=== PATIENT | female | born 1970 | race Caucasian/White ===

== ENCOUNTER 2020-06-08 19:47 | Emergency (ER) | payer OTHER, SELFPAY ==
[2020-06-08 19:49] VITALS: BP 168/94; PULSE 72; RESP 18; TEMP 36.6; O2SAT 99
--- NOTE | 2020-06-08 20:12 | ED.FEMALEGU ---
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 Patient states that she is on menopause and has not bled in 2 years. Patient denies any chest pain, shortness of breath, abdominal pain, rectal bleeding, nausea, vomiting, fever or chills. Patient states that she has an appointment w for an ultrasound ordered by her PCP. Related Data Home Medications Medication Instructions Recorded Confirmed carvedilol 06/08/20 esomeprazole magnesium mg 06/08/20 hydrochlorothiazide 06/08/20 hydrocodone-acetaminophen 06/08/20 lorazepam 06/08/20 magnesium oxide mg 06/08/20 Allergies Allergy/AdvReac Type Severity Reaction Status Date / Time amoxicillin [From Amoxil] Allergy Rash Verified 06/08/20 19:54 Penicillins Allergy Rash Verified 06/08/20 19:54 Review of Systems Review of Systems: All systems reviewed & are unremarkable except as noted in HPI and below Constitutional: Constitutional: Denies body ache(s), Denies chills, Denies excessive sweating, Denies fatigue, Denies fever(s), Denies headache(s), Denies lethargy, Denies malaise, Denies weakness and Denies weight loss Eyes: Eyes: Denies blurry vision, Denies change in vision and Denies loss of vision ENT: Denies dizziness, Denies ear discharge, Denies headache(s), Denies lip swelling, Denies epistaxis, Denies nasal congestion, Denies neck pain, Denies throat swelling and Denies tongue swelling Cardiovascular: Cardiovascular: Denies chest pain, Denies chest pain at rest, Denies chest pain with activity, Denies diaphoresis, Denies rapid heart rate, Denies edema, Denies irregular heart rhythm, Denies lightheadedness, Denies palpitations, Denies dyspnea and Denies dyspnea on exertion Respiratory: Respiratory: Denies chest congestion, Denies cough, Denies hemoptysis, Denies dyspnea and Denies dyspnea on exertion Gastrointestinal: Gastrointestinal: Denies abdominal pain, Denies melena, Denies hematochezia, Denies diarrhea, Denies nausea, Denies vomiting and Denies hematemesis Musculoskeletal: Musculoskeletal: Denies abnormal gait, Denies deformity, Denies joint swelling, Denies limited range of motion, Denies neck pain and Denies numbness Neurologic: Denies Abnormal speech present, Denies abnormal gait, Denies confusion, Denies dizziness, Denies headache(s), Denies focal weakness, Denies loss of vision, Denies numbness, Denies Other visual disturbances, Denies Sensory deficit (Neuro) and Denies weakness Psychiatric: Psychiatric: Denies confusion, Denies depression, Denies auditory hallucinations, Denies homicidal ideation and Denies suicidal ideation Endocrine: Endocrine: Denies cold intolerance, Denies excessive sweating, Denies fatigue, Denies heat intolerance and Denies palpitations Hematologic/Lymphatic: Hematologic/Lymphatic: Denies easy bruising Allergic/Immunologic: Allergic/Immunologic: Denies lip swelling, Denies throat swelling and Denies tongue swelling PMF Social History Social History Gender identity (if verbalized by the patient): Female Sexual Orientation (if Verbalized by the Patient): Straight or Heterosexual Comments Past medical history: Exam Const: General: cooperative, healthy appearing, comfortable, no acute distress, well developed, alert and awake; No confusion Orientation/consciousness: oriented to person, oriented to place, oriented to time, patient oriented x3 and No confusion Limitations: no limitations HENMT: Head: normal to inspection, normocephalic and atraumatic Ears: he
[2020-06-08 20:58] LABS: Basophils Percent Auto 0.4 % (0.2-1.2); Eosinophils Absolute Auto 0.2 K/mm3 (0-0.3); Eosinophils Percent Auto 2.4 % (0-4.4); Hematocrit 39.1 % (37.0-47.0); Hemoglobin 12.4 g/dL (12.0-15.0); Immature Granulocyte Absolute 0.02 K/mm3 (0.00-0.031); Immature Granulocyte Percent A 0.2 % (0-0.5); Lymphocytes Absolute Auto 1.62 K/mm3 (0.9-3.2); Lymphocytes Percent Auto 19.2 % (18.3-44.2); Mean Corpuscular HGB Conc 31.7 g/dl (32-36); Mean Corpuscular Hemoglobin 25.5 pg (26-34); Mean Corpuscular Volume 80.5 fl (80-100); Mean Platelet Volume 10.8 fl (7.4-10.4); Monocytes Absolute Auto 0.8 K/mm3 (0.1-0.6); Monocytes Percent Auto 9.4 % (2.6-8.5); Neutrophils Absolute Auto 5.8 K/mm3 (1.3-6.7); Neutrophils Percent Auto 68.4 % (45.5-73.1); Platelet Count Result 208 k/mm3 (150-375); Red Blood Count 4.86 M/mm3 (4.2-5.4); Red Cell Distribution Width 16.7 % (11.5-14.5); White Blood Count 8.4 K/mm3 (4.5-10.0)
[2020-06-08] MEDS: SODIUM CHLORIDE 0.9% IV 1,000 ML 999 ML IV CONT (20:59)
[2020-06-08 21:08] LABS: INR 0.9; Prothrombin Time 12.7 Seconds (11.1-14.7)
[2020-06-08 21:09] LABS: Partial Thromboplastin Time 41.6 SECONDS (22.3-36.8)
[2020-06-08 21:19] LABS: Alanine Aminotransferase 20 U/L (4-35); Albumin Level 4.1 g/dL (3.5-5.1); Alkaline Phosphatase 76 U/L (38-126); Anion Gap 5 mmol/L (8-16); Aspartate Amino Transferase 20 U/L (14-36); Bilirubin,Total 0.1 mg/dL (0.2-1.3); Blood Urea Nitrogen 22 mg/dL (7-17); Calcium 8.9 mg/dL (8.4-10.2); Carbon Dioxide 30 mmol/L (22-30); Chloride 106 mmol/L (98-107); Estimated CRCL calculation 140 ml/min; Estimated Glomerular Filt Rate > 60; Glucose 133 mg/dL (65-105); Potassium 3.6 mmol/L (3.4-5.0); Sodium 141 mmol/L (137-145)
[2020-06-08 23:10] VITALS: BP 146/109; PULSE 60; RESP 14; TEMP 36.6; O2SAT 100
== END 2020-06-08 23:11 | disposition home or self-care (01) ==
PROVIDERS: Emergency Provider Emergency Medicine; PCP Family Medicine
DX: N93.8 Other specified abnormal uterine and vaginal bleeding (principal)
CPT/HCPCS: 36415; 80053; 85025; 85610; 85730; 96360; 99283; J7030

== ENCOUNTER → 2020-12-19 13:37 | Outpatient (CLI) | payer OTHER, SELFPAY ==
--- NOTE | ~2020-12-19 | XR_ITS ---
EXAMINATION: XR knee RT 3V DATE: 12/19/2020 14:40 INDICATION: Right knee pain. TECHNIQUE: 3 views of right knee including standing views were obtained. COMPARISON: Right knee radiographs 12/01/2019 FINDINGS: There is varus angulation at the knee. No fracture. There is moderate osteoarthritis of med ial and patellofemoral compartments and mild osteoarthritis of lateral compartment. No knee joint eff usion. IMPRESSION: 1. Moderate right knee osteoarthritis. Reviewed, dictated and finalized at location A.
--- NOTE | ~2020-12-19 | XR_ITS ---
EXAMINATION: XR knee LT 3V DATE: 12/19/2020 14:40 INDICATION: Left knee pain. TECHNIQUE: 3 views of left knee including standing views were obtained. COMPARISON: Left knee radiographs 12/01/2019 FINDINGS: There is varus angulation at the knee. No fracture. There is moderate osteoarthritis of med ial and patellofemoral compartments and mild osteoarthritis of lateral compartment. IMPRESSION: 1. Moderate left knee osteoarthritis. Reviewed, dictated and finalized at location A.
== END ==
PROVIDERS: Visit Provider Orthopaedic Surgery
DX: M17.0 Bilateral primary osteoarthritis of knee (principal)
CPT/HCPCS: 73562

== ENCOUNTER → 2022-05-31 10:14 | Outpatient (CLI) | payer OTHER, SELFPAY ==
--- NOTE | ~2022-05-31 | CT_ITS ---
EXAMINATION: CT abdomen pelvis w con DATE: 05/31/2022 10:44 INDICATION: Abdominal pain. History of bariatric surgery in January 2022 TECHNIQUE: Computed tomography (CT) of the abdomen and pelvis was performed with 100 CC Omnipaque 350 intravenous contrast. Automated exposure control and iterative reconstruction technique were employe d. Exam dose: 1018.63 mGy-cm total exam DLP. COMPARISON: None. FINDINGS: Right foramen of Bochdalek fat-containing hernia. Lung bases are clear of infiltrate or con solidation. Normal heart size. No pericardial or pleural effusion. Small sliding hiatal hernia. Status post gastric bypass surgery. Up to approximately 6 cm wide 5.7 cm vertical dimension supraumbilical ventral abdominal wall defect with fat herniation. The liver, gallbladder, bile ducts, pancreas, pancreatic duct and spleen are unremarkable. Normal morphology of the adrenal glands. No renal mass lesion or urinary tract calculus or hydroureteronephrosis. The urinary bladder and uter us are unremarkable. Status post bilateral tubal ligation. Diverticulosis of left and right colon, most numerous in the sigmoid and descending colon areas. No C T evidence of diverticulitis. No bowel obstruction or intraperitoneal free air is detected. The appen sommer is not definitively identified but no inflammatory changes noted in the right lower quadrant. Degenerative spurring of the lower thoracic spine. Grade 1 anterolisthesis at L4-5 and L5-S1 due to degenerative change at the apophyseal joints. Moderately severe degenerative disc disease at L5-S1. IMPRESSION: Prominent upper ventral wall defect with fat herniation Status post gastric bypass surgery Small sliding hiatal hernia Diverticulosis of the colon; no evidence of diverticulitis Reviewed, dictated and finalized at Location A. Reviewed, dictated and finalized at location B.
[2022-05-31 10:35] LABS: Estimated Glomerular Filt Rate > 60
== END ==
PROVIDERS: PCP Family Medicine
DX: R10.9 Unspecified abdominal pain (principal); R19.00 Intra-abdominal and pelvic swelling, mass and lump, unspecified site; K44.9 Diaphragmatic hernia without obstruction or gangrene; K57.30 Diverticulosis of large intestine without perforation or abscess without bleeding; Z98.84 Bariatric surgery status
CPT/HCPCS: 74177; Q9967

== ENCOUNTER 2024-08-05 23:14 | Emergency (ER) | payer OTHER, SELFPAY ==
--- OUTSIDE RECORDS SUMMARY | 2024-08-05 23:17 | XMS_ITS | Continuity of Care Document ---
Author Organization [facility] Address [address] [place] [address] Phone Care Team Providers Care Manager Architecture Name Role Phone Deacon Contreras Unavailable Unavailable [...] Diagnoses Date Provider Providers Copied on Encounter [facility] [address], [id number], tel:[phone] [place] No Information Jan-0 6- 4 Mudouglasl Deacon. [address] [facility], [address], [facility], [place]. tel: [phone] [place] [address] [facility] [address], [place], [place], [id number], tel:[phone] [place] No Information Nov-0 5-202 4 Muehl Deacon. [address] [facility], [facility] [address], [place], [facility], [place]. tel: [phone] Referring Provider: Connor Stevens, [address], [place], [address]. tel:[phone], [id number], tel:[phone] [place] No Information 0 4 Muehl Deacon. [address] [facility], [facility] [address] tel:[phone] Referring Provider: Connor Stevens [address] [address]. tel:[phone], [id number], tel:[phone] [place] No Information 4 Jan Worthy. [address] [facility], [address] tel: [phone] Referring Provider: Connor Stevens, [address] [address]. tel:[phone] Family History Family Member Type Diagnosis Age At Onset No Information Payers Payer name Insurance type Covered republican ID Raphaelstarr trejo(s) Jg [id number] Social History Type Description Quantity Date Captured [...]
--- OUTSIDE RECORDS SUMMARY | 2024-08-05 23:17 | XMS_ITS | Clinical Summary ---
Author Organization [facility] Address [address] [place] [address] Care Team Providers Care Door Clamper Name Role Phone Laura Baugh MD Primary Care Provider [phone] Source Comments [facility],non-owned Affiliates and Associated Physician Practices is amultiple site organization consisting of ambulatory clinics and hospital sitesin [place], [place], [place] and [place]. This disclosure is being madepursuant to the Care Everywhere program and may not contain all information available regarding this patient. Last updated [facility] Allergies Active Allergy Reactions Criticality Noted Date Comments Amoxicillin Urticaria Medium 07/10/2018 Erythromycin Rash Medium 07/10/2018 Penicillins Rash Medium 07/10/2018 Medications * Be aware that medications may not be up to date on this document. Alwaysverify current medications with the patient. Esomeprazole Magnesium (NEXIUM PO) Active HYDROCODONE BITARTRATE PO Active LORAZEPAM PO Active carvedilol (COREG) 6.25 MG tablet Take 6.25 mg by mouth 2 times daily with morning and evening meal Active benzonatate (TESSALON) 200 MG capsuleIndicatio ns:Upper respiratory tract infection, unspecified type Take 1 capsule by mouth 3 times daily as needed for Cough 30 capsule 0 Active albuterol HFA (PROVENTIL;MY EDENILSON;PROAIR) 108 (90 Base) MCG/ACT inhalerIndicatio ns:History of wheezing Inhale 2 puffs by mouth every 4 hours as needed for Wheezing 1 Inhaler 0 Active Social History Tobacco Use Types Packs/Day Years Used Date Smoking Tobacco: Former Cigarettes Q uit: 2017 Smokeless Tobacco: Never Tobacco Cessation:Counseling Given: Yes Comments No Sex and Gender Information Value Date Recorded Sex Assigned at Not on file Legal Sex Female 8:24 AM CDT Gender Identity Not on file Sexual Orientation Not on file Last Filed Vital Signs Vital Sign Reading Time Taken Comments Blood Pressure 126/80 05/13/2019 3:42 PM CDT Pulse 68 05/13/2019 3:42 PM CDT Temperature 36.7 C (98.1 F) 05/13/2019 3:42 PM CDT Respiratory Rate 18 05/13/2019 3:42 PM CDT Oxygen Saturation 98% 05/13/2019 3:42 PM CDT Inhaled Oxygen Concentration - - Weight 163.3 kg (360 lb) 05/13/2019 3:42 PM CDT Height 165.1 cm (5' 5) 05/13/2019 3:42 PM CDT Body Mass Index 59.91 05/13/2019 3:42 PM CDT Plan of Treatment Health Maintenance Due Date Last Done Comments COLOGUARD (AGES 45-75) - COLON CA SCREENING 1972 COLON MONITORING 1972 COLONOSCOPY - COLON CA SCREENING 1972 CT COLONOGRAPHY - COLON CA SCREENING 1972 Colorectal Cancer Screening 1972 FIT - COLON CA SCREENING 1972 FLEX SIG - COLON CA SCREENING 1972 LIPID TESTING 1972 MAMMOGRAM 1972 PAP SMEAR 1972 HIV SCREENING 10/30/1987 HEPATITIS C SCREENING 10/25/1990 DTAP/TDAP/TD VACCINES (1 - Tdap) 10/30/1991 HEPATITIS B VACCINE (1 of 3 - 19+ 3-dose series) 10/30/1991 SCREENING FOR DIABETES 07/10/2018 PNEUMOCOCCAL VACCINE 50+ (1 of 1 - PCV) 2022 ZOSTER VACCINE (1 of 2) 2022 COVID-19 VACCINE (1 - 2023- season) 2023 DEPRESSION SCREENING 03/03/2024 INFLUENZA VACCINE (Season Ended) 2024 12/28/2018, 12/12/2016, 01/15/2016, Additional history exists HIB VACCINE Aged Out No longer eligi ble based on patient's age to complete this topic HPV VACCINE Aged Out No longer eligi ble based on patient's age to complete this topic MENINGOCOCCAL (Group B) VACCINE SHARED DECISION-MAKING Aged Out No longer eligible based on patient's age to complete this topic MENINGOCOCCAL GROUPS A/C/Y/W VACCINE Aged Out No longer eligible based on patient's age to complete this topic Insurance AETNA Care Teams Door Clamper Relationship Specialty Start Date End Date Laura Baugh MD [address] [place] [id number] PCP - General Family Medicine 11/15/16
--- OUTSIDE RECORDS SUMMARY | 2024-08-05 23:17 | XMS_ITS | Encounter Summary ---
Author Organization [facility] Address [address] [place] [address] Care Team Providers Care Email Campaign Manager Name Role Phone Laura Baugh MD Primary Care Provider + Reason for Visit * Reason Onset Date Comments Medical management 02/05/2022 Gave message to INGA Shields/Chayito finley Encounter Details Date Type Department Care Team (Late st Contact Info) Description 02/05/2022 Telephone [facility] Admitting [address] [place] [address] [place] [address] [address] [facility] [place] [address] Medical management (Gave message to INGA Shields/Chayito finley) Social History Tobacco Use Types Packs/Day Years Used Date Smoking Tobacco: Former Cigarettes Q uit: 03/14/2014 Alcohol Use Standard Drinks/Week Comments Not Currently 0 (1 standard drink = 0.6 oz pur e alcohol) Comments No Sex and Gender Information Value Date Recorded Sex Assigned at Not on file Legal Sex Female 1:25 PM CDT Gender Identity Not on file Sexual Orientation Not on file COVID-19 Exposure Response Date Recorded In the last 10 days, have yo u been in contact with someone who was confirmed or suspected to have Coronavirus/COVID-19? 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
--- OUTSIDE RECORDS SUMMARY | 2024-08-05 23:17 | XMS_ITS | Clinical Summary ---
Author Organization [facility] Address [address] [place] [address] Phone Care Team Providers Care Director Of Securities And Real Estate Name Role Phone aLura Baugh MD Primary Care Provider + Allergies Active Allergy Reactions Criticality Noted Date Comments Amoxicillin Hives High 01/25/2022 Chest and throat hives Erythromycin Other (See Comments) Medium 07/10/2018 Cramps vomiting diarrhea Penicillins Hives,Rash High 01/30/2017 As a child Medications LORazepam (ATIVAN) 2 mg tablet Take 2 mg by mouth every 6 hours as needed for Anxiety. Active carvediloL (COREG) 6.25 mg tablet Take 6.25 mg by mouth 2 times daily with meals. Active hydroCHLOROthiaz trevor 25 mg tablet Take 25 mg by mouth daily. Active esomeprazole (NexIUM) 20 mg Capsule, Delayed Release(E.C.) Take 20 mg by mouth daily at bedtime. Active famotidine (PEPCID) 20 mg tablet Take 1 Tablet (20 mg) by mouth 2 times daily. 60 Tablet 2 02/06/2022 7:54 AM FIBERGLASS TUBE MOLDER 02/04/2022 Active ondansetron (Zofran) 4 mg Tablet Take 1 Tablet (4 mg) by mouth every 8 hours as needed for Nausea/Vomi ting. 50 Tablet 02/06/2022 7:54 AM FIBERGLASS TUBE MOLDER 02/04/2022 Active HYDROcodone-acet aminophen (HYCET) 7.5-325 mg/15 mL SolutionIndicati ons:Abdominal wall abscess at site of surgical wound Take 15 mL by mouth every 6 hours as needed for Pain. Max Daily Amount: 60 mL 150 mL 02/18/2022 Active Active Problems Problem Noted Date Diagnosed Date HTN (hypertension), benign 02/05/2022 Social History Tobacco Use Types Packs/Day Years Used Date Smoking Tobacco: Former Cigarettes Q uit: 03/14/2014 Tobacco Cessation:Counseling Given: Not Answered Alcohol Use Standard Drinks/Week Comments Not Currently 0 (1 standard drink = 0.6 oz pur e alcohol) Comments No Sex and Gender Information Value Date Recorded Sex Assigned at Not on file Legal Sex Female 1:25 PM CDT Gender Identity Not on file Sexual Orientation Not on file Last Filed Vital Signs Vital Sign Reading Time Taken Comments Blood Pressure 119/88 02/18/2022 12:51 PM FIBERGLASS TUBE MOLDER Pulse 76 02/18/2022 12:51 PM FIBERGLASS TUBE MOLDER Temperature 36.8 C (98.2 F) 02/18/2022 7:55 AM FIBERGLASS TUBE MOLDER Respiratory Rate 25 02/18/2022 12:51 PM FIBERGLASS TUBE MOLDER Oxygen Saturation 98% 02/18/2022 12:51 PM FIBERGLASS TUBE MOLDER Inhaled Oxygen Concentration - - Weight 123.4 kg (272 lb) 02/18/2022 7:55 AM FIBERGLASS TUBE MOLDER Height 162.6 cm (5' 4) 02/18/2022 7:55 AM FIBERGLASS TUBE MOLDER Body Mass Index 46.69 02/18/2022 7:55 AM FIBERGLASS TUBE MOLDER Plan of Treatment Health Maintenance Due Date Last Done Comments DTAP/TDAP/TD VACCINES (1 - Tdap) 10/30/1991 HEPATITIS B VACCINES (1 of 3 - 19+ 3-dose series) 10/30/1991 HPV/Cotest (21-29) 1993 CERVICAL CANCER SCREENING 2002 HPV/Cotest (30-65) 2002 PAP SMEAR 2002 BREAST CANCER SCREENING 2012 COLORECTAL SCREENING 2017 Colorectal Cancer Screening 2017 FIT-DNA Q 3 years 2017 FIT/FOBT Q 1 year 2017 Flex Sig/CT Colonography Q 5 years 2017 ZOSTER VACCINE (1 of 2) 2022 INFLUENZA VACCINE (#1) 2023 9, 12/12/2016, 01/15/2016, Additional history exists Medical Devices Implanted Type Area Luster Repairer Device Identifier Shelf Expiration Date Model / Serial / Lot Seamguard Endogia 60 [id number] - [id number] Implanted:Qty : 2 on 02/04/2022 by Lashell Huang MD at [facility] N/A: Abdomen [employer] [id number] / / Seamguard Endogia 60 [id number] - [id number] Implanted:Qty : 3 on 02/04/2022 by Lashell Huang MD at [facility] N/A: Abdomen [employer] [id number] / / Insurance AETNA CHOICE POS II RX [facility] [employer] Advance Directives For more information, please contact: [phone] * Full Code (Latest Code Status on File) Date Activated Date Inactivated Comments 02/04/2022 8:26 PM 02/06/2022 12:34 AM * Full Code Date Activated Date Inactivated Comments 02/04/2022 8:14 AM 02/04/2022 8:25 PM Care Teams Director Of Securities And Real Estate Relationship Specialty Start Date End Date Laura Baugh MD [address] [place] [id number] PCP - General Family Practice 02/05/22
--- OUTSIDE RECORDS SUMMARY | 2024-08-05 23:17 | XMS_ITS | Clinical Summary ---
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 0 Active LORazepam (ATIVAN) 2 MG Tablet TAKE 1 TABLET BY MOUTH THREE TIMES A DAY NEEDED 0 Active HYDROcodone-jered taminophen (NORCO) 7.5-325 MG Tablet Take by mouth. 7 Active magnesium oxide (MAG-OX) 400 MG Tablet TAKE 1 TABLET BY MOUTH TWICE A DAY 0 Active Active Problems Problem Noted Date Diagnosed Date Hypertension 01/30/2017 Obesity 01/30/2017 Obstructive sleep apnea (adult) (pediatric) 01/03 Anxiety disorder 01/30/2017 Social History Tobacco Use Types Packs/Day Years Used Date Smoking Tobacco: Former Smokeless Tobacco: Current Comments Unknown Sex and Gender Information Value Date Recorded Sex Assigned at Not on file Legal Sex Female 7:32 AM [employer] Gender Identity Not on file Sexual Orientation Not on file Last Filed Vital Signs Vital Sign Reading Time Taken Comments Blood Pressure 136/82 02/11/2020 8:09 AM [employer] Pulse 61 02/11/2020 8:09 AM [employer] Temperature 36.8 C (98.3 F) 02/11/2020 8:09 AM [employer] Respiratory Rate 18 02/11/2020 8:09 AM [employer] Oxygen Saturation 98% 02/11/2020 8:09 AM [employer] Inhaled Oxygen Concentration - - Weight 145.2 kg (320 lb) 02/11/2020 8:09 AM [employer] Height - - Body Mass Index - - Plan of Treatment Health Maintenance Due Date Last Done Comments Hepatitis C Virus (HCV) Screening 1972 TdaP Immunization 1972 Hepatitis B Immunization (1 of 3 - 19+ 3-dose series) 10/30/1991 Colonoscopy 2017 Colorectal Cancer Screening 2017 Cologuard 2022 Immunochemical Fecal Occult Blood 2022 Pneumococcal Immunization (50+ years) (1 of 1 - PCV) 2022 Zoster Immunization (1 of 2) 2022 SARS-COV-2 Immunization (1 - season) 2023 Influenza Immunization (Season Ended) 2024 12/28/2018, 12/19/2017, 12/12/2016, Additional history exists Respiratory Syncytial Virus (RSV) Immunization (Adult) (1 - 1-dose 75+ series) 10/30/2047 Human Papillomavirus (HPV) Immunization Aged Out No longer eligible based on patient's age to complete this topic Meningococcal Immunization (ACWY) Aged Out No longer eligible based on patient's age to complete this topic Rotavirus Immunization Aged Out No lo nger eligible based on patient's age to complete this topic Insurance [employer] Care Teams Racing Car Driver Relationship Specialty Start Date End Date Laura Solitario MD [address] [place] [address] PCP - General Family Medicine 02/11/20
--- OUTSIDE RECORDS SUMMARY | 2024-08-05 23:17 | XMS_ITS | Data Portability ---
Author Organization [facility], Main Office Address [address] [place] [address] Care Team Providers Care Vessel Captain Name Role Phone STUART BAUGH Primary Care Provider STUART BAUGH Referring Provider Assessment Encounter Date Assessment Date Assessment LastModified by Organization Details LastModified Time 07/20/2024 07/20/2024 04/29/2024: Free testosterone 0.29 BUN 22 H/H 11.0/34.7 [email or web address] Not available 07/20/2024 09:17:58 Plan of Treatment Reminders Order Date Submit Date Provider Last Modified By Organization Details Last Modified Time Details Appointments Any 15 2024 01:00P M Tru hammer MD Not available Not available Not available Lab vitamin D, 25-hydrox y, total, serum [email or web address], [address] [place], [address], 07/28/2024 15:08:01 CMP, serum or plasma 2024 025 [email or web address] [facility], [address] [place], [address], 07/28/2024 15:00:59 CBC w/ auto diff [email or web address], [address] [place], [address], 07/28/2024 15:01:09 lipid panel, serum [address], [address] [place], [address], 07/28/2024 15:01:19 TSH, serum or plasma [address], [address] [place], [address], 07/28/2024 15:08:21 vitamin B12 + folate, serum or blood [address], [address] [place], [address], 07/28/2024 15:08:12 estrogen, total, serum 2024 025 [facility], [address] [place], [address], 05/04/2024 00:07:48 progester one, serum 2024 025 [facility], [address] [place], [address], 04/30/2024 12:10:48 testoster one, free + total, serum 2024 025 [facility], [address] [place], [address], 05/04/2024 15:10:09 TSH, serum or plasma 2024 025 [facility], [address] [place], [address], 04/29/2024 10:31:15 FSH (follicle -stimulat ing hormone), serum [address], [address] [place], [address], 05/19/2024 15:13:02 lh (luteiniz ing hormone), serum [address] [place] [address], [address] [place], [address], 05/19/2024 15:13:02 vitamin D, 25-hydrox y, total, serum [address], [address] [place], [address], 05/19/2024 15:13:02 CMP, serum or plasma 2024 025 [facility], [address] [place], [address], 04/29/2024 09:54:43 CBC w/ auto diff 2024 025 [facility], [address] [place], [address], 04/29/2024 09:17:36 lipid panel, serum 2024 025 [facility], [address] [place], [address], 04/29/2024 09:54:38 noninvasi ve colorecta l cancer DNA + occult blood screening , QL, stool 2024 025 ABERDE[facility] (Cologuard Orders Only), [address], [address], [place], [address], 05/04/2024 18:10:11 vitamin B12 + folate, serum or blood [address], [address] [place], [address], 05/19/2024 15:13:03 drug screen, urine 2023 024 [email or web address] [facility], [address] [facility], [place], [address], 11/19/2023 08:03:46 drug of abuse panel, urine [address], [address] [place], [address], 09/24/2023 09:41:48 vitamin B12, serum [address], [address] [place], [address], 09/24/2023 09:41:48 CBC [address], [address] [place], [address], 09/24/2023 09:41:49 Referral gynecolog ist referral - Please call patient to schedule an appointme nt. Thank you. 2024 025 Vilma Lowe MD, [address], [address], [place], [address], 06/01/2024 08:48:34 gynecolog ist referral - Please call patient to schedule an appointme nt. Thank you. 2023 024 [email or web address] Daylin Kennedy MD, [address] [facility], [address], [place], [address], 10/15/2023 09:55:37 orthopedi c surgeon referral - Please call patient to schedule an appointme nt. Thank you. 2023 024 [email or web address] [facility], [address], [place], [address], 10/16/2023 08:35:53 Procedures None recorded. Surgeries None recorded. Imaging MAMMO, screening , digital, bilateral - Please call patient to schedule. [facility] [address] [place], [address], 04/29/2024 11:15:34 bone density - Please call patient to schedule. [address] ([facility]), [address] [place], [address], 07/29/2024 12:03:29 Medication Orders None recorded. Patient TargetsNo targets recorded. Patient InstructionsNo instructions recorded. Reason for Referral Utilization Management Manager Referral for Re ferral needed establish care, pap Please call patient to schedule an appointment. Thank you. Referring Physician: Drew Gerard, Family Medicine, Encounter Date: 09/16/2023 Orthopedic Surgeon Referral for Pain of left shoulder joint left shoulder pain Please call patient to schedule an appointment. Thank you. Referring Physician: Drew Gerard, Family Medicine, Encounter Date: 09/16/2023 Utilization Management Manager Referral for Gy necologic examination Please call patient to schedule an appointment. Thank you. Referring Physician: Tru Garduno, Internal Medicine, Encounter Date: 04/22/2024 Results Created Date Observation Date Name Description Value Unit Range Abnormal Flag Note LastModifiedBy Organization Detail LastModifiedTime 11/21/19 24 11/21/2023 DRUG MONIT OR, PANEL 3, W/CON F, URINE amphetamines NEGATI VE NG/mL <500 Not Available [address] [address] [place], [address], 11/21/2023 15:42:47 11/21/19 24 11/21/2023 DRUG MONIT OR, PANEL 3, W/CON F, URINE benzodiazepi brittnee POSITI VE NG/mL <100 abnormal Not Available [address] [address] [place], [address], 11/21/2023 15:42:47 11/21/19 24 11/21/2023 DRUG MONIT OR, PANEL 3, W/CON F, URINE alphahydroxy alprazolam NEGATI VE NG/mL <25 Not Available [facility] [place] [address] [place], [address], 11/21/2023 15:42:47 11/21/19 24 11/21/2023 DRUG MONIT OR, PANEL 3, W/CON F, URINE alphahydroxy midazolam NEGATI VE NG/mL <50 Not Available [address] [address] [place], [address], 11/21/2023 15:42:47 11/21/19 24 11/21/2023 DRUG MONIT OR, PANEL 3, W/CON F, URINE alphahydroxy triazolam NEGATI VE NG/mL <50 Not Available [address] [address] [place], [address], 11/21/2023 15:42:47 11/21/19 24 11/21/2023 DRUG MONIT OR, PANEL 3, W/CON F, URINE aminoclonaze rhoda NEGATI VE NG/mL <25 Not Available [address] [address] [place], [address], 11/21/2023 15:42:47 11/21/19 24 11/21/2023 DRUG MONIT OR, PANEL 3, W/CON F, URINE hydroxyethyl flurazepam NEGATI VE NG/mL <50 Not Available [address] [address] [place], [address], 11/21/2023 15:42:47 11/21/19 24 11/21/2023 DRUG MONIT OR, PANEL 3, W/CON F, URINE lorazepam 464 NG/mL <50 high Not Available [address] [address] [place], [address], 11/21/2023 15:42:47 11/21/19 24 11/21/2023 DRUG MONIT OR, PANEL 3, W/CON F, URINE nordiazepam NEGATI VE NG/mL <50 Not Available [address], [address], 11/21/2023 15:42:47 11/21/19 24 11/21/2023 DRUG MONIT OR, PANEL 3, W/CON F, URINE oxazepam NEGATI VE NG/mL <50 Not Available [address] [address] [address], [place], [address], 11/21/2023 15:42:47 11/21/19 24 11/21/2023 DRUG MONIT OR, PANEL 3, W/CON F, URINE temazepam NEGATI VE NG/mL <50 Not Available [address] [address] [address] , [place], [address], 11/21/2023 15:42:47 11/21/19 24 11/21/2023 DRUG MONIT OR, PANEL 3, W/CON F, URINE benzodiazepi brittnee comments See Benzo tigre montñao Notes , LDT Notes Not Available [address] [address] [address] , [place], [address], 11/21/2023 15:42:47 11/21/19 24 11/21/2023 DRUG MONIT OR, PANEL 3, W/CON F, URINE cocaine metabolite NEGATI VE NG/mL <150 Not Available [address] [address] , [place], [address], 11/21/2023 15:42:47 11/21/19 24 11/21/2023 DRUG MONIT OR, PANEL 3, W/CON F, URINE marijuana metabolite NEGATI VE NG/mL <20 Not Available [address] [address] [address] , [place], [address], 11/21/2023 15:42:47 11/21/19 24 11/21/2023 DRUG MONIT OR, PANEL 3, W/CON F, URINE opiates NEGATI VE NG/mL <100 Not Available [address] [address] , [place], [address], 11/21/2023 15:42:47 11/21/19 24 11/21/2023 DRUG MONIT OR, PANEL 3, W/CON F, URINE oxycodone NEGATI VE NG/mL <100 Not Available [address] [address] [address] , [place], [address], 11/21/2023 15:42:47 11/21/19 24 11/21/2023 DRUG MONIT OR, PANEL 3, W/CON F, URINE creatinine 57.7 mg/dL > or = 20.0 Not Available [facility] [place] [address] [place], [address], 11/21/2023 15:42:47 11/21/19 24 11/21/2023 DRUG MONIT OR, PANEL 3, W/CON F, URINE pH 6.4 4.5-9. 0 Not Available [facility] [place] [address] [place], [address], 11/21/2023 15:42:47 11/21/19 24 11/21/2023 DRUG MONIT OR, PANEL 3, W/CON F, URINE oxidant NEGATI VE mcg/m L <200 Not Available [facility] [place] [address] [place], [address], 11/21/2023 15:42:47 11/21/19 24 11/21/2023 DRUG MONIT ORING TEMPL ATE notes and comments This drug testi ng is for medic al treat ment only. Prisca sis was perfo rmed as non-f orens ic testi ng and these resul ts shoul d be used only by healt hcare provi ders to rende r diagn osis or treat ment, or to monit or progr ess of medic al condi tions . Bautista montaño Notes : Loraz epam detec duane is consi stent with the use of the drug Loraz epam. LDT Notes : Confi rmati on tests were devel oped and their prisca tical perfo rmanc e juan cteri stics have been deter mined by [facility]. It has not been clear ed or appro eleuterio by the FDA. This assay has been valid ated pursu ant to the CLIA regul ation s and is used for clini felice purpo ses. Healt hcare Provi ders needi ng Inter preta tion anita tance , pleas e conta ct us at 1.877 .40.R XTOX (1.87 7.407 .9869 ) M-F, 8am to 10pm EST Not Available [facility] [address] [address], [place], [address], 11/21/2023 15:42:48 04/29/19 25 04/29/2024 screjenna terry t ozzie, bilat [facility] [address] [facility] [address] [facility], [place] [address] Patiayana t Name: SOCO HERNANDEZ Access ion #: [id number] Sex: F : 1970 0 Dictat ed By: Kingsley prieto Attend ing Physic sana: USMAN DOUGHERTY Orderxiao ng Physic sana: USMAN DOUGHERTY Exam Date: 2024 08:39 AM Exam Name: MG SCRN BREAST OZZIE BILAT Admitt ing Diagno sis(es ): PROCED URE: SCREEN ING MAMMOG NIKKI WITH TOMOSY NTHESI S REASON FOR EXAM: screen ing mammog nikki. No person al histor y of breast cancer or prior breast interv ention . No family histor y of breast cancer . COMPAR DANIA: MG SCRN BREAST OZZIE BILAT 3D on DOS: 2 TECHNI QUE: Bilate ral CC and MLO views obtain ed. Images were obtain ed using a Digita l Tomosy nthesi s Unit. Standa rd 2D and 3D Tomosy nthesi s images were review ed. This examin ation was analyz ed using Lunit Insigh t DBT/MM G in additi on to a radiol ogist review , an AI softwa re develo ped to enhanc e the effect ivenes s of breast cancer screen ing with mammog kofi. FINDIN GS: BREAST COMPOS ITION: B - There are scatte red areas of fibrog landul ar densit y. In the right breast , no asymme trical parenc hymal patter n, javier ectura l distor tion, pleomo rphic microc alcifi cation s or masses . In the left breast , no asymme trical parenc hymal patter n, javier ectura l distor tion, pleomo rphic microc alcifi cation s or masses . IMPRES CAROLA: No mammog raphic eviden ce of malign najma. RECOMM ENDATI ON: Recomm end annual mammog nikki. ASSESS MENT: Page 1 [facility] [address] [address] [phone] Patien t Name: SOCO HERNANDEZ Access ion #: [id number] Sex: F : 1970 0 Dictat ed By: Kingsley prieto Attend ing Physic sana: MURTUZ A, BAHRAI NWMALAIKA Orderi ng Physic sana: BAHRAI NWALA, MURTUZ A Exam Date: 2024 08:39 AM Exam Name: MG MEADOWS BREAST OZZIE BILAT Admitt ing Diagno sis(es ): BIRADS : 1 - Negati ve Electr onical ly Signed by: Kingsley prieto at 2024 08:11: 02 AM Page 2 INTERFACE [facility] (Imaging) [address] [place], [address], 04/29/2024 11:13:14 04/29/19 25 04/29/2024 MAMMO , scree una, digit al, bilat eral No observ ation record ed. [facility] [address] [place], [address], 04/29/2024 11:15:34 05/04/19 25 05/03/2024 DEXA, axial skele ton [facility] [address] [place] [address] Patien t Name: SOCO HERNANDEZ Access ion #: [id number] Sex: F : 1970 7 Locati on: RAD Attend ing Physic sana: AMITA ARMAS, MURTUZ A Orderi ng Physic sana: BAHRAI NWALA, MURTUZ A Exam Date: 3/3/20 25 7:48 AM Exam Name: XR DEXA-H IPS PELVIS SPINE Admitt ing Diagno sis(es ): RADIOL OGY REPORT - FINAL EXAM: XR DEXA-H IPS PELVIS SPINE HISTOR Y: screen ing for osteop orosis 53-yea r-old female with osteop orosis screen ing. COMPAR DANIA: None availa ble. TECHNI QUE: Dual energy x-ray of absorp tion examin ation of the bilate ral hips and lumbar spine was perfor med in AP projec tion. FINDIN GS: Lumbar Spine (L1-L4 ): The mean bone minera l densit y is 1.213 g/cm2 hydrox yapati te, correl ating with a T-scor e of 0.2. Bilate ral hips: The mean bone minera l densit y is 0.827 g/cm2 calciu m hydrox yapati te, correl ating with a T-scor e of -1.4. Page 1 of 2 [facility] Name: SOCO HERNANDEZ Access ion #: [id number] Sex: F : 1970 7 Exam Date: 05/04/19 7:48 AM Exam Name: XR DEXA-H IPS PELVIS SPINE Admitt ing Diagno sis(es ): Risk of major osteop orotic fractu re 5%; risk of hip fractu re 0.5%. IMPRES CAROLA: 1. The patien t's lumbar spine T-scor e is consis tent with normal bone minera l densit y. 2. The patien t's bilate ral hip T-scor e is consis tent with osteop enia. Accord ing to the World Health Organi zation , T-scor e values greate r than -1.0 are normal , values betwee n -1.0 and -2.5 are catego rized as osteop enia, T-scor e of -2.5 or more are catego rized as osteop orosis . Create d and electr onical ly signed by: Pascual west MD Signed Date: 05/04/19 2:10 PM (CT) Dictat ed by: Pascual west MD (CT) (CT) Page 2 of 2 INTERFACE [facility] ([facility]) [address] [place], [address], 05/03/2024 15:12:47 Result Notes None recorded. Problems Name Problem SNOMED Code Status Onset Date Resolution Date Notes Provider Name and Address Organization Details Recorded Time Tobacco user 224836751 Active Not Available [facility] 3 00:15:43 Radiothera py follow-up 633116026 Active Not Available [facility] 3 00:15:43 Esophageal erosions 726300472 Active Not Available [facility] 3 00:15:43 Panic attack 311756588 Active Not Available [facility] 3 00:15:43 Current tear of medial cartilage AND/OR meniscus of knee Active Not Available [facility] 3 00:15:43 Knee pain Active Not Available [facility] 3 00:15:43 Bronchitis 99325035 Active Not Available [facility] 3 00:15:43 Vitamin D deficiency 26031665 Active 2016 Not Available [facility] 3 00:15:43 Sinusitis 16121814 Active Not Available [facility] 3 00:15:43 Hiatal hernia with gastroesop hageal reflux 494194954 Active Not Available [facility] 3 00:15:44 Umbilical hernia 655563089 Active Not Available [facility] 3 00:15:44 Spasm 07226499 Active Not Available [facility] 3 00:15:44 Pain of bilateral knee joints 6937893327416 04 Active 2021 Not Available [facility] 3 00:15:44 Anxiety 41295665 Active Not Available [facility] 3 00:15:44 Sprain of knee 31866530 Active Not Available [facility] 3 00:15:44 Chondromal acia 82230739 Active Not Available [facility] 3 00:15:44 Terminal esophageal web 49194083 Active Not Available [facility] 3 00:15:44 Obstructiv e sleep apnea syndrome 57317206 Active 2016 Not Available [facility] 3 00:15:44 Cyst of ovary 93225271 Active Not Available [facility] 3 00:15:44 Hiatal hernia 28322319 Active Not Available [facility] 3 00:15:44 Dizziness 323155132 Active 2022 Not Available [facility] 3 00:15:44 Acute conjunctiv itis 51698294 Active 2022 Not Available [facility] 3 00:15:44 Cough 08399035 Active 2022 Stuart Baugh MD [address], [address], [place], [address] , [employer] [facility] 3 13:18:08 Pain of left shoulder joint 2893039068155 9109 Active 2023 CLIFTON Robertson [address], [address], [place], [address] , [employer] [facility] 4 10:29:27 Insomnia 993869916 Active 2023 CLIFTON Robertson [address], [address], [place], [address] , [employer] [facility] 4 15:27:31 Essential hypertensi on 31032811 Active 2024 Tru clements MD [address], [address], [place], [address] , [employer] [facility] 5 09:42:54 Gastroesop hageal reflux disease without esophagiti s 890428519 Active 2024 Tru clements MD [address], [address], [place], [address] , [employer] [facility] 5 09:43:29 Serum vitamin B12 below reference range 560371671 Active 2024 Tru clements MD [address] [facility], [facility] [address], [place], [address] , [facility] [employer] [facility] 5 12:30:46 Anemia 983109437 Active 2024 Tru clements MD [address] [facility] [facility] [address], [place], [address] , [employer] [facility] [employer] [facility] 5 12:09:00 Problem Notes None recorded. Procedures Surgical History Date Name Laterality Status Provider Name and Address Organization Details Recorded Time Knee Replacement completed EMILY Murry [facility] [employer] [facility] 07/20/2024 12:01:52 Tubal Ligation completed Bella Thompson MA [employer] [facility] [employer] [facility] 04/22/2024 12:01:20 Imaging Results None recorded. Procedure Notes None recorded. Medical Equipment None Reported. Allergies Allergen ID Allergen Name Allergen Category Reaction Reaction Severity Criticality Documentation Date Start Date Code Code System Note Provider Name and Address Organization Details Recorded Time Product containin g penicilli n (product) medicatio n Not available Not available Not available 05/01/2022 35293 8001 SNOMED Not Available [facility] 3 08:14:06 ciproflox acin medicatio n myalgias (muscle pain) Not available Not available 05/01/2022 2551 RxNorm Not Available [facility] 3 08:14:06 Medications Name Sig Start Date Stop Date Status Note LastModified by Organization Details LastModified Time BD Luer-Rivera Syringe 3 mL 25 x 1 1/2 USE TO INJECT B-12 ONCE MONTHLY active Not Available Not Available No t Available carvedilo l 6.25 mg tablet TAKE 1 TABLET BY MOUTH EVERY 12 HOURS 08/23 completed Not Available Not Available Not Available clindamyc in HCl 300 mg capsule 02/17 completed Not Available Not Available Not Available albuterol sulfate 2.5 mg/3 mL (0.083 %) solution for nebulizat ion Inhale 3 mL 4 times a day by nebuliza tion route as needed. 04/22 completed Not Available Not Available Not Available trazodone 50 mg tablet TAKE 1 TO 2 TABLETS BY MOUTH AT BEDTIME NEEDED FOR INSOMNIA 04/22 completed Not Available Not Available Not Available azithromy lawrence 250 mg tablet TAKE 2 TABLETS BY MOUTH TODAY, THEN TAKE 1 TABLET DAILY FOR 4 DAYS DIRECTED 04/22 completed Not Available Not Available Not Available hydrocodo ne 5 mg-acetam inophen 325 mg tablet TAKE 1 TABLET BY MOUTH EVERY 4 TO 6 HOURS NEEDED FOR PAIN 05/08 completed Not Available Not Available Not Available ondansetr on HCl 4 mg tablet TAKE 1 TABLET BY MOUTH EVERY 8 HOURS NEEDED FOR NAUSEA/V OMITING 04/22 completed Not Available Not Available Not Available prednison e 20 mg tablet TAKE 2 TABLETS BY MOUTH EVERY DAY FOR 5 DAYS 09/10 completed Not Available Not Available Not Available phentermi ne 15 mg capsule TAKE ONE CAPSULE BY MOUTH EVERY DAY 03/31 completed Not Available Not Available Not Available clindamyc in HCl 150 mg capsule TAKE 3 CAPSULES (450 MG) BY MOUTH 3 TIMES A DAY FOR 7 DAYS 09/10 completed Not Available Not Available Not Available Diflucan 150 mg tablet Take 1 tablet every week by oral route as directed for 7 days. 12/18 completed Not Available Not Available Not Available metronida zole 500 mg tablet TAKE 1 TABLET BY MOUTH TWICE A DAY FOR 10 DAYS 09/10 completed Not Available Not Available Not Available ciproflox acin 250 mg tablet TAKE 1 TABLET BY MOUTH TWICE A DAY FOR 10 DAYS 09/10 completed Not Available Not Available Not Available triamcino lone acetonide 0.1 % topical cream APPLY A THIN LAYER TO THE AFFECTED AREA(S) BY TOPICAL ROUTE 2 TIMES PER DAY prn rash 11/02 completed Not Available Not Available Not Available phentermi ne 30 mg capsule Take 1 capsule every day by oral route for 30 days. active Not Available Not Available No t Available carvedilo l 3.125 mg tablet TAKE 1 TABLET BY MOUTH ONCE A DAY active Not Available Not Available No t Available Kenalog 40 mg/mL suspensio n for injection 1 ml IM x 1 12/21 completed [facility] [address]-78 61-01 Not Available Not Available Not Available oxycodone -acetamin ophen 5 mg-325 mg tablet TAKE 1 TO 2 TABLETS BY MOUTH EVERY 6 HOURS NEEDED FOR PAIN FOR 3 DAYS 09/10 completed Not Available Not Available Not Available alprazola m 0.5 mg tablet TK 1 T PO BID PRN active Not Available Not Available No t Available hydromorp hanna 2 mg tablet TAKE 1 TO 2 TABS BY MOUTH EVERY 8 HRS NEEDED FOR PAIN DECREASE TO 1 TAB DAILY SOON POSSIBLE 04/22 completed Not Available Not Available Not Available citalopra m 20 mg tablet 1/2 tab daily 06/07 completed Internal note: 1/2 to every other dayExter nal note: 1/2 tab po qday Not Available Not Available Not Available famotidin e 20 mg tablet TAKE 1 TABLET BY MOUTH TWICE A DAY NEEDED 07/20 completed Not Available Not Available Not Available magnesium oxide 400 mg (241.3 mg magnesium ) tablet TAKE 1 TABLET BY MOUTH TWICE A DAY active Not Available Not Available No t Available triamcino lone acetonide 0.025 % topical cream APPLY TO AFFECTED AREA TWICE A DAY 04/22 completed Not Available Not Available Not Available Silvadene 1 % topical cream APPLY A 1/16 INCH (1.5 MM) THICK LAYER TO ENTIRE BURN AREA BY TOPICALR OUTE 2 TIMES PER DAY 12/18 completed Not Available Not Available Not Available lorazepam 2 mg tablet TAKE 1 TABLET BY MOUTH EVERY NIGHT FOR 30 DAYS 07/20 completed Not Available Not Available Not Available hydrocodo ne 7.5 mg-acetam inophen 325 mg tablet TAKE 1 TABLET BY MOUTH EVERY 6 HOURS NEEDED FOR KNEE PAIN 09/10 completed Not Available Not Available Not Available cyanocoba misbah (vit B-12) 1,000 mcg/mL injection solution INJECT 1 ML INTO THE MUSCLE ONCE MONTHLY active Not Available Not Available No t Available neomycin- polymyxin -dexameth 3.5 mg/mL-10, 000 unit/mL-0 .1% eye drops INSTILL 1 DROP INTO AFFECTED EYE(S) EVERY 3 TO 4 HOURS 09/10 completed Not Available Not Available Not Available nystatin 100,000 unit/gram topical cream APPLY TO THE AFFECTED AREA(S) BY TOPICAL ROUTE 2 TIMES PER DAY x 14 days 12/18 completed Not Available Not Available Not Available promethaz ine 25 mg tablet TK 1 T PO Q 4 H PRN active Not Available Not Available No t Available diclofena c sodium 75 mg tablet,de layed release 01/14 completed Not Available Not Available Not Available codeine 10 mg-guaife nesin 100 mg/5 mL oral liquid Take 10 mL every 4 hours by oral route as needed. 09/19 completed do not take before driving Not Available Not Available Not Available hydrochlo rothiazid e 25 mg tablet TAKE 1 TABLET BY MOUTH EVERY DAY 08/23 completed Not Available Not Available Not Available furosemid e 20 mg tablet TAKE 1 TABLET BY MOUTH EVERY DAY NEEDED 11/02 completed Not Available Not Available Not Available norethind susana acetate 5 mg tablet 04/22 completed Not Available Not Available Not Available lorazepam 1 mg tablet TAKE 1.5 TABLETS BY MOUTH EVERY DAY FOR 30 DAYS active Not Available Not Available No t Available methylpre dnisolone 4 mg tablets in a dose pack TAKE 6 TABLETS ON DAY 1 DIRECTED ON PACKAGE AND DECREASE BY 1 TAB EACH DAY FOR A TOTAL OF 6 DAYS 09/10 completed Not Available Not Available Not Available hydrocodo ne 7.5 mg-acetam inophen 500 mg tablet 1 po qday prn 07/22 completed Not Available Not Available Not Available esomepraz ole magnesium 20 mg capsule,d elayed release TAKE 1 CAPSULE BY MOUTH EVERY DAY 04/22 completed Not Available Not Available Not Available hydroxyzi ne pamoate 25 mg capsule TAKE 1 CAPSULE BY MOUTH ONCE A DAY NEEDED X30 DAYS active Not Available Not Available No t Available Bactrim DS 800 mg-160 mg tablet Take 1 tablet every 12 hours by oral route for 10 days. 12/18 completed Not Available Not Available Not Available hydrocodo ne 7.5 mg-acetam inophen 325 mg/15 mL oral solution TAKE 15 ML BY MOUTH EVERY 6 HOURS NEEDED FOR PAIN. MAX 60 MLS/24 HOURS 09/10 completed Not Available Not Available Not Available topiramat e 50 mg tablet TAKE 1 TABLET BY MOUTH ONCE A DAY WITH DINNER. 04/22 completed Not Available Not Available Not Available omeprazol e OTC active Not Available Not Available Not Available Tums 2012 active Not Available Not Available Not Avai lable ProAir HFA 90 mcg/actua tion aerosol inhaler 2 puffs q4 hours prn sob 04/22 completed Not Available Not Available Not Available Nascobal 500 mcg/spray nasal spray [place] 1 spray every week by intranas al route. 04/22 completed Not Available Not Available Not Available calcium 600 mg (as carbonate )-vitamin D3 10 mcg (400 unit) tablet TAKE 1 TABLET BY MOUTH TWICE A DAY active Not Available Not Available No t Available hydrochlo rothiazid e 12.5 mg tablet TAKE 1 TABLET BY MOUTH EVERY DAY 04/22 completed Not Available Not Available Not Available Vitamin D3 125 mcg (5,000 unit) tablet Take 1 tablet every day by oral route. active Not Available Not Available No t Available Tudorza Pressair 400 mcg/actua tion breath activated Inhale 1 puff every 12 hours by inhalati on route. 05/24 completed Dispense Qty: 1. Not Available Not Available Not Available Daily-Vit e (with folic acid) 400 mcg tablet TAKE 1 TABLET BY MOUTH EVERY DAY active Not Available Not Available No t Available Vitals Date Recorded Body height Body mass index (BMI) Body weight Body temperature Heart rate Oxygen saturation Oxygen saturation in Arterial blood by Pulse oximetry Systolic blood pressure Diastolic blood pressure Provider Name and Address Organization Details Last Updated DateTime 5 165.1 cm 38.3 kg/m2 004861. 25 g 98.2 [degF] 51 /min 99 % 99 % 140 mm[Hg] 84 mm[Hg] Bella Thompson MA [facility] [employer] 5 11:55:35 Date Recorded Body height Body mass index (BMI) Body weight Body temperature Heart rate Systolic blood pressure Diastolic blood pressure Provider Name and Address Organization Details Last Updated DateTime 5 165.1 cm 38.6 kg/m2 791627. 43 g 97.6 [degF] 60 /min 132 mm[Hg] 76 mm[Hg] EMILY Rodney [facility] [employer] [facility] 5 12:03:34 Date Recorded Body height Provider Name an d Address Organization Details Last Updated DateTime 09/16/2023 165.1 cm Judith Dinero RN [facility] [employer] 09/16/2023 10:24:20 Date Recorded Body height Body mass index (BMI) Body weight Body temperature Heart rate Oxygen saturation Oxygen saturation in Arterial blood by Pulse oximetry Systolic blood pressure Diastolic blood pressure Provider Name and Address Organization Details Last Updated DateTime 4 165.1 cm 36.1 kg/m2 21481.5 4 g 100 [degF] 70 /min 100 % 100 % 124 mm[Hg] 86 mm[Hg] Judith Dinero RN [facility] [employer] 4 10:30:43 Social History Question Answer Notes LastModified by Organizat ion Details LastModified Time Tobacco Smoking Status Former Smoker quit 2015 EMILY Rodney, [facility] [employer] 07/20/2024 12:01:38 Do You Have An Advance Directive? No [id number] Information not available 05/01/2022 What Is Your Level Of Caffeine Consumption? Occasional [id number] Information not available 05/01/2022 In The 14 Days Before Symptom Onset, Have You Had Close Contact With A Laboratory-confi rmed COVID-19 While That Case Was Ill? No [id number] Information not available 05/01/2022 In The 14 Days Before Symptom Onset, Have You Had Close Contact With A Person Who Is Under Investigation For COVID-19 While That Person Was Ill? No [id number] Information not available 05/01/2022 What Type Of Diet Are You Following? SPECIFIC Keto [id number] Information not available 05/01/2022 Have There Been Any Changes To Your Family Or Social Situation? No Information not available 04/22/2024 When Did You Quit Smoking? 6-10yearssincelast cigarette [id number].[id number] Information not available 05/01/2022 Do You Use Insect Repellent Routinely? No Information not available 04/22/2024 Where Do You Live? [facility] Information not available 04/22/2024 Do You Have A Medical Power Of Combat Control? No [id number] Information not available 05/01/2022 What Was The Date Of Your Most Recent Tobacco Screening? 07/20/2024 [email or web address] Information not available 07/20/2024 How Many Children Do You Have? 4 Information not available 04/22/2024 Do You Have Any Pets? Yes Information not available 04/22/2024 What Is Your Relationship Status? Information not available 04/22/2024 Do You Use Your Seat Belt Or Car Seat Routinely? Yes Information not available 04/22/2024 Do You Have Smoke And Carbon Monoxide Detectors In Your Home? Yes Information not available 04/22/2024 At What Age Did You Start Smoking Tobacco? 15 [id number] Information not available 05/01/2022 Are You Passively Exposed To Smoke? No Information not available 04/22/2024 Are There Any Smokers In Your House? No Information not available 04/22/2024 Do You Use Sunscreen Routinely? No Information not available 04/22/2024 Have You Recently Traveled Abroad? No [id number] Information not available 05/01/2022 Do You Have Any Dietary Restrictions? No [id number].[id number] Information not available 05/01/2022 Sex: Unknown Functional Status Question Answer Note LastModified by Coridon ion Details LastModified Time Do you use any illicit or recreational drugs? No Information not available 04/22/2024 Do you or have you ever used any other forms of tobacco or nicotine? No Information not available 04/22/2024 What is your level of alcohol consumption? None [id number] Information not available 05/01/2022 Are you currently employed? Yes Information not available 04/22/2024 What is your exercise level? Occasional [id number] Information not available 05/01/2022 Mental Status Question Answer Note LastModified by Organization D etails LastModified Time Do you feel stressed (tense, restless, nervous, or anxious, or unable to sleep at night)? [id number] Information not available 04/22/2024 Family History Relationship Description Onset Age of this Age Resolved Age Notes LastModified by Organization Details LastModified Time Father No current problems or disability [email or web address] Not available 04/22 11:59:27 Mother No current problems or disability [email or web address] Not available 04/22 11:59:27 Medical History No medical history recorded. Gynecological History Statement/Question Response How many live births 4 Date of Last Mammogram 07/16/2021 Date of Last Colonoscopy Date of Last Mammogram Date of LMP 07/01/2020 Date of Last Pap Current Control Method Tubal Ligat ion Obstetrics History GPAL:G 4 P 4 0 0 4 Type Value Multiple Births 0 Full Term 4 Induced 0 Spontaneous 0 Premature 0 Living 4 Ectopics 0 Total 4 Immunizations Vaccine Type Date Status Note Provider Nam e and Address Organization Details Recorded Time Influenza, split virus, quadrivalent, PF 9 completed Not Available [facility] 12/24/2022 00:15:44 Influenza, split virus, quadrivalent, preservative 6 completed Not Available [facility] 12/24/2022 00:15:44 Influenza, split virus, quadrivalent, PF 5 completed Not Available [facility] 12/24/2022 00:15:44 Influenza, split virus, quadrivalent, PF 7 completed Not Available [facility] 12/24/2022 00:15:44 Influenza, split virus, trivalent, PF 3 completed Not Available [facility] 12/24/2022 00:15:44 Past Encounters Encounter ID Performer Location Encounter Start Date Encounter Closed Date Diagnosis/Indication Diagnosis SNOMED-CT Code Diagnosis ICD10 Code Diagnosis Note [id number] Stuart Baugh MD [facility] [address] [facility] [address] [facility] [place] [address] 06/22/2020 00:00:00 01/02/2022 14:32:00 [id number] Stuart Baugh MD [facility] Primary Care [facility] [address] [facility] [address] [place] [address] 02/06/2021 00:00:00 02/26/2021 15:32:58 [id number] Stuart Baugh MD [facility] Primary Care [facility] [address] [facility] [address] [place] [address] 05/08/2021 00:00:00 01/02/2022 14:27:48 [id number] Stuart Baugh MD [facility] Primary Care [facility] [address] [facility] [address] [place] [address] 10/30/2021 00:00:00 10/30/2021 21:54:27 [id number] Stuart Baugh MD [facility] Primary Care [facility] [address] [facility] [address] [place] [address] 01/16/2022 00:00:00 01/16/2022 18:19:25 [id number] SPIKE Lira [facility] Primary Care [facility] [address] [facility] [address] [place] [address] 08/23/2022 08:05:01 08/23/2022 17:26:37 Anxiety 07473784 F41.9 stable, continue ativan Dizziness 487959373 R42 stable, possibly d/t decreased caffeine absorption continue bp meds as ordered Medication monitoring 39 7836081 Z51.81 [id number] Stuart Baugh MD [facility] Primary Care [address] [place] [address] 09/10/2022 09:46:23 09/10/2022 10:20:59 Dietary management surveillance 836049524 Z71.3 ok to start topiramate 50 mg qday Anxiety 19231967 F41.9 stable on lorazepam 2 mg po bid prnUDS appropriat e 08/2022f/u in 6 months or sooner if needed [id number] Stuart Baugh MD [facility] Primary Care [address] [place] [address] 03/13/2023 09:17:31 03/13/2023 10:11:20 Cough 68064645 R05.9 call/retur n if no improvemen t in 1-2 days or sooner if neededrevi ewed s/s that warrant urgent/neha rgent eval in meantime Anxiety 11880056 F41.9 stable on lorazepam 2 mg po bid prnUDS appropriat e 08/2022no refill neededf/u in 6 months or sooner if needed History of bariatric surgical procedure 094051568 Z98.[address] Carlos Alvarez q3 months for labs and f/urefill sent [id number] Drew Gerard [facility] Primary Care [address] [place] [address] 09/16/2023 10:03:50 09/16/2023 11:01:03 Long-term drug therapy 154575554 Z79.899 Pt denies any lending, selling, or borrowing of medication s. Denies any cp, sob, palpitatio ns, or unusual weight loss.Revie wed controlled substance agreement requiremen ts. Refill given.[place] checked today. Anemia screening 07 Z13.0 Referral needed 05356331 9 Z76.89 Pain of le ft shoulder joint 2167226334 4185828 M25.121 [id number] SPIKE Mendez-C [facility] Primary Care [address] [place] [address] 11/06/2023 16:23:01 11/06/2023 16:39:09 [id number] SPIKE Robertson-Nadia [facility] Primary Care [address] [place] [address] 11/12/2023 10:17:40 11/12/2023 11:39:31 Long-term drug therapy 511144932 Z79.899 Pt denies any lending, selling, or borrowing of medication s. Denies any cp, sob, palpitatio ns, or unusual weight loss.[facility] controlled substance agreement requiremen ts. Refill given.[place] checked today.last time she took the lorazepam was 11/10 (half dose) Pre-surger y evaluation 225148106 Z01.818 EKG and labs done through surgeon-WN Lsurgicla clearance form filled out [id number] Tru clements MD [facility] Internal Med [address] [place] [address] 04/22/2024 11:27:53 04/22/2024 12:49:27 Screening - NAD 721690588 Z13.9 C-scope: Needs to do cologuard Mammogram: Get this PAP: See OB DEXA: Get this Get yearly flu shot, get tdapCan do Shingrix vaccineCan do COVID 19 boosters RTC in 3 months, do labs, ER if worse Screening mammography 24 426402 Z12.31 Screening for osteoporosis 145205890 Z13.820 Z78.0 Gynecologi c examination 30360283 Z01.419 Screening for malignant neoplasm of colon 645711482 Z12.11 Essential hypertension 95677633 I10 On coregGet labs Gastroesop hageal reflux disease without esophagitis 954224026 K21.9 On famotidine On omeprazole Declines any EGD, does understand s the risks for not doing the EGD History of bariatric surgical procedure 469632389 Z98.84 Get labsSevioleta Gonzalez in [facility] Vitamin D deficiency 347 79018 E55.9 Serum dillon min B12 below reference range 486713288 R79.89 Anxiety 84794465 F41.9 On lorazepam 2mg dailyNot taking the hydroxyzin e as she has 'dreams with itNot suicidal or homicidalN ow must see psychiatry [id number] Tru clements MD [facility] Internal Med [facility] [address] [facility] [place] [address] 07/20/2024 11:37:11 07/20/2024 12:29:27 Screening - NAD 308996521 Z13.9 C-scope: Cologuard 04/27/2024 : Negative Mammogram: 04/29/2024 : Neg PAP: See OB referred last OV 04/22/2024 DEXA: 05/03/2024 : Osteopenia , more ca and vit d Get yearly flu shot, get tdapCan do Shingrix vaccineCan do COVID 19 boosters RTC in 3 months, do labs, ER if worse, she did verbalize her understand ing of the above Essential hypertension 17307870 I10 On coregGet labs Gastroesop hageal reflux disease without esophagitis 883257066 K21.9 On famotidine On omeprazole Declines any EGD, does understand s the risks for not doing the EGD History of bariatric surgical procedure 314024845 Z98.84 Get labsSevioleta Gonzalez in [facility] discuss use of GLP-1 but she is reluctant to take this as she has a relative who ended with 'gastropar esis' and had to have a pacemaker in the stomach Vitamin D deficiency 347 85795 E55.9 Serum dillon min B12 below reference range 638036590 R79.89 Anxiety 82434443 F41.9 On lorazepam 1mg take 1.5 tabs dailyNot taking the hydroxyzin e as she has 'dreams with itNot suicidal or homicidalS ees Dr Langford Anemia 224492133 D64.9 More iron in diet, get labs Health Concerns Section Related Observation LastModified by Organization Detai ls LastModified Time None Recorded Concern Status LastModified by Organization Details LastModified Time None Recorded Advance Directives Directive N: Payers Encounter Date Sequence Insurance Name Policy Number Policy Ott Covered Member ID Ott Member ID Guarantor Name 09/16/2023 1 [employer] (POS) [id number] Malachi Godinez [id number] 11/06/2023 1 [employer] (POS) [id number] Malachi Godinez [id number] 11/12/2023 1 [employer] (POS) [id number] Malachi Godinez [id number] [place] 04/22/2024 1 [employer] (POS) [id number] Malachi Godinez [id number] 07/20/2024 1 [employer] (POS) [id number] Malachi Godinez [id number] [place] Notes Date Note Type Note Provider Name and Address Organization Details Recorded Time 09/16/2023 text/html pt is here for f/u CLIFTON Robertson [address] [facility], [place] [address], [place], [address], [facility] [employer] [facility] 09/16/2023 10:46:09 11/12/2023 text/html pt is here for surg clearance CLIFTON Robertson [address] [facility] [address], [place], [address], [employer] [facility] 11/12/2023 10:59:06 04/22/2024 text/html OV 04/22/2024:Here to establish care Present Hx:Sunshine morley Here to discuss above and also get labs, she would like to get labs for also 'menopause' Tru Garduno MD [address], [place], [address], [employer] [facility] 04/22/2024 18:43:31 07/20/2024 text/html OV 04/22/2024:Here to establish care Present Hx:YAZisraelmago y Here to discuss above and also get labs, she would like to get labs for also 'menopause' OV 07/20/2024: Here for her f/u apt, she is doing well today Tru Garduno MD [address], [address], [place], [address], [employer] 07/20/2024 17:49:06 OBGyn Episode No OBEpisode recorded.
--- OUTSIDE RECORDS SUMMARY | 2024-08-05 23:17 | XMS_ITS | CONTINUITY OF CARE DOCUMENT ---
Author Name nicolas valenzuela Address Unknown Organization [facility] Address [address] [place] [address] Phone [phone] Care Team Providers Care Electric Hoist Operator Name Role Phone Edna Clarke MD Unavailable [phone] STUART LY MD Unavailable [phone] STUART LY MD Unavailable [phone] PROBLEMS Condition Status Date Provider Notes Swelling of bilateral legs active Edna diallo MD DVT active Desmond Pemberton RN SOB active Edna Clarke MD Tobacco use, quit active Edna Clarke MD Obesity active Edna Clarke MD Sleep apnea, obstructive - on CPAP active Ambrose Clarke MD Hypertension active Edna Clarke MD Anxiety active Edna Clarke MD Cardiac murmur active Edna Clarke MD Abnormal EKG active Edna Clarke MD Knee pain, left active Edna Clarke MD Depression active Brian Nacht Bradycardia active Declan Ocampo ENCOUNTERS Date Type Provider Location Encounter Diag nosis 8 - 8 In-person encounter Office Visit Edna Posada Office 8 - 8 In-person encounter Office Visit Edna Tang Office 1 - 1 In-person encounter Office Visit Edna Clarke MD [facility] 7 - 7 In-person encounter Office Visit Edna Clarke MD [facility] Bradycardia 8 - 8 In-person encounter Office Visit Edna Clarke MD [facility] Office 0 - 2 In-person encounter Office Visit Edna Clarke MD [facility] Office 9 - 9 In-person encounter Office Visit Edna Clarke MD [facility] Office 8 - 8 In-person encounter Office Visit Edna Clarke MD [facility] Depression 3 - 3 In-person encounter Office Visit Edna Clarke MD [facility] Office 6 - 7 In-person encounter Office Visit Edna Clarke MD [facility] Office 7 - 7 In-person encounter Office Visit Edna Clarke MD [facility] Office 0 - 0 In-person encounter Office Visit Edna Clarke MD [facility] Office 5 - 5 In-person encounter Office Visit Edna Clarke MD [facility] Knee pain, left 0 - 4 In-person encounter Office Visit Edna Clarke MD [facility] SOBTobacco use, quitObesitySleep apnea, obstructive - on CPAPHypertensionAnxietyCardiac murmurAbnormal EKG VITAL SIGNS Date Observation Value Provider Body Mass Index (Ratio) 36.15 kg/m2 Declan Ocampo blood pressure, cuff size large Ke rri Олегuenenfelder blood pressure, diastolic 80 mm[Hg] Ke rri Gruenenfelder blood pressure, systolic 130 mm[Hg] Ker ri Sushilnenfelder oxygen saturation, oximetry 97 % María Gruenenfelder respiratory rate E&M 14 /min María G ruenenfelder pulse rate 63 /min María Gruenenfe lder weight E&M 224 [lb_av] María Gruenenfe lder height E&M 66 [in_i] María Gruenenfe er Body Mass Index (Ratio) 35.51 kg/m2 Declan Ahmedzai blood pressure, diastolic 86 mm[Hg] Li nkLogic blood pressure, systolic 142 mm[Hg] Nikkie kLogic blood pressure, diastolic 86 mm[Hg] Ky maxim Dorsey blood pressure, systolic 142 mm[Hg] [facility] heldelilah Dorsey oxygen saturation, oximetry 97 % Marissa Dorsey pulse rate 67 /min Marissa collins weight E&M 220 [lb_av] Marissa collins respiratory rate E&M 14 /min Zina Stantonand blood pressure, cuff size large Ky maxim Dorsey height E&M 66 [in_i] Marissa collins Body Mass Index (Ratio) 35.83 kg/m2 Declan Ahmedzai blood pressure, cuff size regular Ke rri Gruenenfelder blood pressure, diastolic 92 mm[Hg] Ke rri Gruenenfelder blood pressure, systolic 148 mm[Hg] Ker ri Gruenenfelder oxygen saturation, oximetry 99 % María Gruenenfelder respiratory rate E&M 12 /min María G ruenenfelder pulse rate 58 /min María Gruenenfe lder weight E&M 222 [lb_av] María Gruenenfe lder height E&M 66 [in_i] María Gruenenfe lder Body Mass Index (Ratio) 38.09 kg/m2 Declan Ocampo blood pressure, cuff size large Ke rri Gruenenfelder blood pressure, diastolic 82 mm[Hg] Ke rri Gruenenfelder blood pressure, systolic 136 mm[Hg] Ker ri Gruenenfelder oxygen saturation, oximetry 99 % María Gruenenfelder respiratory rate E&M 14 /min María G ruenenfelder pulse rate 70 /min María Gruenenfe lder weight E&M 236 [lb_av] María Gruenenfe lder height E&M 66 [in_i] María Gruenenfe lder Body Mass Index (Ratio) 38.57 kg/m2 Yanelis Jacksonemy blood pressure, cuff size large Ke rri Gruenenfelder blood pressure, diastolic 66 mm[Hg] Ke rri Gruenenfelder blood pressure, systolic 110 mm[Hg] Ker ri Gruenenfelder oxygen saturation, oximetry 95 % María Gruenenfelder respiratory rate E&M 16 /min María G ruenenfelder pulse rate 63 /min María Gruenenfe lder weight E&M 239 [lb_av] María Gruenenfe lder height E&M 66 [in_i] María Gruenenfe lder Body Mass Index (Ratio) 50.35 kg/m2 Damian peña Nacht blood pressure, diastolic 80 mm[Hg] Sallie nkLogic blood pressure, systolic 140 mm[Hg] Nikkie Mcnultyogic blood pressure, cuff size large Ke rri Gruenenfelder blood pressure, diastolic 80 mm[Hg] Ke rri Gruenenfelder blood pressure, systolic 140 mm[Hg] Santos ri Maryelder oxygen saturation, oximetry 97 % María Hernandezelder respiratory rate E&M 14 /min María G ruenenfelder pulse rate 76 /min María Hernandeze lder weight E&M 312 [lb_av] María Marye lder height E&M 66 [in_i] María Samanthanfe [facility] Body Mass Index (Ratio) 52.29 kg/m2 Popeye Clarke MD oxygen saturation, oximetry 96 % [facility] pulse rate 79 /min [facility] blood pressure, diastolic 80 mm[Hg] [facility] Block blood pressure, systolic 122 mm[Hg] Brynn [facility] weight E&M 324 [lb_av] [facility] blood pressure, resting Yes [facility] respiratory rate E&M 16 /min [facility] height E&M 66 [in_i] [facility] Body Mass Index (Ratio) 51.48 kg/m2 Popeye Clarke MD blood pressure, cuff size regular Kr isty Donavan blood pressure, diastolic 90 mm[Hg] Kr isty Donavan blood pressure, systolic 140 mm[Hg] Kri sty [place] pulse rate 75 /min Megan Donavan oxygen saturation, oximetry 98 % Megan [place] respiratory rate E&M 19 /min Megan Donavan weight E&M 319 [lb_av] Megan [place] height E&M 66 [in_i] Megan Body Mass Index (Ratio) 50.19 kg/m2 Jord en Gordy blood pressure, cuff size regular Mahin mark blood pressure, diastolic 70 mm[Hg] Kr carinety blood pressure, systolic 140 mm[Hg] Kri lonny pulse rate 75 /min Megan oxygen saturation, oximetry 98 % Megan respiratory rate E&M 18 /min Megan weight E&M 311 [lb_av] Megan height E&M 66 [in_i] Megan Body Mass Index (Ratio) 48.42 kg/m2 Gordy Plurad blood pressure, diastolic 82 mm[Hg] Francisco conde Omer blood pressure, systolic 128 mm[Hg] Jennifer donovan Omer oxygen saturation, oximetry 99 % [facility] respiratory rate E&M 16 /min [facility] pulse rate 80 /min [facility] weight E&M 300 [lb_av] [facility] height E&M 66 [in_i] [facility] Body Mass Index (Ratio) 50.68 kg/m2 Popeye Clarke MD pulse rate 72 /min [facility] respiratory rate E&M 16 /min Kiran Wolfe oxygen saturation, oximetry 98 % Kiran Wolfe blood pressure, diastolic 96 mm[Hg] Uriel Wolfe blood pressure, systolic 138 mm[Hg] Marce Wolfe weight E&M 314 [lb_av] [facility]an [facility] height E&M 66 [in_i] Kiran [facility] Body Mass Index (Ratio) 50.68 kg/m2 Popeye Clarke MD blood pressure, diastolic 100 mm[Hg] Uriel Wolfe blood pressure, systolic 140 mm[Hg] Marce Wolfe oxygen saturation, oximetry 99 % Kiran Wolfe respiratory rate E&M 16 /min Kiran Yaneth pulse rate 84 /min Kiran [facility] weight E&M 314 [lb_av] Kiran [facility] height E&M 66 [in_i] [facility] Body Mass Index (Ratio) 49.74 kg/m2 Popeye Clarke MD blood pressure, diastolic 94 mm[Hg] Randi Edwardsshana Blanca blood pressure, systolic 141 mm[Hg] Lisy Blanca oxygen saturation, oximetry 96 % Godwin Blanca respiratory rate E&M 20 /min DarleenStarla Gonsalesenson pulse rate 81 /min Godwin Frank ken weight E&M 308.2 [lb_av] Godwin Gonsales akua height E&M 66 [in_i] Godwin Frank [facility] blood pressure, resting Yes Gordy Greer Body Mass Index (Ratio) 49.38 kg/m2 Gordy Greer blood pressure, cuff size large Ke rri Cammie blood pressure, diastolic 100 mm[Hg] Ke rri Cammie blood pressure, systolic 162 mm[Hg] Santos Bonds oxygen saturation, oximetry 98 % María Bonds respiratory rate E&M 20 /min María contreras pulse rate 105 /min María ramos weight E&M 306 [lb_av] María alvaradoer height E&M 66 [in_i] María Ramsey lder ALLERGIES Allergy Name Onset Date Reaction Criticality Status ADDI Low Criticality active PCN Low Criticality active AMOXICILLIN Low Criticality active RESULTS Date Observation Value Provider Reference Range Interpretation Location C-reactive protein, serum 1.72 mg/dL LinkLogic Units converted. See lab report for original value. High rheumatoid factor <14 IU/mL LinkLogic <14 Normal antinuclear antibody POSITIVE Link[facility] NEGATIVE Abnormal alanine aminotransferase (SGPT), serum 11 1/L Link[facility]ic 6-29 Normal aspartate aminotransferase (SGOT), serum 11 1/L [facility] 10-30 Normal alkaline phosphatase, serum 63 1/L [facility] 33-115 Normal bilirubin, serum, total 0.3 mg/dL [facility] 0.2-1.2 Normal albumin/globulin ratio, serum 1.6 (calc) [facility] 1.0-2.5 Normal globulins, serum, total 2.7 G/DL (CALC) [facility] 1.9-3.7 Normal albumin, serum 4.2 g/dL Link[facility]ic 3.6-5.1 Normal protein, total, serum 6.9 g/dL [facility] 6.1-8.1 Normal calcium, serum 9.7 mg/dL [facility] 8.6-10.2 Normal carbon dioxide, venous blood 26 mmol/L [facility] 20-31 Normal chloride, serum 104 mmol/L [facility] 98-110 Normal potassium, serum 4.5 mmol/L [facility] 3.5-5.3 Normal sodium, serum 138 mmol/L [facility] 135-146 Normal urea nitrogen/creatinine ratio, serum NOT APPLICABLE (calc) LinkLogic 6-22 Estimated Glomerular Filtration Rate (calc) 126 mL/min/{1.73_ m2} LinkLogic > OR = 60 Normal creatinine, serum 0.64 mg/dL [facility]ic 0.50-1.10 Normal urea nitrogen, blood 15 mg/dL [facility]ic 7-25 Normal blood glucose, random 105 mg/dL [facility] 65-139 Normal pro brain natriuretic peptide 209 pg/mL [facility]ic 0-130 High basophil count, absolute 0.0 x10E3/uL [facility]ic 0.0-0.2 Eosinophil Absolute Count 0.1 X10E3/UL [facility] 0.0-0.4 monocyte count, blood, automated 0.9 X10E3/UL [facility] 0.1-0.9 lymphocyte count, blood, automated 1.9 X10E3/UL [facility] 0.7-3.1 Absolute Neutrophils 8.1 X10E3/UL [facility] 1.4-7.0 High basophils as percent of blood leukocytes 0 % LinkLogic Not Estab. eosinophils as percent of blood leukocytes 1 % LinkLogic Not Estab. monocytes as percent of blood leukocytes 9 % [facility]ic Not Estab. lymphocytes as percent of blood leukocytes 17 % LinkLogic Not Estab. neutrophils as percent of blood leukocytes 73 % [facility]ic Not Estab. platelet count 233 X10E3/UL [facility] 270-118 5598/12 /01 red blood cell distribution width 16.5 % [facility] 12.3-15.4 High mean corpuscular hemoglobin concentration, RBC 31.5 G/DL [facility]ic 31.5-35.7 mean corpuscular hemoglobin, RBC 24.3 pg [facility]Logic 26.6-33.0 Low mean corpuscular volume, RBC 77 fL LinkLogic 79-97 Low hematocrit, blood 36.2 % LinkLogic 34.0-46.6 hemoglobin, blood 11.4 g/dL LinkLogic 11.1-15.9 erythrocyte (RBC) count 4.70 X10E6/UL LinkLogic 3.77-5.28 leukocyte count, blood 11.0 X10E3/UL LinkLogic 3.4-10.8 High HISTORY OF MEDICATION USE Medication Status Instructions Dates Provider Indications Com dez hydrochlorothiaz trevor 25 mg tablet completed TAKE 1 TABLET BY MOUTH EVERY DAY 07/22 - 11/01 Declan Dulce Marianathalia magnesium oxide 400 mg (241.3 mg magnesium) tablet active TAKE 1 TABLET BY MOUTH TWICE A DAY 10/11 Yesi Unger magnesium oxide 400 mg (241.3 mg magnesium) tablet completed Take 1 tablet by mouth twice a day TAKE 1 TABLET BY MOUTH TWICE A DAY 07/26 - 10/11 Karley Hurst hydrochlorothiaz trevor 12.5 mg tablet completed TAKE 1 TABLET BY MOUTH EVERY DAY 05/14 - 07/22 Yesi Dunnaughlin magnesium oxide 400 mg (241.3 mg magnesium) tablet completed Take 1 tablet by mouth twice a day TAKE 1 TABLET BY MOUTH TWICE A DAY 04/15 - 04/13 María Riverer magnesium oxide 400 mg (241.3 mg magnesium) tablet completed TAKE 1 TABLET BY MOUTH TWICE A DAY 11/21 - 04/15 Briseida Hall Patient needs appointment for further refills//EB 11/21/20 bupropion HCl 100 mg tablet sustained-releas e 12 hr active 1 tablet by mouth twice a day 03/20 Brian Dominguez dx is depression OZEMPIC (0.25 OR 0.5 MG/DOSE) 2 MG/1.5ML SUBCUTANEOUS SOLUTION PEN-INJECTOR completed inject 0.25mg subcutaneously once weekly x4 weeks, then increase to 0.5mg subcutaneously weekly reduces risk of major CV events 03/20 - 03/20 Brian Dominguez magnesium oxide 400 mg (241.3 mg magnesium) tablet completed 1 tablet by mouth twice a day 08/03 - 11/21 Briseida Hall hydrochlorothiaz trevor 25 mg tablet completed 1 tablet by mouth once a day 08/03 - 05/14 Godwin Blanca VITAMIN D3 2000 UNIT ORAL TABLET completed take 1 tablet daily 04/09 - 07/16 Alethea Omer CBD TINCTURE 550MG completed 7-10 drops sublingually twice daily 04/09 - 08/03 Megan Go XARELTO 20 MG ORAL TABLET completed One tab. daily with evening meal 04/17 - 05/01 Edna Clarke MD XARELTO 15 MG ORAL TABLET completed one tablet twice daily for three weeks, then start Xarelto 20mg once daily 04/17 - 03/12 Kiran Wolfe BLOOD BUILDER completed once daily - 07/16 Alethea Omer VITAMIN D3 1000 UNIT ORAL TABLET completed ONE TAB BY MOUTH DAILY - 04/09 Kiran Wolfe GARLIC TABLET completed once daily - 08/03 Megan Go Nexium 20 mg capsule,delayed release(DR/EC) active 1 tablet by mouth once a day Godwin Blanca carvedilol 3.125 mg tablet active TAKE 1 TABLET BY MOUTH TWICE A DAY 08/21 Justinetootie Man VENTOLIN HFA 108 (90 BASE) MCG/ACT INHALATION AEROSOL SOLUTION completed 2 puffs every 4-6 hours 04/01 - 11/21 Godwin Blanca AZITHROMYCIN 250 MG ORAL TABLET completed 2 pills on day one and 1 a day after till gone 04/01 - 11/21 Godwin Blanca lorazepam 2 mg tablet active 1 tablet by mouth every night Godwin Blanca hydrocodone-acet aminophen 7.5-325 mg tablet active 0.5 as needed 04/01 María Bonds PREDNISONE 20 MG ORAL TABLET completed take 2 pills a day for 5 days 04/01 - 11/21 Godwin Blanca SOCIAL HISTORY Date Observation Value Provider smoking, year quit 2015 Declan alonso number of years as a smoker 25 a Declan Ocampo smoking history, tot al pack/day 1.5 Declan Ocampo cigarette use yes Declan Ocampo smoking status Former smoker Declan العراقيza i smoking status Former smoker Marissa kerr smoking, year quit 2015 Marissa Dorsey number of years as a smoker 25 a Marissa Dorsey smoking history, tot al pack/day 1.5 Marissa Dorsey cigarette use yes Marissa Heard nd social history reviewed E&M revi ewed - no changes required Declan Hardymedzai social history reviewed E&M revi ewed - no changes required Declan العراقيzaxiao social history reviewed E&M revi ewed - no changes required Rox Anaya social history E&M S moking History: P atient is a former smoker. Brian Dominguez social history reviewed E&M revi ewed - no changes required Brian Dominguez smoking, year quit 2015 María Yuridia donohue number of years as a smoker 25 a María Cammie smoking history, tot al pack/day 1.5 Maríayogi Bonds cigarette use yes María Denneysurysaulchelsea ramirez smoking status Former smoker María Denneyrosie michaels smoking, year quit 2015 Rox Block number of years as a smoker 25 a Rox Block smoking history, tot al pack/day 1.5 Rox Block cigarette use yes Rox Block smoking status Former smoker Rox Blo ck social history E&M S moking History: P atient is a former smoker. Brian Dominguez social history reviewed E&M revi ewed - no changes required Brian Dominguez smoking, year quit 2016 Megan Martinez sby number of years as a smoker 25 a Megan Donavan smoking history, tot al pack/day 1.5 Megan Donavan cigarette use yes Megan [place] smoking status Former smoker Megan [place] social history reviewed E&M revi ewed - no changes required Sam Kaminski smoking, year quit 2015 Megan Martinez sby number of years as a smoker 25 a Megan [place] smoking history, tot al pack/day 1.5 Megan [place] cigarette use yes Megan [place] smoking status Former smoker Megan Cramerby social history E&M S moking History: P atient is a former smoker. Edna Clarke MD social history reviewed E&M revi ewed - no changes required Edna Clarke MD number of grandchildren Edna Clarke MD [facility] smoking, year quit 2015 [facility] number of years as a smoker 25 a [facility] smoking history, tot al pack/day 1.5 [facility] cigarette use yes [facility] smoking status Former smoker [facility] smoking, year quit 2015 Edna diallo MD number of years as a smoker 25 a Edna Clarke MD smoking history, tot al pack/day 1.5 Edna Clarke MD cigarette use yes Edna child MD smoking status Former smoker Edna menendez MD social history reviewed E&M revi ewed - no changes required Edna Clarke MD social history E&M S moking History: P atbarbie is a former smoker. Edna Clarke MD social history reviewed E&M revi ewed - no changes required Edna Clarke MD smoking, year quit 2015 Godwin Blanca number of years as a smoker 25 a Godwin Blanca smoking history, tot al pack/day 1.5 Godwin Blanca cigarette use yes Godwin fatima smoking status Former smoker Godwin Arana quit smoking, stage quit Edna Clarke MD social history reviewed E&M revi ewed - no changes required Edna Clarke MD social history E&M Smoking Histo ry: Gabrielle hardy is a former smoker. Edna Clarke MD number of years as a smoker 25 a María Cammie smoking history, tot al pack/day 1.5 Edna Clarke MD smoking, year quit 2015 María Shi charanjit cigarette use yes María Denneyrosiechelsea ashley smoking status Former smoker María Denneyrosie ruvalcaba FAMILY HISTORY Family Member Condition Mother Family History of Ao rtic Aneurysm: Mother Negative FH of Coron pete Artery Disease Father Family History of Hy pertension: INSURANCE PROVIDERS Payer name Policy type / Coverage type [place] [employer] party ID [employer] [facility] Other [id number] ADVANCE DIRECTIVES Name Date DISCUSSED - NO DECISION MADE TREATMENT PLAN Date Name Performer [id number],C, A symptomatic currently Declan Ocampo [id number],C,I reviewed the importance of lifestyle and dietary modification with the patient. Recommend she reduce sodium consumption S he is taking her Coreg once daily at this time W ill enroll in RPM to monitor her BP BP today: 148/92 P rior BP: 136/82 (05/17/2022) Labs Reviewed: C reat: 0.64 (06/21/2017) Declan Ocampo [id number],C,L ast holter in May 2022 showed S inus rhythm with rare ventricular ectopy and rare supraventricular ectopy. The a verage heart rate was 62 bpm with a minimum heart rate of 40 bpm and a m aximum heart rate of 103 bpm. VE burden was 0.11% and observed as 414 i solated beats. SVE burden was <0.1% and observed as 149 isolated beats. Will check up to date holter for now Declan Ocampo [id number],C, T he patient is using CPAP on a regular basis. The patient has been benefiting from therapy and should continue use. Declan Ocampo [id number],B, Declan Howard i [id number],C,I mproved, recommend she cut back on her HCTZ as needed if she does not have consistent swelling . Declan Ocampo [id number],C,S he is here today as she was alerted by her watch that her HR was in the 40s-50s. She was scared by this and started to have anxiety attack. She is currently wearing a holter. She is asymptomatic when her HR is in this range. I assured her this is okay if she is asymptomatic. Will review her holter once results are available. Declan Ocampo [id number],C, B P today: 136/82 P rior BP: 110/66 (05/08/2022) Labs Reviewed: C reat: 0.64 (06/21/2017) Declan Ocampo [id number],C, H aving anxiety from the stressors in her life. Declan Ocampo [id number],C,Asymptomatic currently Declan Ocampo [id number],C, T he patient is using CPAP on a regular basis. The patient has been benefiting from therapy and should continue use. Declan Ocampo [id number],C, W eightt loss, regular exercise encouraged. Dietary carb reduction encouraged. S/P bariatric surgery Rox Benn[place]ota [id number],C,B P is low, will decrease her Coreg to 3.125 mg BID and HCTZ to 12.5 mg once a day B P today: 110/66 P rior BP: 140/80 (06/20/2021) Labs Reviewed: C reat: 0.64 (06/21/2017) Her updated medication list for this problem includes: Carvedilol 3.125 Mg Tablet (Carvedilol) ..... Take 1 tablet by mouth twice a day Hydrochlorothiazide 12.5 Mg Tablet (Hydrochlorothiazide) ..... Take 1 tablet by mouth every day Rox Jaclyn [id number],C, H aving anxiety from the stressors in her life. Will obtain telemonitor to assess for arrhythmias. Rox Anaya [id number],SBrian [id number],S, H er updated medication list for this problem includes: Hydrochlorothiazide 25 Mg Tablet (Hydrochlorothiazide) ..... Take 1 tablet by mouth every day Carvedilol 6.25 Mg Tablet (Carvedilol) ..... Take 1 tablet by mouth twice a day Brian Dominguez [id number],S, B P today: 140/80 P rior BP: 122/80 (02/09/2020) Her updated medication list for this problem includes: Hydrochlorothiazide 25 Mg Tablet (Hydrochlorothiazide) ..... Take 1 tablet by mouth every day Carvedilol 6.25 Mg Tablet (Carvedilol) ..... Take 1 tablet by mouth twice a day Brian Dominguez [id number],S, T he patient is using CPAP on a regular basis. The patient has been benefiting from therapy and should continue use. Brian Dominguez Electrophysiology:Uriel rankin has acceptable risk and can proceed with their knee surgery. 11/2022 CONCLUSIONS: 1 . There is septal hypertrophy without outflow tract obstruction. Normal left ventricular systolic function. Normal left v entricular size. Mitral inflow Doppler demonstrates pseudonormal pattern consistent with diastolic dysfunction. E/E': 6.8 L eft ventricular ejection fraction is measured at 60 %. 2 . The tricuspid valve is normal in appearance and function. There is mild tricuspid regurgitation. IVC is normal in size with n ormal respiratory response. The RA pressure is estimated at 5.0 mmHg Estimated peak pulmonary artery systolic pressure is 3 0.0 mmHg. [facility]iology [facility] Electrophysiology: T he patient is using CPAP on a regular basis. The patient has been benefiting from therapy and should continue use. [facility] Electrophysiology: A symptomatic currently [facility] Electrophysiology: B P today: 130/80 P rior BP: 142/86 (05/09/2023) Labs Reviewed: C reat: 0.64 (06/21/2017) Her updated medication list for this problem includes: Carvedilol 3.125 Mg Tablet (Carvedilol) ..... Take 1 tablet by mouth twice a day [facility] Electrophysiology: T he patient is using CPAP on a regular basis. The patient has been benefiting from therapy and should continue use. [facility] Electrophysiology:no swelling at this time [facility] Electrophysiology:wi ll check venous duplex for her new found swollen area behind R knee [facility] Electrophysiology [facility] Electrophysiology: B P today: 142/86 P rior BP: 148/92 (11/01/2022) Labs Reviewed: C reat: 0.64 (06/21/2017) Her updated medication list for this problem includes: Carvedilol 3.125 Mg Tablet (Carvedilol) ..... Take 1 tablet by mouth twice a day [facility]: A symptomatic currently [facility] Electrophysiology: A symptomatic currently [facility] Electrophysiology:I reviewed the importance of lifestyle and dietary modification with the patient. Recommend she reduce sodium consumption S he is taking her Coreg once daily at this time W ill enroll in RPM to monitor her BP BP today: 148/92 P rior BP: 136/82 (05/17/2022) Labs Reviewed: C reat: 0.64 (06/21/2017) Declan Howardxiao Electrophysiology:La st holter in May 2022 showed S inus rhythm with rare ventricular ectopy and rare supraventricular ectopy. The a verage heart rate was 62 bpm with a minimum heart rate of 40 bpm and a m aximum heart rate of 103 bpm. VE burden was 0.11% and observed as 414 i solated beats. SVE burden was <0.1% and observed as 149 isolated beats. Will check up to date holter for now Declan Howardxiao Electrophysiology: T he patient is using CPAP on a regular basis. The patient has been benefiting from therapy and should continue use. Declan shoshananathalia Electrophysiology [facility] Electrophysiology:Im proved, recommend she cut back on her HCTZ as needed if she does not have consistent swelling . Declan shoshananathalia Electrophysiology:Anthony west is here today as she was alerted by her watch that her HR was in the 40s-50s. She was scared by this and started to have anxiety attack. She is currently wearing a holter. She is asymptomatic when her HR is in this range. I assured her this is okay if she is asymptomatic. Will review her holter once results are available. Declan tracexiao Electrophysiology: B P today: 136/82 P rior BP: 110/66 (05/08/2022) Labs Reviewed: C reat: 0.64 (06/21/2017) Declan Anitaxiao Electrophysiology: H aving anxiety from the stressors in her life. Declan shoshananathalia Electrophysiology:Asymptomatic c urrently Declan shoshananathalia Electrophysiology: T he patient is using CPAP on a regular basis. The patient has been benefiting from therapy and should continue use. Declan shoshananathalia Electrophysiology: W eightt loss, regular exercise encouraged. Dietary carb reduction encouraged. S/P bariatric surgery Rox Anaya Electrophysiology:BP is low, will decrease her Coreg to 3.125 mg BID and HCTZ to 12.5 mg once a day B P today: 110/66 P rior BP: 140/80 (06/20/2021) Labs Reviewed: C reat: 0.64 (06/21/2017) Her updated medication list for this problem includes: Carvedilol 3.125 Mg Tablet (Carvedilol) ..... Take 1 tablet by mouth twice a day Hydrochlorothiazide 12.5 Mg Tablet (Hydrochlorothiazide) ..... Take 1 tablet by mouth every day Rox Jaclyn Electrophysiology: H aving anxiety from the stressors in her life. Will obtain telemonitor to assess for arrhythmias. Rox Anaya Electrophysiology Brian Dominguez Electrophysiology: H er updated medication list for this problem includes: Hydrochlorothiazide 25 Mg Tablet (Hydrochlorothiazide) ..... Take 1 tablet by mouth every day Carvedilol 6.25 Mg Tablet (Carvedilol) ..... Take 1 tablet by mouth twice a day Brian Dominguez Electrophysiology: B P today: 140/80 P rior BP: 122/80 (02/09/2020) Her updated medication list for this problem includes: Hydrochlorothiazide 25 Mg Tablet (Hydrochlorothiazide) ..... Take 1 tablet by mouth every day Carvedilol 6.25 Mg Tablet (Carvedilol) ..... Take 1 tablet by mouth twice a day Brian Dominguez Electrophysiology: T he patient is using CPAP on a regular basis. The patient has been benefiting from therapy and should continue use. Brian Dominguez Electrophysiology:le ft calf pain and swelling Orders: 9 9213 LTD. Complex (CPT-40412) Edna Clarke MD Electrophysiology:le ft calf pain and swelling Orders: E KG (CPT-16493) 9 9213 LTD. Complex (CPT-85266) S chedule Followup (*) V enous Doppler Unilateral LLE (CPT-65696) Edna Clarke MD Cardiology:Weightt l oss, regular exercise encouraged. Dietary carb reduction encouraged. Brian Dominguez Cardiology:Start oze mpic for weight loss. Dietary carb reduction encouraged. Brian Pending [facility] To [facility] Cardiology:No DVT no duane on most recent venous US from July 2017. Not currently on anti-coagulation. Only trace edea ppreciated on exam. No indication for repeat US at this time. Brian [facility] Cardiology:No signif icant valvular pathology noted on echo from August 2019. Brian [facility] Cardiology:Reinforce d importance of low sodium diet. B P today: 140/90 P rior BP: 140/70 (08/04/2019) Her updated medication list for this problem includes: Hydrochlorothiazide 25 Mg Oral Tablet (Hydrochlorothiazide) ..... One tab daily Carvedilol 6.25 Mg Tablet (Carvedilol) ..... Take 1 tablet by mouth twice a day Brian [facility] Cardiology: H er updated medication list for this problem includes: Hydrochlorothiazide 25 Mg Oral Tablet (Hydrochlorothiazide) ..... One tab daily Carvedilol 6.25 Mg Tablet (Carvedilol) ..... Take 1 tablet by mouth twice a day Brian [facility] Cardiology:The patie nt is using CPAP on a regular basis. The patient has been benefiting from therapy and should continue use. Brian [facility] Electrophysiology:If BP continues to stay high, may consider adding MACKENZIE inhibitor at night. B P today: 140/70 P rior BP: 128/82 (07/16/2017) Labs Reviewed: C reat: 0.64 (06/21/2017) Her updated medication list for this problem includes: Hydrochlorothiazide 25 Mg Oral Tablet (Hydrochlorothiazide) ..... One tab daily Carvedilol 6.25 Mg Tablet (Carvedilol) ..... Take 1 tablet by mouth twice a day Sam Kaminski Electrophysiology Sam Kaminski Electrophysiology Sam Kaminski Electrophysiology: H er updated medication list for this problem includes: Carvedilol 6.25 Mg Tablet (Carvedilol) ..... Take 1 tablet by mouth twice a day Sam Kaminski Electrophysiology:Di scussed importance of regular exercise and recommended starting or continuing a regular exercise program for good health. T he patient was encouraged to lose weight for better health. E ncourge increased water intake. L imit sugar in diet. Gordy Lorena Electrophysiology:Re peat echo in 1 year. O rders: 9 9213 LTD. Complex (CPT-45120) S chedule Followup (*) C omplete Echo (CPT-77933) Her updated medication list for this problem includes: Coreg 6.25 Mg Oral Tablet (Carvedilol) ..... One tab. twice daily Gordy Carrillo Electrophysiology Edna child MD Electrophysiology Edna child MD Electrophysiology: O rders: 9 9213 LTD. Complex (CPT-29961) S chedule Followup (*) C omplete Echo (CPT-70663) Her updated medication list for this problem includes: Coreg 6.25 Mg Oral Tablet (Carvedilol) ..... One tab. twice daily Edna Clarke MD Electrophysiology: O rders: 9 9213 LTD. Complex (CPT-46108) S chedule Followup (*) Edna Clarke MD Electrophysiology: H er updated medication list for this problem includes: Coreg 6.25 Mg Oral Tablet (Carvedilol) ..... One tab. twice daily Edna Clarke MD Electrophysiology: O rders: E KG (CPT-68494) S chedule Followup (*) Edna Clarke MD Electrophysiology Edna child MD Electrophysiology:Th e patient is using CPAP on a regular basis. The patient has been benefiting from therapy and should continue use. Edna Clarke MD Electrophysiology: B P today: 138/96 P rior BP: 140/100 (03/12/2017) Edna Clarke MD Electrophysiology:No evidence of DVT in most recent MARGE. WIll have standing venous doppler done in 3 months. Edna Clarke MD Electrophysiology Edna child MD Electrophysiology: B P today: 140/100 P rior BP: 141/94 (02/14/2017) Edna Clarke MD Electrophysiology:Th e patient is using CPAP on a regular basis. The patient has been benefiting from therapy and should continue use. Edna Clarke MD Electrophysiology Edna child MD Electrophysiology Edna child MD Cardiology:Patient h as confirmed DVT in left lower extremity below knee. Pt complains of sob and fatigue. Reccomend CT to asses possible PE and PFT to asses diffusion capacity., B P today: 141/94 P rior BP: 162/100 (01/30/2017) Edna Clarke MD Cardiology:Patient h as confirmed DVT in left lower extremity below knee. Pt complains of sob and fatigue. Reccomend CT to asses possible PE and PFT to asses diffusion capacity., Her updated medication list for this problem includes: Coreg 3.125 Mg Oral Tablet (Carvedilol) ..... One tab. twice daily Orders: 9 9213 LTD. Complex (CPT-06645) C T Chest w/ contrast (CPT-15590) Edna Clarke MD Cardiology:Her D Dim er is elevated. Patient has confirmed DVT in left lower extremity below knee. Pt complains of sob and fatigue. Reccomend CT to asses possible PE and PFT to asses diffusion capacity., Will start her on Xarelto. Orders: V enous Doppler Unilateral LLE (14118) Edna Clarke MD Cardiology: B P today: 141/94 P rior BP: 162/100 (01/30/2017) Edna Clarke MD Cardiology:Her D Dim er is elevated. Venous doppler results showed DVT. Will start her on Xarelto. Orders: V enous Doppler Unilateral LLE (56541) Edna Clarke MD Cardiology: H er updated medication list for this problem includes: Coreg 3.125 Mg Oral Tablet (Carvedilol) ..... One tab. twice daily Orders: 9 9213 LTD. Complex (CPT-16998) C T Chest w/ contrast (CPT-24824) Edna Clarke MD Electrophysiology New Patient fa xed 12-4, lo:On CPAP. Edna Clarke MD Electrophysiology Ne w Patient faxed 12-4, lo:Quit a year ago. Edna Clarke MD Electrophysiology Ne w Patient faxed 12-4, lo:BP today: 162/100 Orders: R enal Artery Duplex (CPT-18598) Edna Clarke MD Electrophysiology Ne w Patient faxed 12-4, lo:Will check echo. Edna Clarke MD Electrophysiology Ne w Patient faxed 12-4, lo:Will check echo. Edna Clarke MD Electrophysiology Ne w Patient faxed 12-4, lo:Recently had knee surgery. Will check proBNP, DDimer, echo. Edna Clarke MD Date Name Monitor - Telemetry (Mobile Cardiac) Venous Doppler Bilat eral LE RPM (remote patient monitoring) PROBNP, N TERMINAL TSH, free T4, total T3 CBC (INCLUDES DIFF/P LT) HEMOGLOBIN A1c LIPID PANEL COMPREHENSIVE METABO LIC PANEL, W/EGFR Holter Monitor 48 hr Complete Echo Monitor - Telemetry (Mobile Cardiac) Complete Echo Complete Echo Venous Doppler Unila teral LLE TSH, free T4, total T3 CBC (H/H, RBC, INDIC ES, WBC, PLT) LIPID PANEL COMPREHENSIVE METABO LIC PANEL, W/EGFR Complete Echo Complete Echo Venous Doppler Bilat eral LE - Reflux Other COMPREHENSIVE METABO LIC PANEL, W/EGFR Venous Doppler Bilat eral LE - Reflux Venous Doppler Unila teral LLE DLCO - 15987 FRC - 95048 FVC - 88149 Venous Doppler Unila teral [address] CT Chest w/ contrast DLCO - 37110 FRC - 51389 FVC - 11686 Renal Artery Duplex Complete Echo PROBNP, N TERMINAL D-DIMER, QUANTITATIV E CBC (INCLUDES DIFF/P LT) HISTORY OF PROCEDURES Procedure Date Procedure Name Provider Procedure Notes S tatus EKG Edna borden MD completed EKG Edna borden MD completed EKG Edna borden MD completed EKG Edna borden MD completed EKG Edna borden MD completed Schedule Followup Edna child MD fu in 3 months completed EKG Edna borden MD completed EKG Edna borden MD completed EKG Edna borden MD completed Schedule Followup Edna child MD 1 year follow up completed EKG Edna borden MD completed EKG Edna borden MD completed SNOMED-CT: 279075873473116 Current Medications Documented Edna Clarke MD completed FVC / MVV with bronchodilator - 78047 Edna Clarke MD completed FRC - 29928 Edna borden MD completed SpO2 - 33082 Edna borden MD completed DLCO - 33702 Edna borden MD completed EKG Edna borden MD completed SNOMED-CT: [id number] Current Medications Documented Saulius Kalvaitis completed EKG ulius Ivette borden MD completed SNOMED-CT: [id number] Current Medications Documented ulius Kalvaitis completed EKG ulius Ivette borden MD completed SNOMED-CT: [id number] Current Medications Documented ulius Kalmarinaitis completed
--- OUTSIDE RECORDS SUMMARY | 2024-08-05 23:18 | XMS_ITS | Patient Health Record ---
Author Organization [facility] As sMedio Address [address] [facility] [address] [place] [address] Care Team Providers Care Electronic Calibration Technician Name Role Phone Laureen CARRERA, Tru Primary Care Provider Un available Adryan Langford Unavailable [phone] Miguel Calles Unavailable [phone] Allergies Allergen (clinical drug ingredient) Drug/Non Drug Allergy documented on EMR Reaction Allergy Type Onset Date Status ciprofloxacin Cipro Unknown Drug Allergy Act kayla amoxicillin Amoxicillin Unknown Drug Allergy Act kayla Penicillin Unknown Drug Allergy Active Results Component Value Reference Range Notes NEED PHYSICIAN SIGNATURE Reviewed date:06/14/2024 05:10:15 PM Interpretation: Performing Lab: Notes/Report: Benzodiazepines Reviewed date:06/14/2024 05:10:15 PM Interpretation: Performing Lab:[address] [place] [address], [address] [place] [address], Director - [id number] Notes/Report: An exception occurred while processing this report and so it has incomplete data. Please contact [employer] ([employer]) Support for assistance. Not Medicated Consistent Not Medicated Consistent Not Medicated Consistent Not Medicated Consistent Not Medicated Consistent Medicated Consistent Not Medicated Consistent Not Medicated Consistent Not Medicated Consistent Not Medicated Consistent 7-Aminoclonazepam NEGATIVE 20.0 ng/mL Temazepam NEGATIVE 40.0 ng/mL Oxazepam NEGATIVE 40.0 ng/mL Midazolam NEGATIVE 40.0 ng/mL Lorazepam 415.6 40.0 ng/mL Nordiazepam NEGATIVE 40.0 ng/mL Diazepam NEGATIVE 40.0 ng/mL Clonazepam NEGATIVE 20.0 ng/mL Hydroxyalprazolam NEGATIVE 20.0 ng/mL Alprazolam NEGATIVE 20.0 ng/mL PDF Report CE_OUT_RAW_COMMON _SRC_ORU UDT Reviewed date:04/01/2024 11:57:43 AM Interpretation: Performing Lab: Notes/Report: THC N 0 - 50 ng/ml Cocaine N 0 - 300 ng/ml Amphetamine N 0 - 1000 ng/ml Buprenorphine (BUP) N 0 - 10 ng/ml Secobarbital (Bar) N 0 - 300 ng/ml Oxazepam (BZO) P 0 - 300 ng/ml 6-exdrojbfcn-2,0-pdlglvyt-3, 3-diph enylpyrrolidine (EDDP) N 0 - 300 ng/ml Methamphetamine (MET) N 0 - 1000 ng/ml Methylenedioxymethamphetamin e (MDMA) N 0 - 500 ng/ml Morphine (MOP 300/TCI7536) N 0 - 300 ng/ml Methadone (MTD) N 0 - 300 ng/ml Phencyclidine (PCP) N 0 - 25 ng/ml Nortriptyline (TCA) N 0 - 1000 ng/ml Oxycodone N 0 - 300 ng/ml x N 0 - 300 ng/ml PRESCRIBED DRUGS, medMATCH(R ) ([id number]) Reviewed date:04/06/2024 10:13:25 AM Interpretation: Performing Lab:[facility][id number] Rabia Suzie [id number] Jenaro Viramontes MD Notes/Report: FASTING: NO medMATCH Summary Prescribed Prescribed Not Prescribed Consistent Inconsistent Inconsistent Lorazepam DRUG MONITOR, DIANDRA, PatriceN, NATHAN NE ([id number]) Reviewed date:04/06/2024 10:13:15 AM Interpretation: Performing Lab:[place] [facility] Jonelle-Vinny [id number] [facility] Centerthomas, Vinny [id number] Samson Cuevas, Director - [id number] [facility] Notes/Report: FASTING: NO Alphahydroxyalprazolam NEGATIVE <25 ng/mL Alphahydroxymidazolam NEGATIVE <50 ng/mL Alphahydroxytriazolam NEGATIVE <50 ng/mL Aminoclonazepam NEGATIVE <25 ng/mL Hydroxyethylflurazepam NEGATIVE <50 ng/mL Lorazepam 585 <50 ng/mL medMATCH Lorazepam INCONSISTENT Nordiazepam NEGATIVE <50 ng/mL Oxazepam NEGATIVE <50 ng/mL Temazepam NEGATIVE <50 ng/mL Benzodiazepines Comments See Benzodiazepines Notes, LDT Notes Notes and Comments This drug testing is for medical treatment only. Analysis was performed as non-forensic testing and these results should be used only by healthcare providers to render diagnosis or treatment, or to monitor progress of medical conditions. Benzodiazepines Notes: Lorazepam detected is consistent with the use of the drug Lorazepam. LDT Notes: Confirmation tests were developed and their analytical performance characteristics have been determined by [facility]. It has not been cleared or approved by the FDA. This assay has been validated pursuant to the CLIA regulations and is used for clinical purposes. medMATCH(R) enables providers to identify if drug use is consistent or inconsistent with a corresponding prescribed medication(s) list. Healthcare Providers needing Interpretation assistance, please contact us at [phone] ( ) M-F, 8am to 10pm EST UDT Reviewed date:06/08/2024 04:47:19 PM Interpretation: Performing Lab: Notes/Report: THC N 0 - 50 ng/ml Cocaine N 0 - 300 ng/ml Amphetamine N 0 - 1000 ng/ml Buprenorphine (BUP) N 0 - 10 ng/ml Secobarbital (Bar) N 0 - 300 ng/ml Oxazepam (BZO) P 0 - 300 ng/ml 3-orclmjzmnr-3,1-kxnulaeq-6, 3-diph enylpyrrolidine (EDDP) N 0 - 300 ng/ml Methamphetamine (MET) N 0 - 1000 ng/ml Methylenedioxymethamphetamin e (MDMA) N 0 - 500 ng/ml Morphine (MOP 300/WSR8859) N 0 - 300 ng/ml Methadone (MTD) N 0 - 300 ng/ml Phencyclidine (PCP) N 0 - 25 ng/ml Nortriptyline (TCA) N 0 - 1000 ng/ml Oxycodone N 0 - 300 ng/ml x N 0 - 300 ng/ml Reason For Referral No Information Medications Medication SIG (Take, Route, Frequency, Duration) Notes Start Date End Date Status Calcium Active Magnesium Active Multivitamin Active Probiotic Active Vitamin D2 + K1 Acti ve Cyanocobalamin 1000 MCG/ML INJECT 1 CC INTRAMUSCULARLY ONCE A MONTH Injection for 90 Days Active Nicotinamide Active LORazepam 1 MG 1.5 tablet every nig ht Oral Once a day for 30 days plan is to slowly taper her off of lorazepam 06/07/2024 Active Carvedilol 3.125 MG 1 tablet with food Oral daily for 90 days Active hydrOXYzine Pamoate 25 MG 1 capsule at bedtime as needed Orally three times a day As needed 04/01/2024 Active hydrOXYzine Pamoate 25 MG 1 capsule Orally Once a day for 30 days As needed Active Social History Tobacco Use: Social History Observation Description Date Details (start date - stop date) Former Smoker 03/07/1985 - 02/27/2014 Sex Assigned At : Social History Observation Description Sex Assigned At Female Tobacco Control (Standard) Question Answer Notes Tobacco use: Former smoker When did you start smoking? 03/07/1985 When did you stop smoking? 02/27/2014 How long has it been since you last smoked? 5-10 years AUDIT-C (Standard) Question Answer Notes Did you have a drink contain ing alcohol in the past year? Yes How often did you have six o r more drinks on one occasion in the past year? Never (0 point) How many drinks did you have on a typical day when you were drinking in the past year? 1 or 2 drinks (0 point) How often did you have a dri nk containing alcohol in the past year? Monthly or less (1 point) Problems Problem Type SNOMED Code ICD Code Onset Dates Problem Status W/U Status Risk Notes Problem 62330507 ASHLEY (generalized anxiety disorder) (F41.1) Active confirmed Problem Hypertension (I10) 02/11/2020 Active confirmed Vital Signs Heart Rate 60 /min 06/07/2024 Blood pressure diastolic 83 mm Hg 06/07/2024 Weight-kg 109.77 kg 06/07/2024 Blood pressure systolic 120 mm Hg 06/07/2024 Weight 242 lbs 06/07/2024 Encounters Encounter Location Date Provider Diagnosis [facility] [address] [facility] [address] [place] [address] 04/01/2024 Miguel Calles ASHLEY (generalized anxiety disorder) F41.1 MXP4 [address] [facility] [address] [place] [address] 04/12/2024 Adryan Langford ASHLEY (generalized anxiety disorder) F41.1 and Hypertension I10 MXP4 [address] [facility] [address] [place] [address] 06/07/2024 Adryan Langford Encounter for screen ing for depression Z13.31 ; Encounter for screening for cardiovascular disorders Z13.6 ; ASHLEY (generalized anxiety disorder) F41.1 and Hypertension I10 Assessments Encounter Date Diagnosis (ICD Code) Assessment Notes Treatment Notes Treatment Clinical Notes Section Notes 06/07/2024 Encounter for screening for depression (ICD-10 - Z13.31) 04/12/2024 ASHLEY (generalized anxiety disorder) (ICD-10 - F41.1) 04/12/2024 Hypertension (ICD-10 - I10) 04/01/2024 ASHLEY (generalized anxiety disorder) (ICD-10 - F41.1) 06/07/2024 Encounter for screening for cardiovascular disorders (ICD-10 - Z13.6) 06/07/2024 ASHLEY (generalized anxiety disorder) (ICD-10 - F41.1) 06/07/2024 Hypertension (ICD-10 - I10) 04/01/2024 Other Learning About Depression Screening material was printed 1. Anxiety disorder - Plan: a. Continue lorazepam as prescribed, with a plan to taper off gradually over time. b. Consider adding propranolol for situational anxiety, as needed. c. Schedule follow-up appointment with a mental health provider within the next 2 weeks. d. Encourage continued therapy for anxiety management, addressing health anxiety concerns. 2. Insomnia - Plan: a. Trial of hydroxyzine 25 mg at bedtime, starting with a half tablet. b. Encourage non-pharmacologic al sleep hygiene measures: - Relaxation techniques - Magnesium and lavender oil - Maintaining a consistent sleep schedule 3. Hypertension - Plan: a. Continue current blood pressure medication as prescribed. b. Monitor blood pressure regularly and report any significant changes. 4. Asthma - Plan: a. Ensure patient has a rescue inhaler and is using it as needed. b. Encourage regular follow-up with primary care provider for asthma management. 5. History of bariatric surgery and complications - Plan: Encourage regular follow-up with primary care provider and bariatric surgeon for ongoing monitoring and management. 6. Vitamin and supplement use - Plan: Continue vitamin B injections, probiotic, vitamin D3, calcium, and magnesium as currently prescribed. 7. Health anxiety - Plan: a. Address health anxiety concerns during therapy sessions and follow-up appointments with mental health provider. b. Encourage patient to discuss any new or worsening symptoms with their primary care provider. 8. Urine drug screening - Plan: a. Obtain a urine sample to confirm lorazepam levels and ensure appropriate use. b. Address any discrepancies or concerns with the patient during follow-up appointments. 04/12/2024 Other Learning About Depression Screening material was printed Anxiety Disorder - Assessment: Patient has a history of anxiety related to her children's health issues and previous experiences with antidepressants. - Plan: - Continue lorazepam 2 mg once a day at bedtime. - Gradually taper lorazepam over the next several months, decreasing the dose by 0.5 mg every 2-3 months. - Encourage the use of coping mechanisms and therapy with Jeannie Knutson, a holistic counselor. - Follow up in 2 months to assess progress and adjust the treatment plan as needed. Insomnia - Assessment: Patient experiences insomnia and may face rebound insomnia during lorazepam tapering. - Plan: - Continue hydroxyzine at bedtime as needed for sleep. - Address rebound insomnia during the tapering process of lorazepam with the assistance of the therapist. - Educate the patient about the potential for rebound insomnia and the importance of a slow taper. Health Anxiety - Assessment: Patient expresses concerns about hereditary health issues. - Plan: - Encourage the patient to discuss hereditary concerns with primary care physician, Dr. Zhen Lloyd, and electric gas appliances demonstrator. - Reinforce the importance of therapy and coping mechanisms to manage health anxiety. - Follow up in 2 months to assess progress and provide additional support as needed. Medication Management - Assessment: Patient is interested in reducing reliance on medication. - Plan: - Educate the patient about potential side effects and risks associated with long-term benzodiazepine use. - Discuss the possibility of alternative treatments, such as ketamine injections and infusions, if the patient is interested and able to afford them. - Monitor the patient's medication adherence and response to treatment during follow-up appointments. - Explore alternative treatment options. 06/07/2024 Nasreen Murry, a 23-year-old female, presents with worsening anxiety related to her daughter's abnormal blood work results and a history of panic attacks. Generalized Anxiety Disorder with Panic Attacks Assessment: Patient reports experiencing severe anxiety and panic attacks, particularly triggered by her daughter's recent abnormal blood work results. She describes a recent panic attack lasting 3 hours, characterized by severe shivering. The patient has a history of anxiety focused on her own health, which has now shifted to concern for her children's health. Previous treatments have included various SSRIs (Zoloft, Paxil) and BuSpar, with negative experiences reported for the latter. Plan: - Adjust lorazepam dosage to 1.5 mg PO at bedtime (1 mg tablet, take 1.5 tablets) - Continue hydroxyzine as needed for anxiety, with patient awareness of potential increased appetite side effect - Educate patient on coping strategies for health anxiety, including appropriate use of healthcare communication channels (e.g., portal messages) for non-urgent concerns - Encourage patient to recognize patterns in anxiety triggers and symptoms to differentiate between new health concerns and anxiety manifestations Disclaimer: This note has been transcribed using speech recognition software and serves as a reflection of the patient's visit. While efforts have been made to ensure accuracy, there may be errors, including nutrition professor inaccuracies and misspellings of medication names. This document should not be considered a verbatim record, and any discrepancies should be verified with the provider. Plan Of Treatment Next Appt Details Provider Name:Adryan Amaral Primitivo , 08/06/2024 11:15:00 AM, [address] [facility], [facility] [address], [address], Insurance Providers Payer Name Payer Address Payer Phone Subscriber Number Group Number Insured Name Patient Relationship to Insured Coverage Start Date Coverage End Date [employer] [address] [place] [address] [id number] [place] STEF NIMA Spouse - patient is the spouse of the insured Medical (General) History Medical History History ICD Code Past Psychiatric History: Anxiety Disord er,Panic Disorder hypertension abdominal aortic aneurysm: No undefined atrial fibrillation: No chronic fatigue syndrome: No essential tremor: No hyperlipidemia: No hypertension: Yes Parkinson's disease: No restless leg syndrome: No stroke: No subdural hematoma: No type 1 diabetes mellitus: No type 2 diabetes mellitus: No vitamin B12 deficiency: No vitamin D deficiency: No Imported from Highlights: patient has been under regular medical supervision for conditions including anxiety, dizziness, and dietary management surveillance. The patient was seen by SPIKE Lira on 08/23/2022 and Laura Baugh MD on 09/10/2022 for these issues. The patient also has a history of bariatric surgical procedure, which was addressed during a visit with Laura Baugh MD on 03/13/2023. On 09/16/2023, the patient was seen by CLIFTON Robertson for anemia screening, long-term drug therapy, left shoulder joint pain, and a referral need. The patient underwent a pre-surgery evaluation on 11/12/2023 with CLIFTON Robertson. On 04/22/2024, the patient was seen by Tru Garduno MD for conditions including anxiety, essential hypertension, gastroesophageal reflux disease without esophagitis, and vitamin D deficiency. The patient also underwent a surgical outpatient procedure on 12/23/2023 with Connor Stevens. The patient had an emergency visit on 07/04/2023 at [facility] for palpitations. Imported from Highlights: kenny lopez Type: Gastroenterology ConsultService Date: 06/05/2024 11:42 PMFacility/Provider: Tru Garduno MD, [facility] Internal [facility] [address] [address] for Encounter: Gastroesophageal reflux disease without esophagitisSummary of Findings: Patient is on famotidine and omeprazole for Gastroesophageal reflux disease without esophagitis. Declines any EGD, understands the risks for not doing the EGD. History of bariatric surgical procedure noted. Encounter Type: Discharge SummaryService Date: 07/04/2023 12:21 PMFacility/Provider: Edwar Rosales for Encounter: PalpitationsSummary of Findings: Patient was discharged with a final diagnosis of Palpitations. The patient was encouraged to see a electric gas appliances demonstrator for re-evaluation and to return for any new or worsening symptoms. Surgical History Surgery Date(Month/Year) knee replacement bariatric surgery- SLEEVE hernia repair Hospitalization History Reason Date(Month/Year) sepsis after bariatric surgery
--- OUTSIDE RECORDS SUMMARY | 2024-08-05 23:18 | XMS_ITS | Referral Summary ---
Author Organization [facility] Address [address] [place] [address] Care Team Providers Care Can Carrier Name Role Phone Laura Baugh MD Primary Care Provider + Allergies Active Allergy Reactions Criticality Noted Date Comments Ciprofloxacin Muscle pain Medium 08/05/2023 Ciprofloxacin-Dexamethas one Hives,Vomiting Medium 08/05/2023 Erythromycin Other (See comments),Rash Medium 07/10/2018 Cramps vomiting diarrhea Penicillins Hives,Other (See comments),Rash,Unkno wn,Urticaria High 01/30/2017 As a child Chest and throat hives Medications albuterol 2.5 mg /3 mL (0.083 %) nebulizer solution Inhale 3 mL 4 times a day by nebulization route as needed. Active ALPRAZolam (XANAX) 0.5 mg tablet Take by mouth 2 (two) times a day as needed Active famotidine (PEPCID) 20 mg tablet Take by mouth 2 (two) times a day as needed Active topiramate (TOPAMAX) 50 mg tablet TAKE 1 TABLET BY MOUTH ONCE A DAY WITH DINNER. Active Active Problems Problem Noted Date Diagnosed Date Eyestrain, left 08/05/2023 Assessment & Plan (08/05/2023 3:56 PM CDT): Patient ed I would like to compare her current glasses and contact lens prescription to today's Mrx - she will upload this into [employer] for me to review. I think it is reasonable that by updating her glasses we could help improve her symptoms. Amblyopia of left eye 08/05/2023 Assessment & Plan (08/05/2023 3:53 PM CDT): Myopic fundus History of EMS left eye (OS) 1991 approx Exotropia, left eye 08/05/2023 Assessment & Plan (08/05/2023 3:55 PM CDT): Approx 50^ CLXT I think it is reasonable that she may be experiencing strain/ocular discomfort/ache OS due to her large angle deviation Educated patient we can consider referral for strabismus surgery in the near future Myopia with astigmatism and presbyopia, right Lattice degeneration, left eye 08/05/2023 Assessment & Plan (08/05/2023 3:58 PM CDT): Flat on exam with minimal pigment Patient reports she had a laser procedure done for eye retinal tear Signs and symptoms of retinal detachment reviewed, patient is worried return immediately with any new flashes or floaters in either eye Esophageal erosions 07/04/2023 Hiatal hernia with gastroesophageal reflux 07/03 Terminal esophageal web 07/04/2023 Anxiety disorder 01/30/2017 HTN (hypertension), benign 01/30/2017 Obstructive sleep apnea (adult) (pediatric) 04/03 Social History Tobacco Use Types Packs/Day Years Used Date Smoking Tobacco: Never Assessed Personal Safety Answer Date Recorded Have you ever been in or are you currently in a harmful physical or emotional relationship or is someone making you feel afraid or unsafe? Denies 07/04/2023 Comments Unknown Sex and Gender Information Value Date Recorded Sex Assigned at Not on file Legal Sex Female 4:26 PM CDT Gender Identity Not on file Sexual Orientation Not on file Last Filed Vital Signs Vital Sign Reading Time Taken Comments Blood Pressure 128/64 07/04/2023 1:30 PM CDT Pulse 56 07/04/2023 1:30 PM CDT Temperature 36.7 C (98 F) 07/04/2023 10:44 AM CDT Respiratory Rate 18 07/04/2023 1:30 PM CDT Oxygen Saturation 99% 07/04/2023 1:30 PM CDT Inhaled Oxygen Concentration - - Weight 98.4 kg (217 lb) 07/04/2023 10:44 AM CDT Height 162.6 cm (5' 4) 07/04/2023 10:44 AM CDT Body Mass Index 37.25 07/04/2023 10:44 AM CDT Plan of Treatment Not on file Insurance [facility] [employer] [facility] H[facility]POS Care Teams Can Carrier Relationship Specialty Start Date End Date Laura Baugh MD PCP - General 12/26/16
--- OUTSIDE RECORDS SUMMARY | 2024-08-05 23:18 | XMS_ITS | Clinical Summary ---
Author Organization Address [address] [place] [address] Care Team Providers Care Product Manager E Commerce Name Role Phone Laura Baugh MD Primary [...] Mrx - she will upload this into [employer] for me to review. I think it [...] 01/30/2017 Obstructive sleep apnea (adult) (pediatric) 04/03 Surgical History Surgery Date Site/Laterality Comments BARIATRIC SURGERY HIATAL HERNIA REPAIR Medical History Medical History Date Comments Hypertension DVT (deep venous thrombosis) (HCC) BILL (obstructive sleep apnea) Anxiety Social History Tobacco Use Types Packs/Day Years [...] on file Sexual Orientation Not on file Obstetrics History Last Filed Vital Signs Vital Sign Reading [...] 07/04/2023 10:44 AM CDT Plan of Treatment Health Maintenance Due Date Last Done Comments Cervical Cancer Screening 1972 Colon Cancer Screening-Colonoscopy 1972 Depression Screening 1972 Hepatitis C Screening 1972 DTaP/Tdap/Td Vaccine (1 - Tdap) 10/30/1983 Hepatitis B Screening 1990 Regular Well Visit/Exam 18-64 1990 Breast Cancer Screening-Mammogram 05/15/2022 05/15/2021 Zoster Vaccine (1 of 2) 2022 Influenza Vaccine (Season Ended) 2024 12/28/2018, 12/19/2017, 12/12/2016, Additional history exists Pneumococcal vaccine <65 Aged Out No longer eligible based on patient's age to complete this topic Insurance HMO/POS [employer] [place] HMO/POS Care Teams Product Manager E Commerce Relationship Specialty Start Date End Date Laura Baugh MD PCP - General 12/26/16
[2024-08-05 23:21] VITALS: BP 175/110; PULSE 65; RESP 16; TEMP 36.3; O2SAT 100
--- OUTSIDE RECORDS SUMMARY | 2024-08-06 00:30 | XMS_ITS | Clinical Summary ---
Author Organization [facility] Address [address] [place] [address] Phone Care Team Providers Care Manager Statistical Programming Name Role Phone Laura Baugh MD Primary [...] daily. 60 Tablet 2 02/06/2022 7:54 AM CODER 02/04/2022 Active ondansetron (Zofran) 4 mg Tablet Take 1 Tablet (4 mg) by mouth every 8 hours as needed for Nausea/Vomi ting. 50 Tablet 02/06/2022 7:54 AM CODER 02/04/2022 Active HYDROcodone-acet aminophen (HYCET) 7.5-325 mg/15 [...] Comments Blood Pressure 119/88 02/18/2022 12:51 PM CODER Pulse 76 02/18/2022 12:51 PM CODER Temperature 36.8 C (98.2 F) 02/18/2022 7:55 AM CODER Respiratory Rate 25 02/18/2022 12:51 PM CODER Oxygen Saturation 98% 02/18/2022 12:51 PM CODER Inhaled Oxygen Concentration - - Weight 123.4 kg (272 lb) 02/18/2022 7:55 AM CODER Height 162.6 cm (5' 4) 02/18/2022 7:55 AM CODER Body Mass Index 46.69 02/18/2022 7:55 AM CODER Plan of Treatment Health Maintenance Due Date [...] history exists Medical Devices Implanted Type Area Mash Grinder Device Identifier Shelf Expiration Date Model / Serial / Lot Seamguard Endogia 60 Blk [id number] - [id number] Implanted:Qty : 2 on 02/04/2022 by Lashell Huang MD at [facility] N/A: Abdomen [employer] [id number] / / Seamguard Endogia 60 [id number] [id number] - [id number] Implanted:Qty : 3 on 02/04/2022 by Lashell Huang MD at [facility] N/A: Abdomen [employer] [id number] / / Insurance AETNA CHOICE POS II RX [facility] [employer] Advance Directives For more information, please contact: [phone] * Full Code (Latest Code Status on File) Date Activated Date Inactivated Comments 02/04/2022 8:26 PM 02/06/2022 12:34 AM * Full Code Date Activated Date Inactivated Comments 02/04/2022 8:14 AM 02/04/2022 8:25 PM Care Teams Manager Statistical Programming Relationship Specialty Start Date End Date Laura Baugh MD [address] [id number] PCP - General Family Practice 02/05/22
--- OUTSIDE RECORDS SUMMARY | 2024-08-06 00:30 | XMS_ITS | Encounter Summary ---
Author Organization [facility] Address [address] [place] [address] Care Team Providers Care Letter Carrier Name Role Phone Laura Baugh MD Primary Care Provider + Reason for Visit * Reason Onset Date Comments Medical management 02/05/2022 Gave message to INGA Shields/Chayito finley Encounter Details Date Type Department Care Team (Late st Contact Info) Description 02/05/2022 Telephone [facility] Admitting [address] [place] [address] [place] [address] [facility] [place] [address] Medical management (Gave message to [...] Coronavirus/COVID-19? No / Unsure 01/30/2022 8:01 AM [employer] documented as of this encounter Plan of Treatment Not on file documented as of this encounter Visit Diagnoses Not on filedocumented in this encounter Care Teams Letter Carrier Relationship Specialty Start Date End Date Laura Baugh MD [address] [place] [address] PCP - General Family Practice 02/05/22 documented as of this encounter
--- OUTSIDE RECORDS SUMMARY | 2024-08-06 00:31 | XMS_ITS | Clinical Summary ---
Author Organization [facility] Address [address] [place] [address] Care Team Providers Care Director Of Research Name Role Phone Laura Baugh MD Primary Care Provider [phone] Source Comments [facility],non-owned Affiliates and Associated Physician Practices is amultiple site organization consisting of ambulatory clinics and hospital sitesin [place], [place], [place] and [place]. This disclosure is being madepursuant to the Care Everywhere program and may not contain all information available regarding this patient. Last updated 17.[facility] Allergies Active Allergy Reactions Criticality Noted Date [...] complete this topic Insurance AETNA Care Teams Director Of Research Relationship Specialty Start Date End Date Laura Baugh MD [address] [place] [phone] PCP - General Family Medicine 11/15/16
--- OUTSIDE RECORDS SUMMARY | 2024-08-06 00:31 | XMS_ITS | Referral Summary ---
Author Organization [facility] Address [address] [place] [address] Care Team Providers Care Cable Armorer Operator Name Role Phone Laura Baugh MD Primary [...] Mrx - she will upload this into [employer] for me to review. I think it [...] Plan of Treatment Not on file Insurance [facility] H[facility]/POS AETNA [facility] HMO/POS Care Teams Cable Armorer Operator Relationship Specialty Start Date End Date Laura Baugh MD PCP - General 12/26/16
--- OUTSIDE RECORDS SUMMARY | 2024-08-06 00:31 | XMS_ITS | CONTINUITY OF CARE DOCUMENT ---
Author Name nicolas valenzuela Address Unknown Organization [facility] Address [address] [place] [address] Phone [phone] Care Team Providers Care Cat Skinner Name Role Phone Edna Clarke MD Unavailable [phone] STUART LY MD Unavailable [phone] STUART LY MD Unavailable PROBLEMS Condition Status Date Provider Notes Swelling [...] In-person encounter Office Visit Edna Clarke MD [facility] 7 - 7 In-person encounter Office Visit Edna Clarke MD [facility] Bradycardia 8 - 8 In-person encounter Office Visit Edna Clarke MD [facility] Office 0 - 2 In-person encounter Office Visit Edna Clarke MD [facility] Office 9 - 9 In-person encounter Office Visit Edna Clarke MD [facility] Office 8 - 8 In-person encounter Office Visit Edna Clarke MD [facility] Depression 3 - 3 In-person encounter Office Visit Edna Clarke MD [facility] Office 6 - 7 In-person encounter Office Visit Edna Clarke MD [facility] Office 7 - 7 In-person encounter Office Visit Edna Clarke MD [facility] Office 0 - 0 In-person encounter Office Visit Edna Clarke MD [facility] Office 5 - 5 In-person encounter Office Visit Edna Clarke MD [facility] Knee pain, left 0 - 4 In-person encounter Office Visit Edna Clarke MD [facility] SOBTobacco use, quitObesitySleep apnea, obstructive - [...] Nikkie kLogic blood pressure, diastolic 86 mm[Hg] Hi maxim Dorsey blood pressure, systolic 142 mm[Hg] [facility] heldelilah Dorsey oxygen saturation, oximetry 97 % Marissa Dorsey pulse rate 67 /min Marissa collins weight E&M 220 [lb_av] Marissa collins respiratory rate E&M 14 /min Zina Stantonand blood pressure, cuff size large Hi maxim Dorsey height E&M 66 [in_i] Marissa [...] lder height E&M 66 [in_i] María Samanthanfe [facility] Body Mass Index (Ratio) 52.29 kg/m2 Popeye Clarke MD oxygen saturation, oximetry 96 % [facility] pulse rate 79 /min [facility] blood pressure, diastolic 80 mm[Hg] Br ittformerly [facility] Block blood pressure, systolic 122 mm[Hg] Brynn [facility] weight E&M 324 [lb_av] [facility] blood pressure, resting Yes [facility] respiratory rate E&M 16 /min [facility] height E&M 66 [in_i] [facility] Body Mass Index (Ratio) 51.48 kg/m2 Popeye Clarke MD blood pressure, cuff size regular Kr isty Donavan blood pressure, diastolic 90 mm[Hg] Kr isty Donavan blood pressure, systolic 140 mm[Hg] Kri sty Dayton pulse rate 75 /min Megan Donavan oxygen saturation, oximetry 98 % Megan Dayton respiratory rate E&M 19 /min Megan Donavan weight E&M 319 [lb_av] Megan Dayton height E&M 66 [in_i] Megan Body Mass [...] donovan Omer oxygen saturation, oximetry 99 % [facility] respiratory rate E&M 16 /min [facility] pulse rate 80 /min [facility] weight E&M 300 [lb_av] [facility] height E&M 66 [in_i] [facility] Body Mass Index (Ratio) 50.68 kg/m2 Popeye Clarke MD pulse rate 72 /min [facility] respiratory rate E&M 16 /min Kiran Wolfe oxygen saturation, oximetry 98 % Kiran Wolfe blood pressure, diastolic 96 mm[Hg] Uriel Wolfe blood pressure, systolic 138 mm[Hg] Marce Wolfe weight E&M 314 [lb_av] [facility] height E&M 66 [in_i] Kiran [facility] Body Mass Index (Ratio) 50.68 kg/m2 Popeye Clarke MD blood pressure, diastolic 100 mm[Hg] Uriel Wolfe blood pressure, systolic 140 mm[Hg] Marce Wolfe oxygen saturation, oximetry 99 % Kiran Wolfe respiratory rate E&M 16 /min Kiran Yaneth pulse rate 84 /min Kiran [facility] weight E&M 314 [lb_av] Kiran [facility] height E&M 66 [in_i] [facility] Body Mass Index (Ratio) 49.74 kg/m2 Popeye Clarke MD blood pressure, diastolic 94 mm[Hg] Randi Edwardsshana Blanca blood pressure, systolic 141 mm[Hg] Lisy Blanca oxygen saturation, oximetry 96 % Godwin Blanca respiratory rate E&M 20 /min DarleenStarla Gonsalesenson pulse rate 81 /min Godwin Frank ken weight E&M 308.2 [lb_av] Godwin Gonsales akua height E&M 66 [in_i] Godwin Frank [facility] blood pressure, resting Yes Gordy Greer Body [...] Not Estab. platelet count 233 X10E3/UL LinkLogic [phone]/12 /01 red blood cell distribution width 16.5 [...] revi ewed - no changes required Declan لاعراقيzaxiao social history reviewed E&M revi ewed - [...] 1.5 Megan Donavan cigarette use yes Megan Dayton smoking status Former smoker Megan Dayton social history reviewed E&M revi ewed - no changes required Sam Kaminski smoking, year quit 2015 Megan Martinez sby number of years as a smoker 25 a Megan Dayton smoking history, tot al pack/day 1.5 Megan Dayton cigarette use yes Megan Dayton smoking status Former smoker Megan Cramerby social history E&M S moking History: P atient is a former smoker. Edna Clarke MD social history reviewed E&M revi ewed - no changes required Edna Clarke MD number of grandchildren Edna Clarke MD [facility] smoking, year quit 2015 [facility] number of years as a smoker 25 a [facility] smoking history, tot al pack/day 1.5 [facility] cigarette use yes [facility] smoking status Former smoker [facility] smoking, year quit 2015 Edna diallo [...] Payer name Policy type / Coverage type [employer] red constitution party ID AETNA [facility] Other [id number] ADVANCE DIRECTIVES Name Date DISCUSSED - NO DECISION MADE TREATMENT PLAN Date Name Performer [id number],C, A symptomatic currently Declan Ocampo [id number],C,I reviewed the importance of lifestyle and dietary modification with the patient. Recommend she reduce sodium consumption S he is taking her Coreg once daily at this time W ill enroll in RPM to monitor her BP BP today: 148/92 P rior BP: 136/82 (05/17/2022) Labs Reviewed: C reat: 0.64 (06/21/2017) Declan Ocampo [id number],C,L ast holter in May 2022 showed S [...] to date holter for now Declan Ocampo [id number],C, T he patient is using CPAP on a regular basis. The patient has been benefiting from therapy and should continue use. Declan cOampo [id number],B, Declan Howard i [id number],C,I mproved, recommend she cut back on her HCTZ as needed if she does not have consistent swelling . Declan Ocampo [id number],C,S he is here today as she was [...] holter once results are available. Declan Ocampo [id number],C, B P today: 136/82 P rior BP: 110/66 (05/08/2022) Labs Reviewed: C reat: 0.64 (06/21/2017) Declan Ocampo [id number],C, H aving anxiety from the stressors in her life. Declan Ocampo [id number],C,Asymptomatic currently Declan Ocampo [id number],C, T he patient is using CPAP on a regular basis. The patient has been benefiting from therapy and should continue use. Declan Ocampo [id number],C, W eightt loss, regular exercise encouraged. Dietary carb reduction encouraged. S/P bariatric surgery Rox Bennettdakota [id number],C,B P is low, will decrease her Coreg [...] tablet by mouth every day Rox Jaclyn [id number],C, H aving anxiety from the stressors in her life. Will obtain telemonitor to assess for arrhythmias. Rox Anaya [id number],SBrian [id number],S, H er updated medication list for this problem includes: Hydrochlorothiazide 25 Mg Tablet (Hydrochlorothiazide) ..... Take 1 tablet by mouth every day Carvedilol 6.25 Mg Tablet (Carvedilol) ..... Take 1 tablet by mouth twice a day Brian Dominguez [id number],S, B P today: 140/80 P rior BP: 122/80 (02/09/2020) Her updated medication list for this problem includes: Hydrochlorothiazide 25 Mg Tablet (Hydrochlorothiazide) ..... Take 1 tablet by mouth every day Carvedilol 6.25 Mg Tablet (Carvedilol) ..... Take 1 tablet by mouth twice a day Brian Dominguez [id number],S, T he patient is using CPAP on [...] artery systolic pressure is [address] Elect[facility] Electrophysiology: T he patient is using CPAP on a regular basis. The patient has been benefiting from therapy and should continue use. [facility] Elect[facility]: A symptomatic currently [facility] Electrophysiology: B P today: 130/80 P rior BP: 142/86 (05/09/2023) Labs Reviewed: C reat: 0.64 (06/21/2017) Her updated medication list for this problem includes: Carvedilol 3.125 Mg Tablet (Carvedilol) ..... Take 1 tablet by mouth twice a day [facility] Elect[facility]: T he patient is using CPAP on a regular basis. The patient has been benefiting from therapy and should continue use. [facility] Electrophysiology:no swelling at this time [facility] Electrophysiology:wi ll check venous duplex for her new found swollen area behind R knee [facility] Electrophysiology [facility] Electrophysiology: B P today: 142/86 P rior BP: 148/92 (11/01/2022) Labs Reviewed: C reat: 0.64 (06/21/2017) Her updated medication list for this problem includes: Carvedilol 3.125 Mg Tablet (Carvedilol) ..... Take 1 tablet by mouth twice a day [facility] Electrophysiology: A symptomatic currently [facility] Electrophysiology: A symptomatic currently [facility] Electrophysiology:I reviewed the importance of lifestyle and [...] and should continue use. Declan shoshananathalia Electrophysiology [facility] Electrophysiology:Im proved, recommend she cut back on [...] and swelling Orders: 9 9213 LTD. Complex (CPT-29182) Edna Clarke MD Electrophysiology:le ft calf pain and swelling Orders: E KG (CPT-17359) 9 9213 LTD. Complex (CPT-63489) S chedule Followup (*) V enous Doppler Unilateral LLE (CPT-85698) Edna Clarke MD Cardiology:Weightt l oss, regular exercise encouraged. Dietary carb reduction encouraged. Brian Dominguez Cardiology:Start oze mpic for weight loss. Dietary carb reduction encouraged. Brian [facility] Cardiology:No DVT no duane on most recent venous US from July 2017. Not currently on anti-coagulation. Only trace edea ppreciated on exam. No indication for repeat US at this time. Brian [facility] Cardiology:No signif icant valvular pathology noted on echo from August 2019. Brian [facility] Cardiology:Reinforce d importance of low sodium diet. B P today: 140/90 P rior BP: 140/70 (08/04/2019) Her updated medication list for this problem includes: Hydrochlorothiazide 25 Mg Oral Tablet (Hydrochlorothiazide) ..... One tab daily Carvedilol 6.25 Mg Tablet (Carvedilol) ..... Take 1 tablet by mouth twice a day Brian [facility] Cardiology: H er updated medication list for this problem includes: Hydrochlorothiazide 25 Mg Oral Tablet (Hydrochlorothiazide) ..... One tab daily Carvedilol 6.25 Mg Tablet (Carvedilol) ..... Take 1 tablet by mouth twice a day Brian [facility] Cardiology:The patie nt is using CPAP on a regular basis. The patient has been benefiting from therapy and should continue use. Brian [facility] Electrophysiology:If BP continues to stay high, may [...] year. O rders: 9 9213 LTD. Complex (CPT-64224) S chedule Followup (*) C omplete Echo (CPT-02702) Her updated medication list for this problem includes: Coreg 6.25 Mg Oral Tablet (Carvedilol) ..... One tab. twice daily Gordy Carrillo Electrophysiology Edna child MD Electrophysiology Edna child MD Electrophysiology: O rders: 9 9213 LTD. Complex (CPT-82785) S chedule Followup (*) C omplete Echo (CPT-04452) Her updated medication list for this problem includes: Coreg 6.25 Mg Oral Tablet (Carvedilol) ..... One tab. twice daily Edna Clarke MD Electrophysiology: O rders: 9 9213 LTD. Complex (CPT-23292) S chedule Followup (*) Edna Clarke MD Electrophysiology: H er updated medication list for this problem includes: Coreg 6.25 Mg Oral Tablet (Carvedilol) ..... One tab. twice daily Edna Clarke MD Electrophysiology: O rders: E KG (CPT-71358) S chedule Followup (*) Edna Clarke MD [...] twice daily Orders: 9 9213 LTD. Complex (CPT-11503) C T Chest w/ contrast (CPT-73387) Edna Clarke MD Cardiology:Her D Dim er is elevated. Patient has confirmed DVT in left lower extremity below knee. Pt complains of sob and fatigue. Reccomend CT to asses possible PE and PFT to asses diffusion capacity., Will start her on Xarelto. Orders: V enous Doppler Unilateral LLE (90218) Edna Clarke MD Cardiology: B P today: 141/94 P rior BP: 162/100 (01/30/2017) Edna Clarke MD Cardiology:Her D Dim er is elevated. Venous doppler results showed DVT. Will start her on Xarelto. Orders: V enous Doppler Unilateral LLE (09890) Edna Clarke MD Cardiology: H er updated medication list for this problem includes: Coreg 3.125 Mg Oral Tablet (Carvedilol) ..... One tab. twice daily Orders: 9 9213 LTD. Complex (CPT-54313) C T Chest w/ contrast (CPT-95953) Edna Clarke MD Electrophysiology New Patient fa xed 12-4, lo:On CPAP. Edna Clarke MD Electrophysiology Ne w Patient faxed 12-4, lo:Quit a year ago. Edna Clarke MD Electrophysiology Ne w Patient faxed 12-4, lo:BP today: 162/100 Orders: R enal Artery Duplex (CPT-71592) Edna Clarke MD Electrophysiology Ne w Patient [...] Venous Doppler Unila teral LLE DLCO - 02184 FRC - 68161 FVC - 10394 Venous Doppler Unila teral LLE CT Chest w/ contrast DLCO - 61503 FRC - 69001 FVC - 31288 Renal Artery Duplex Complete Echo PROBNP, N [...] completed EKG Edna borden MD completed SNOMED-CT: [id number] Current Medications Documented Edna Clarke MD completed FVC / MVV with bronchodilator - 42447 Edna Clarke MD completed FRC - 63674 Edna borden MD completed SpO2 - 24090 Edna borden MD completed DLCO - 53841 Edna borden MD completed EKG Edna borden MD completed SNOMED-CT: 861723813206064 Current Medications Documented Saulius Kalvaitis completed EKG ulius Ivette borden MD completed SNOMED-CT: 266963636719457 Current Medications Documented ulius Kalvaitis completed EKG ulius Ivette borden MD completed SNOMED-CT: 307760342098826 Current Medications Documented ulius Kalmarinaitis completed
--- OUTSIDE RECORDS SUMMARY | 2024-08-06 00:31 | XMS_ITS | Clinical Summary ---
Author Organization [facility] Address [address] [place] [phone] Phone Care Team Providers Care Coater Operator Name Role Phone Laura Solitario MD Primary Care Provider [phone] Allergies Active Allergy Reactions Criticality Noted Date [...] on file Legal Sex Female 7:32 AM OIL REFINERY PROCESS TECHNICIAN Gender Identity Not on file Sexual Orientation Not on file Last Filed Vital Signs Vital Sign Reading Time Taken Comments Blood Pressure 136/82 02/11/2020 8:09 AM OIL REFINERY PROCESS TECHNICIAN Pulse 61 02/11/2020 8:09 AM OIL REFINERY PROCESS TECHNICIAN Temperature 36.8 C (98.3 F) 02/11/2020 8:09 AM OIL REFINERY PROCESS TECHNICIAN Respiratory Rate 18 02/11/2020 8:09 AM OIL REFINERY PROCESS TECHNICIAN Oxygen Saturation 98% 02/11/2020 8:09 AM OIL REFINERY PROCESS TECHNICIAN Inhaled Oxygen Concentration - - Weight 145.2 kg (320 lb) 02/11/2020 8:09 AM OIL REFINERY PROCESS TECHNICIAN Height - - Body Mass Index - [...] this topic Insurance AETNA SOI Care Teams Coater Operator Relationship Specialty Start Date End Date Laura Solitario MD [address] [place] [address] PCP - General Family Medicine 02/11/20
--- OUTSIDE RECORDS SUMMARY | 2024-08-06 00:31 | XMS_ITS | Continuity of Care Document ---
Author Organization [facility] Address [address] [place] [address] Phone Care Team Providers Care Flooring Sales Manager Name Role Phone Deacon Contreras Unavailable Unavailable [...] Diagnoses Date Provider Providers Copied on Encounter [facility] [address], [id number], tel:[phone] Humphrey No Information Jan-0 4 Mudouglasl Deacon. [address] [facility], [address], [facility], [place]. tel: [phone] [place] [address] [facility] [address], [place], [place], [id number], tel:[phone] Humphrey No Information Nov-0 5-202 4 Muehl Deacon. [address] [facility], [facility] [address], [place], [facility], [place]. tel: [phone] Referring Provider: Connor Stevens, [address], [place], [address]. tel:[phone], [id number], tel:[phone] Humphrey No Information 0 4 Muehl Deacon. [address] [facility], [facility] [address] [phone] Referring Provider: Connor Stevens [address] [address]. tel:[phone], [id number], tel:[phone] Humphrey No Information 4 Jan Worthy. [address] [facility], [address] tel: [phone] Referring Provider: Connor Stevens, [address] [address]. tel:[phone] Family History Family Member Type Diagnosis Age At Onset No Information Payers Payer name Insurance type Covered constitution party ID Raphaelstarr trejo(s) [id number] Social History Type Description Quantity Date Captured [...]
--- OUTSIDE RECORDS SUMMARY | 2024-08-06 00:31 | XMS_ITS | Clinical Summary ---
Author Organization [facility] Address [address] [place] [address] Care Team Providers Care Print Operator Name Role Phone Laura Baugh MD [...] Mrx - she will upload this into [employer] for me to review. I think it [...] to complete this topic Insurance HMO/POS A[employer] [place] HMO/POS Care Teams Print Operator Relationship Specialty Start Date End Date Laura Baugh MD PCP - General 12/26/16
--- OUTSIDE RECORDS SUMMARY | 2024-08-06 00:31 | XMS_ITS | Patient Health Record ---
Author Organization [facility] As One Touch EMR Address [address] [facility] [address] [place] [address] Care Team Providers Care Hoist Operator Name Role Phone Laureen CARRERA, Tru Primary Care Provider Un available Adryan Langford Unavailable [phone] Miguel Calles Unavailable [phone] Allergies Allergen (clinical drug ingredient) Drug/Non Drug Allergy documented on EMR Reaction Allergy Type Onset Date Status ciprofloxacin Cipro Unknown Drug Allergy Act kayla amoxicillin Amoxicillin Unknown Drug Allergy Act kayla Penicillin Unknown Drug Allergy Active Results Component Value Reference Range Notes UDT Reviewed date:04/01/2024 11:57:43 AM Interpretation: Performing Lab: Notes/Report: THC N 0 - 50 ng/ml Cocaine N 0 - 300 ng/ml Amphetamine N 0 - 1000 ng/ml Buprenorphine (BUP) N 0 - 10 ng/ml Secobarbital (Bar) N 0 - 300 ng/ml Oxazepam (BZO) P 0 - 300 ng/ml 0-qnicrevqsm-5,7-xcyjgxbz-5, 3-diph enylpyrrolidine (EDDP) N 0 - 300 ng/ml Methamphetamine (MET) N 0 - 1000 ng/ml Methylenedioxymethamphetamin e (MDMA) N 0 - 500 ng/ml Morphine (MOP 300/[id number]) N 0 - 300 ng/ml Methadone (MTD) N 0 - 300 ng/ml Phencyclidine (PCP) N 0 - 25 ng/ml Nortriptyline (TCA) N 0 - 1000 ng/ml Oxycodone N 0 - 300 ng/ml x N 0 - 300 ng/ml UDT Reviewed date:06/08/2024 04:47:19 PM Interpretation: Performing Lab: Notes/Report: THC N 0 - 50 ng/ml Cocaine N 0 - 300 ng/ml Amphetamine N 0 - 1000 ng/ml Buprenorphine (BUP) N 0 - 10 ng/ml Secobarbital (Bar) N 0 - 300 ng/ml Oxazepam (BZO) P 0 - 300 ng/ml 9-ftwcvylppp-0,4-jfwqsulj-4, 3-diph enylpyrrolidine (EDDP) N 0 - 300 ng/ml Methamphetamine (MET) N 0 - 1000 ng/ml Methylenedioxymethamphetamin e (MDMA) N 0 - 500 ng/ml Morphine (MOP 300/[id number]) N 0 - 300 ng/ml Methadone (MTD) N 0 - 300 ng/ml Phencyclidine (PCP) N 0 - 25 ng/ml Nortriptyline (TCA) N 0 - 1000 ng/ml Oxycodone N 0 - 300 ng/ml x N 0 - 300 ng/ml DRUG MONITOR, BENZO, QN, URI BILL ([id number]) Reviewed date:04/06/2024 10:13:15 AM Interpretation: Performing Lab:[place] [employer] [id number] [facility] Samson Cuevas, Director - [address] [facility] ABFormerly [facility] Notes/Report: FASTING: NO Alphahydroxyalprazolam NEGATIVE <25 ng/mL [...] analytical performance characteristics have been determined by [employer]. It has not been cleared or approved by the FDA. This assay has been validated pursuant to the CLIA regulations and is used for clinical purposes. medMATCH(R) enables providers to identify if drug use is consistent or inconsistent with a corresponding prescribed medication(s) list. Healthcare Providers needing Interpretation assistance, please contact us at [phone] ( ) M-F, 8am to 10pm EST PRESCRIBED DRUGS, medMATCH(R ) ([id number]) Reviewed date:04/06/2024 10:13:25 AM Interpretation: Performing Lab:[place], [facility][id number] [facility], [id number] Jenaro Viramontes MD Notes/Report: FASTING: NO medMATCH Summary Prescribed Prescribed Not Prescribed Consistent Inconsistent Inconsistent Lorazepam Benzodiazepines Reviewed date:06/14/2024 05:10:15 PM Interpretation: Performing Lab:, [facility], [address] [place] [address], Director - [id number] Notes/Report: An exception occurred while processing this report and so it has incomplete data. Please contact [employer] for assistance. Not Medicated Consistent Not Medicated [...] NEGATIVE 20.0 ng/mL PDF Report CE_OUT_RAW_COMMON _SRC_ORU NEED PHYSICIAN SIGNATURE Reviewed date:06/14/2024 05:10:15 PM Interpretation: Performing Lab: Notes/Report: Reason For Referral No Information Medications Medication [...] Problem Status W/U Status Risk Notes Problem [id number] ASHLEY (generalized anxiety disorder) (F41.1) Active confirmed Problem Hypertension (I10) 02/11/2020 Active confirmed Vital Signs Heart Rate 60 /min 06/07/2024 Blood pressure diastolic 83 mm Hg 06/07/2024 Weight-kg 109.77 kg 06/07/2024 Blood pressure systolic 120 mm Hg 06/07/2024 Weight 242 lbs 06/07/2024 Encounters Encounter Location Date Provider Diagnosis Skype, [facility] [address] [facility] [address] [place] [address] 04/01/2024 Miguel Calles ASHLEY (generalized anxiety disorder) F41.1 [employer] [address] [place] [address] [place] [address] 04/12/2024 Adryan Langford ASHLEY (generalized anxiety disorder) F41.1 and Hypertension I10 [facility] [address] [facility] [address] [place] [address] 06/07/2024 Adryan Langford Encounter for screen ing for depression Z13.31 ; Encounter for screening for cardiovascular disorders Z13.6 ; ASHLEY (generalized anxiety disorder) F41.1 and Hypertension I10 Assessments Encounter Date Diagnosis (ICD Code) Assessment Notes Treatment Notes Treatment Clinical Notes Section Notes 04/01/2024 ASHLEY (generalized anxiety disorder) (ICD-10 - F41.1) 04/12/2024 ASHLEY (generalized anxiety disorder) (ICD-10 - F41.1) 04/12/2024 Hypertension (ICD-10 - I10) 06/07/2024 Encounter for screening for depression (ICD-10 - Z13.31) 06/07/2024 Encounter for screening for cardiovascular disorders [...] primary care physician, Dr. Zhen Lloyd, and relief worker. - Reinforce the importance of therapy and [...] ensure accuracy, there may be errors, including salesperson driver inaccuracies and misspellings of medication names. This document should not be considered a verbatim record, and any discrepancies should be verified with the provider. Plan Of Treatment Next Appt Details Provider Name:Adryan Amaral Primitivo , 08/06/2024 11:15:00 AM, [address] [facility] [address], [facility] [address], [place], [address], Insurance Providers Payer Name Payer Address Payer Phone Subscriber Number Group Number Insured Name Patient Relationship to Insured Coverage Start Date Coverage End Date [employer] [address] [place] [address] [id number] [place] STEF NIMA Spouse - patient is [...] had an emergency visit on 07/04/2023 at [facility] for palpitations. Imported from Highlights: kenny lopez Type: Gastroenterology ConsultService Date: 06/05/2024 11:42 PMFacility/Provider: Tru Garduno MD, [facility] [address] [address] for Encounter: Gastroesophageal reflux disease without esophagitisSummary [...] The patient was encouraged to see a relief worker for re-evaluation and to return for any new or worsening symptoms. Surgical History Surgery Date(Month/Year) knee replacement bariatric surgery- SLEEVE hernia repair Hospitalization History Reason Date(Month/Year) sepsis after bariatric surgery
--- NOTE | 2024-08-06 00:47 | ED.SKABFB ---
HPI - Skin/Abscess/Foreign Bdy General Chief complaint: Skin/Abscess/Foreign Body Stated complaint: tick embedding in L side Time Seen by Provider: 08/06/24 00:12 History of Present Illness HPI narrative: 53-year-old female presenting after tick exposure. She states that she found a tick on the left side of her abdominal wall while showering today. Was not present yesterday. Tick has been placed for less than 24 hours. States that she was recently hiking and may have tract into the household as multiple family members have had takes. She has no symptoms at this time. She states she feels anxious about the possible complications from tick exposure. Patient removed it at home prior to arrival. Related Data Home Medications ?Medication ?Instructions ?Recorded ?Confirmed ?Last Taken ?Type lorazepam 2 mg tablet 2 mg PO DAILY PRN 02/19/19 06/17/23 Unknown History carvedilol 6.25 mg tablet 3.125 mg PO ONCE 10/16/22 06/17/23 Unknown History Allergies Allergy/AdvReac Type Severity Reaction Status Date / Time erythromycin base Allergy Intermediate Nausea and Verified 08/05/24 23:16 Vomiting Penicillins Allergy Intermediate Nausea and Verified 08/05/24 23:16 Vomiting amoxicillin (From Amoxil) Allergy Rash Verified 08/05/24 23:16 Review of Systems Review of Systems: [facility] Past Medical History Medical History Hernia Degenerative arthritis of knee, bilateral H/O blood clots Bilateral bunions History of deep venous thrombosis (DVT) of distal vein of left lower extremity BILL on CPAP Osteoarthritis involving multiple joints on both sides of body Morbid obesity with BMI of 50.0-59.9, adult Primary hypertension GERD (gastroesophageal reflux disease) Arthritis Anxiety Surgical History Surgical History History of hernia surgery History of sleeve gastrectomy Hx of knee surgery 05/26/2015 Arthroscopy w/ chondroplasty, LT [place]; two previous arthroscopies on the right Family History Family History Grandparent No problems noted. Grandparent Cerebrovascular accident Grandparent No problems noted. Grandparent Carcinoma of colon Social History Social History Smoking packs per day: 2 Smoking cigarettes per day: 40.0 Years smoked: 3 Smoking pack-years: 6.00 Smoking status: Former smoker Alcohol intake: never Substance use: never Do You Feel Safe in your Home?: Yes Lack of Transportation: No Lack of Food: Never True Current Housing: I Have Housing Concerned About Future Housing: No Difficulty Paying Gas/Electric Bills: No Difficulty Paying for Meds: No Currently Unemployed: No Education: High School Diploma/GED Difficulty w/ Childcare or Family Care: No Living arrangements: with family Occupation/Education: 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 Mucous membranes moist. NECK: Supple. CHEST: [Clear to auscultation. No respiratory distress.] HEART: [Regular rate and rhythm]. No murmur heard. [Normal peripheral pulses.] ABDOMEN: [Soft, nondistended], [nontender], [No rigidity or guarding] EXTREMITIES: Normal range of motion. [No edema.] SKIN: Left side of the abdominal wall or previous tick exposure site was without any overlying skin rash or any obvious retained foreign body. NEURO: [No focal deficits]. Alert and oriented [x3.] PSYCH: [Normal mood and affect.] Course Vital Signs Vital signs: Vital Signs Temperature 36.3 C L 08/05/24 23:21 Pulse Rate 65 08/05/24 23:21 Respiratory Rate 16 08/05/24 23:21 Blood Pressure 175/110 H 08/05/24 23:21 Pulse Oximetry 100 08/05/24 23:21 Oxygen Delivery Room Air 08/05/24 23:21 Temperature 36.3 C L 08/05/24 23:21 Pulse Rate 78 08/06/24 01:11 Respiratory Rate 16 08/06/24 01:11 Blood Pressure 162/94 H 08/06/24 01:11 Pulse Oximetry 99 08/06/24 01:11 Oxygen Delivery Room Air 08/05/24 23:21 MDM - Skin/Abscess/Foreign Bdy MDM Narrative Medical decision making narrative: 53-year-old female presenting for tick exposure. Tick has been present for less than 24 hours and patient removed at home but was concerned about post exposure in need for antibiotics. The site is clean without any signs of erythema, infection or obvious retained foreign body. Patient was counseled on sick board illnesses and treatment plan which will be for exposure prophylaxis with 200 mg of p.o. doxycycline. Patient is safe for discharge and follow-up with her PCP. Patient given return precautions. Medical Records Attestation: I reviewed the patient's medical records. Discharge Plan Discharge Clinical Impression: Tick bite of abdominal wall Patient Disposition: Home Condition: Stable Instructions: Antibiotic Form, Tick Bite (ED) Additional Instructions: We have treated you for tick exposure here in the ER. No obvious retained tick head/body. Follow-up with your regular doctor. Return with any emergent concerns. Patient Language: Austrian Prescriptions: No Action lorazepam 2 mg tablet 2 mg PO DAILY PRN esomeprazole magnesium 20 mg capsule,delayed release(DR/EC) 20 mg PO DAILY Qty: 30 11RF carvedilol 6.25 mg tablet 3.125 mg PO ONCE Follow-up/Referrals: Laureen,MD Tru [Primary Care Provider] - Time of Disposition: 00:50
[2024-08-06] MEDS: DOXYCYCLINE HYCLATE 100 MG TABLET 200 MG PO (00:52)
[2024-08-06 01:11] VITALS: BP 162/94; PULSE 78; RESP 16; O2SAT 99
== END 2024-08-06 01:13 | disposition home or self-care (01) ==
PROVIDERS: Emergency Provider Student in an Organized Health Care Education/Training Program; PCP Internal Medicine
DX: S30.861A Insect bite (nonvenomous) of abdominal wall, initial encounter (principal); I10 Essential (primary) hypertension; K21.9 Gastro-esophageal reflux disease without esophagitis; M17.0 Bilateral primary osteoarthritis of knee; G47.33 Obstructive sleep apnea (adult) (pediatric); F41.9 Anxiety disorder, unspecified; Z98.84 Bariatric surgery status; Z86.718 Personal history of other venous thrombosis and embolism; Z87.891 Personal history of nicotine dependence; Z79.899 Other long term (current) drug therapy; W57.XXXA Bitten or stung by nonvenomous insect and other nonvenomous arthropods, initial encounter
CPT/HCPCS: 99283; A9270

== ENCOUNTER 2024-12-12 18:33 | Emergency (ER) | payer OTHER, SELFPAY ==
--- OUTSIDE RECORDS SUMMARY | 2024-02-06 08:48 | XMS_ITS | Continuity of Care Document ---
Author Organization [facility] Address [address] [place] [address] Phone Care Team Providers Care Pipeline Gang Supervisor Name Role Phone Deacon Contreras Unavailable Unavailable Procedures Procedure Date Therapeutic Activities Neuromuscular Re-Ed Therapeutic Exercise Manual Therapy Hot or Cold Pack Therapeutic Activities Neuromuscular Re-Ed Therapeutic Exercise Hot or Cold Pack PT Evaluation Moderate Complexity Neuromuscular Re-Ed Therapeutic Exercise Advance Directives Directive Yes / No Effective Date File Name No Information Encounters Encounter Description Practice Location Reason(s) For Visit Diagnoses Date Provider Providers Copied on Encounter [facility] [address], [id number], tel:[phone] [place] No Information Jan-0 6- 4 Mudouglasl Deacon. [address] [facility], [address], [facility], [place]. tel: [phone] [place] [address] [facility] [address], [place], [place], [id number], tel:[phone] [place] No Information Nov-0 5-202 4 Muehl Deacon. [address] [facility], [facility] [address], [place], [facility], [place]. tel: [phone] Referring Provider: Connor Stevens, [address], [address]. tel:[phone], [id number], tel:[phone] [place] No Information 0 4 Muehl Deacon. [address] [facility], [facility] [address] tel:[phone] Referring Provider: Connor Stevens [address] [address]. tel:[phone], [id number], tel:[phone] [place] No Information 4 Jan Worthy. [address] [facility], [address] tel: [phone] Referring Provider: Connor Stevens, [address] [address]. tel:[phone] Family History Family Member Type Diagnosis Age At Onset No Information Payers Payer name Insurance type Covered alliance party ID Raphaelstarr trejo(s) Jg [id number] Social History Type Description Quantity Date Captured Comments Sex Female Smoking Status No Information Chief Complaint And Reason For Visit No Information Reason For Referral Reason For Referral No Information History Of Present Illness Encounter Date Complaint History Of Prese nt Illness No Information Functional Status Date Functional Assessmen t No Information Instructions Date Instruction Additional Infor mation No Information Assessments Type Assessment Date No Information Patient Care Teams Name Effective Dates (start - stop) Status Members No Information
--- OUTSIDE RECORDS SUMMARY | 2024-02-06 08:48 | XMS_ITS | Continuity of Care Document ---
Author Organization [facility] Address [address] [place] [address] Phone Care Team Providers Care Printer Operator Name Role Phone Deacon Contreras Unavailable Unavailable [...] Diagnoses Date Provider Providers Copied on Encounter [facility] [address], [id number], tel:[phone] [place] No Information Jan-0 6- 4 Mudouglasl Deacon. [address] [facility], [address], [facility], [place]. tel: [phone] [place] [address] [facility] [address], [place], [place], [id number], tel:[phone] [place] No Information Nov-0 5-202 4 Muehl Deacon. [address] [facility], [facility] [address], [place], [facility], [place]. tel: [phone] Referring Provider: Connor Stevens, [address], [address]. tel:[phone], [id number], tel:[phone] [place] No Information 0 4 Muehl Deacon. [address] [facility], [facility] [address] tel:[phone] Referring Provider: Connor Stevens [address] [address]. tel:[phone], [id number], tel:[phone] [place] No Information 4 Jan Worthy. [address] [facility], [address] tel: [phone] Referring Provider: Connor Stevens, [address] [address]. tel:[phone] Family History Family Member Type Diagnosis Age At Onset No Information Payers Payer name Insurance type Covered constitution party ID Raphaelstarr trejo(s) Jg [id number] Social History Type Description Quantity Date Captured [...]
--- NOTE | ~2024-12-12 | XR_ITS ---
EXAMINATION: XR chest 2V, 12/12/2024 18:52 CDT HISTORY: CHEST PAIN COMPARISON: No comparisons available. Technique: 2 views obtained. Findings: The lungs are clear, no effusion. No pneumothorax. Heart is normal size. Mediastinal and hilar contours are within normal limits. Bony thorax no acute abnormality. Impression: No acute cardiopulmonary abnormality. Reviewed, dictated and finalized at location P. Impression: No acute cardiopulmonary abnormality.
--- NOTE | 2024-12-12 18:35 | ECG_ITS ---
Test Date: 2024-12-12 18:43:39 Measurements Intervals She[place]on Rate: 71 P: 17 OR: 164 QRS: 2 QRSD: 114 T: 11 QT: 403 QTc: 440 Interpretive Statements SINUS RHYTHM INTRAVENTRICULAR CONDUCTION DELAY LOW QRS VOLTAGE IN PRECORDIAL LEADS CONSIDER INFERIOR INFARCT, AGE INDETERMINATE ABNORMAL ECG No previous ECG available for comparison Electronically Signed On 12-12-2024 19:56:05 CDT by Marlon Pierce D.O.
--- OUTSIDE RECORDS SUMMARY | 2024-12-12 18:36 | XMS_ITS | Clinical Summary ---
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 Gender Identity Not on file Sexual Orientation Not on file Last Filed Vital Signs Vital Sign Reading Time Taken Comments Blood Pressure 136/82 02/11/2020 8:09 AM OPTICAL LABORATORY MECHANIC Pulse 61 02/11/2020 8:09 AM OPTICAL LABORATORY MECHANIC Temperature 36.8 C (98.3 F) 02/11/2020 8:09 AM OPTICAL LABORATORY MECHANIC Respiratory Rate 18 02/11/2020 8:09 AM OPTICAL LABORATORY MECHANIC Oxygen Saturation 98% 02/11/2020 8:09 AM OPTICAL LABORATORY MECHANIC Inhaled Oxygen Concentration - - Weight 145.2 kg (320 lb) 02/11/2020 8:09 AM OPTICAL LABORATORY MECHANIC Height - - Body Mass Index - - Plan of Treatment Health Maintenance Due Date Last Done Comments Hepatitis C Virus (HCV) Screening 1972 TdaP Immunization 1972 Hepatitis B Immunization (1 of 3 - 19+ 3-dose series) 10/30/1991 Pap Smear 1993 Cervical Cancer Screening (CCS) 2002 HPV/Cotest 2002 Cologuard 2017 Colonoscopy 2017 Colorectal Cancer Screening 2017 Immunochemical Fecal Occult Blood 2017 Pneumococcal Immunization (50+ years) (1 of 1 - PCV) 2022 Zoster Immunization (1 of 2) 2022 Influenza Immunization (#1) 11/01/202412/02, 12/19/2017, 12/12/2016, Additional history exists SARS-COV-2 Immunization ( - season) 2024 Respiratory Syncytial Virus (RSV) Immunization (Adult) (1 - 1-dose 75+ series) 10/30/2047 Human Papillomavirus (HPV) Immunization Aged Out No longer eligible based on patient's age to complete this topic Meningococcal Immunization (ACWY) Aged Out No longer eligible based on patient's age to complete this topic Rotavirus Immunization Aged Out No lo nger eligible based on patient's age to complete this topic Insurance LUDIVINA JACOB Care Teams Research Coordinator Relationship Specialty Start Date End Date Laura Solitario MD [address] [place] [address] PCP - General Family Medicine 02/11/20
--- OUTSIDE RECORDS SUMMARY | 2024-12-12 18:36 | XMS_ITS | Encounter Summary ---
Author Organization [facility] Address [address] [place] [address] Care Team Providers Care Draughtsman Name Role Phone Laura Baugh MD Primary Care Provider + Reason for Visit * Reason Onset Date Comments Medical management 02/05/2022 Gave message to INGA Shields/Chayito finley Encounter Details Date Type Department Care Team (Late st Contact Info) Description 02/05/2022 Telephone [facility] Admitting [address] [place] [address] [place] [address] [place] [address] Medical management (Gave message to [...] Coronavirus/COVID-19? 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
--- OUTSIDE RECORDS SUMMARY | 2024-12-12 18:36 | XMS_ITS | Clinical Summary ---
Author Organization [facility] Address [address] [place] [address] Care Team Providers Care Mortgage Or Loan Underwriter Name Role Phone Laura Baugh MD Primary Care Provider [phone] Source Comments [facility],non-owned Affiliates and Associated Physician Practices is amultiple site organization consisting of ambulatory clinics and hospital sitesin [place], [place], [place] and [place]. This disclosure is being madepursuant to the Care Everywhere program and may not contain all information available regarding this patient. Last updated 17.[facility] Allergies Active Allergy Reactions Criticality Noted Date [...] SCREENING 1972 LIPID TESTING 1972 MAMMOGRAM 1972 HIV SCREENING 10/30/1987 HEPATITIS C SCREENING 10/25/1990 DTAP/TDAP/TD VACCINES (1 - Tdap) 10/30/1991 HEPATITIS B VACCINE (1 of 3 - 19+ 3-dose series) 10/30/1991 PAP SMEAR 1993 SCREENING FOR DIABETES 07/10/2018 PNEUMOCOCCAL VACCINE 50+ (1 of 1 - PCV) 2022 ZOSTER VACCINE (1 of 2) 2022 DEPRESSION SCREENING 03/03/2024 COVID-19 VACCINE (1 - season) 2024 INFLUENZA VACCINE (#1) 2024 9, 12/12/2016, 01/15/2016, Additional history exists HIB VACCINE [...] complete this topic Insurance [employer] Care Teams Mortgage Or Loan Underwriter Relationship Specialty Start Date End Date Laura Baugh MD [address] [place] [phone] PCP - General Family Medicine 11/15/16
--- OUTSIDE RECORDS SUMMARY | 2024-12-12 18:36 | XMS_ITS | Clinical Summary ---
Author Organization [facility] Address [address] [place] [address] Care Team Providers Care Hr Manager Name Role Phone Laura Baugh MD [...] Mrx - she will upload this into [employer] for me to review. I think it [...] Date Comments Hypertension DVT (deep venous thrombosis) BILL (obstructive sleep apnea) Anxiety Social History [...] Vaccine (1 of 2) 2022 Influenza Vaccine (#1) 2024 9, 12/19/2017, 12/12/2016, Additional history exists Pneumococcal vaccine <65 Aged Out No longer eligible based on patient's age to complete this topic Insurance [employer] [place] HMO/POS [facility] Care Teams Hr Manager Relationship Specialty Start Date End Date Laura Baugh MD PCP - General 12/26/16
--- OUTSIDE RECORDS SUMMARY | 2024-12-12 18:36 | XMS_ITS | Patient Health Record ---
Author Organization [facility] As Mobile Medical Testing Address [address] [facility] [address] [place] [address] Care Team Providers Care Sales Office Assistant Name Role Phone Laureen CARRERA, Tru Primary Care Provider Un available Adryan Langford Unavailable [phone] Miguel Calles Unavailable [phone] Allergies Allergen (clinical drug ingredient) Drug/Non Drug Allergy documented on EMR Reaction Allergy Type Onset Date Status ciprofloxacin Cipro Unknown Drug Allergy Act kayla amoxicillin Amoxicillin Unknown Drug Allergy Act kayla Penicillin Unknown Drug Allergy Active Results Component Value Reference Range Flag Notes DRUG MONITOR, BENZO, QN, URI NE ([id number]) Reviewed date:04/06/2024 10:13:15 AM Interpretation: Performing Lab:CB, [facility] [id number] [facility] Samson Cuevas, Director - [id number] [facility] [address] [facility] Notes/Report: FASTING: NO Alphahydroxyalprazolam NEGATIVE <25 ng/mL Alphahydroxymidazolam NEGATIVE <50 ng/mL Alphahydroxytriazolam NEGATIVE <50 ng/mL Aminoclonazepam NEGATIVE <25 ng/mL Hydroxyethylflurazepam NEGATIVE <50 ng/mL Lorazepam 585 <50 ng/mL H medMATCH Lorazepam INCONSISTENT A Nordiazepam NEGATIVE <50 ng/mL Oxazepam NEGATIVE <50 [...] analytical performance characteristics have been determined by [facility]. It has not been cleared or approved by the FDA. This assay has been validated pursuant to the CLIA regulations and is used for clinical purposes. medMATCH(R) enables providers to identify if drug use is consistent or inconsistent with a corresponding prescribed medication(s) list. Healthcare Providers needing Interpretation assistance, please contact us at [phone] ( ) M-F, 8am to 10pm EST PRESCRIBED DRUGS, medMATCH(R ) ([id number]) Reviewed date:04/06/2024 10:13:25 AM Interpretation: Performing Lab:KS, [id number] Rabia Burks, [id number] Jenaro Viramontes MD Notes/Report: FASTING: NO medMATCH Summary Prescribed Prescribed Not Prescribed Consistent Inconsistent Inconsistent Lorazepam UDT Reviewed date:06/08/2024 04:47:19 PM Interpretation: Performing Lab: Notes/Report: THC N 0 - 50 ng/ml Cocaine N 0 - 300 ng/ml Amphetamine N 0 - 1000 ng/ml Buprenorphine (BUP) N 0 - 10 ng/ml Secobarbital (Bar) N 0 - 300 ng/ml Oxazepam (BZO) P 0 - 300 ng/ml 0-ylciwokhmv-9,2-oklwgzuz-8, 3-di phenylpyrrolidine (EDDP) N 0 - 300 ng/ml Methamphetamine (MET) N 0 - 1000 ng/ml Methylenedioxymethamphetamin e (MDMA) N 0 - 500 ng/ml Morphine (MOP 300/TQI8043) N 0 - 3 00 ng/ml Methadone (MTD) N 0 - 300 ng/ml Phencyclidine (PCP) N 0 - 25 ng/ml Nortriptyline (TCA) N 0 - 1000 ng/ml Oxycodone N 0 - 300 ng/ml x N 0 - 300 ng/ml UDT Reviewed date:04/01/2024 11:57:43 AM Interpretation: Performing Lab: Notes/Report: THC N 0 - 50 ng/ml Cocaine N 0 - 300 ng/ml Amphetamine N 0 - 1000 ng/ml Buprenorphine (BUP) N 0 - 10 ng/ml Secobarbital (Bar) N 0 - 300 ng/ml Oxazepam (BZO) P 0 - 300 ng/ml 5-hewauzwjvc-1,0-cbpczmpd-7, 3-di phenylpyrrolidine (EDDP) N 0 - 300 ng/ml Methamphetamine (MET) N 0 - 1000 ng/ml Methylenedioxymethamphetamin e (MDMA) N 0 - 500 ng/ml Morphine (MOP 300/[id number]) N 0 - 3 00 ng/ml Methadone (MTD) N 0 - 300 ng/ml Phencyclidine (PCP) N 0 - 25 ng/ml Nortriptyline (TCA) N 0 - 1000 ng/ml Oxycodone N 0 - 300 ng/ml x N 0 - 300 ng/ml Benzodiazepines Reviewed date:06/14/2024 05:10:15 PM Interpretation: Performing Lab:, [facility], [address] [place] [address], Director - [id number] Notes/Report: An exception occurred while processing this report and so it has incomplete data. Please contact [employer] for assistance. Not Medicated Consistent Not Medicated Consistent Not Medicated Consistent Not Medicated Consistent Not Medicated Consistent Medicated Consistent Not Medicated Consistent Not Medicated Consistent Not Medicated Consistent Not Medicated Consistent 7-Aminoclonazepam NEGATIVE 20.0 ng/mL Temazepam NEGATIVE 40.0 ng/mL Oxazepam NEGATIVE 40.0 ng/mL Midazolam NEGATIVE 40.0 ng/mL Lorazepam 415.6 40.0 ng/mL POSITIVE Nordiazepam NEGATIVE 40.0 ng/mL Diazepam NEGATIVE 40.0 ng/mL Clonazepam NEGATIVE 20.0 ng/mL Hydroxyalprazolam NEGATIVE 20.0 ng/mL Alprazolam NEGATIVE 20.0 ng/mL PDF Report CE_OUT_RAW_COMM ON_SRC_ORU NEED PHYSICIAN SIGNATURE Reviewed date:06/14/2024 05:10:15 PM Interpretation: Performing Lab: Notes/Report: UDT Reviewed date:08/06/2024 02:10:02 PM Interpretation: Performing Lab: Notes/Report: THC N 0 - 50 ng/ml Cocaine N 0 - 300 ng/ml Amphetamine N 0 - 1000 ng/ml Buprenorphine (BUP) N 0 - 10 ng/ml Secobarbital (Bar) N 0 - 300 ng/ml Oxazepam (BZO) P 0 - 300 ng/ml 4-khhrjxonqh-7,2-tonjpmui-1, 3-di phenylpyrrolidine (EDDP) N 0 - 300 ng/ml Methamphetamine (MET) N 0 - 1000 ng/ml Methylenedioxymethamphetamin e (MDMA) N 0 - 500 ng/ml Morphine (MOP 300/[id number]) N 0 - 3 00 ng/ml Methadone (MTD) N 0 - 300 ng/ml Phencyclidine (PCP) N 0 - 25 ng/ml Nortriptyline (TCA) N 0 - 1000 ng/ml Oxycodone N 0 - 300 ng/ml x N 0 - 300 ng/ml Validity Testing Reviewed date:08/13/2024 03:51:21 PM Interpretation: Performing Lab: Notes/Report: Not Medicated Consistent Not Medicated Consistent Not Medicated Consistent Not Medicated Consistent Specific [place] 1.017 1.003 - 1.030 pH 6.9 3.0 - 10.9 Oxidants -15 200 g/mL Creatinine 61.3 20.0 - 300.0 mg/dL Benzodiazepines Reviewed date:08/13/2024 03:51:21 PM Interpretation: Performing Lab:[address] [place] [address], [address] [place] [address], Director - [id number] Notes/Report: An exception occurred while processing this report and so it has incomplete data. Please contact [employer] for assistance. Not Medicated Consistent Not Medicated Consistent Not Medicated Consistent Not Medicated Consistent Not Medicated Consistent Medicated Consistent Not Medicated Consistent Not Medicated Consistent Not Medicated Consistent Not Medicated Consistent 7-Aminoclonazepam NEGATIVE 20.0 ng/mL Temazepam NEGATIVE 40.0 ng/mL Oxazepam NEGATIVE 40.0 ng/mL Midazolam NEGATIVE 40.0 ng/mL Lorazepam 328.9 40.0 ng/mL POSITIVE Nordiazepam NEGATIVE 40.0 ng/mL Diazepam NEGATIVE 40.0 ng/mL Clonazepam NEGATIVE 20.0 ng/mL Hydroxyalprazolam NEGATIVE 20.0 ng/mL Alprazolam NEGATIVE 20.0 ng/mL PDF Report CE_OUT_RAW_COMM ON_SRC_ORU Reason For Referral No Information Medications Medication SIG (Take, Route, Frequency, Duration) Notes Start Date End Date Status Nicotinamide Active Probiotic Active Cyanocobalamin 1000 MCG/ML Solution INJECT 1 CC INTRAMUSCULARLY ONCE A MONTH Injection; Duration: 90 Days Active LORazepam 0.5 MG Tablet 1 tablet once and and 1 tablet once a day as needed Oral Once a day; Duration: 30 days plan is to slowly taper her off of lorazepam 11/08/2024 Active Multivitamin Active Calcium Active Vitamin D2 + K1 Acti ve hydrOXYzine HCl 10 MG Tablet 1 tablet as needed Orally Once a day; Duration: 30 days 11/08/2024 Active GLP-1 Hydro Generation Manager - Kit as directed Active Magnesium Active hydrOXYzine Pamoate 25 MG Capsule 1 capsule Orally Once a day; Duration: 30 days As needed Active Social History Tobacco Use: Social History Observation Description Date Details (start date - stop date) Former Smoker NA - NA Sex Assigned At : Social History Observation Description Sex Assigned At Female Social History Miscellaneous: Social Info Question Answer Notes Advance Care Planning Are you your own decision-maker Yes Do you have Power of [facility] or [facility]? No Safety issues: Are there any firearms in the house? No Social History Social Info Question Answer Notes Household: Marital Status: Number of Adults in household: 3 Number of Children in Household: 0 Level of Education: Finished High School Drug/Alcohol: Social Info Question Answer Notes Drugs Have you used drugs other than those for medical reasons in the past 12 months? No AUDIT-C (Standard) Did you have a drink containing alcohol in the past year? Yes How often did you have six or more drinks on one occasion in the past year? Never (0 point) How many drinks did you have on a typical day when you were drinking in the past year? 1 or 2 drinks (0 point) How often did you have a drink containing alcohol in the past year? 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 Den ies Do you drink alcohol? No Problems Problem Type SNOMED Code ICD Code Onset Dates Problem Status W/U Status Risk Notes Problem Obstructive sleep apnea syndrome (disorder) (07983221) Obstructive sleep apnea (adult) (pediatric) (G47.33) Active confirmed Problem Generalized anxiety disorder (51472776) ASHLEY (generalized anxiety disorder) (F41.1) Active confirmed Problem Hypertension (06498823) Hypertension (I10) 0 Active confirmed Vital Signs Heart Rate 66 /min 11/08/2024 Height-cm 162.56 cm 11/08/2024 Blood pressure diastolic 73 mm Hg 11/08/2024 Weight-kg 102.06 kg 11/08/2024 Height 64 in 11/08/2024 Blood pressure systolic 111 mm Hg 11/08/2024 Weight 225 lbs 11/08/2024 BMI 38.62 kg/m2 11/08/2024 Encounters Encounter Location Date Provider Diagnosis [facility], [address] [address] [address] 04/01/2024 Miguel Clubb ASHLEY (generalized anxiety disorder) F41.1 [facility] [address] [address] 04/12/2024 Adryan Primitivo ASHLEY (generalized anxiety disorder) F41.1 and Hypertension I10 [facility] [address] [address] 06/07/2024 Adryanvickie Nielsenam Encounter for screen ing for depression Z13.31 ; Encounter for screening for cardiovascular disorders Z13.6 ; ASHLEY (generalized anxiety disorder) F41.1 and Hypertension I10 [facility] [address] [facility] [address] [address] 08/06/2024 Adryan Primitivo ASHLEY (generalized anxiety disorder) F41.1 ; Negative depression screening Z13.31 ; Encounter for screening for cardiovascular disorders Z13.6 and Obstructive sleep apnea (adult) (pediatric) G47.33 [facility] [place] [id number] [facility] [address] [address] 11/08/2024 Adryan Primitivo ASHLEY (generalized anxiety disorder) F41.1 ; Obstructive sleep apnea (adult) (pediatric) G47.33 and Hypertension I10 [facility] [address] [facility] [address] [address] 11/05/2024 Adryan Primitivo [facility] [address] [address] 11/05/2024 Adryan Primitivo Assessments Encounter Date Diagnosis (ICD Code) Assessment Notes Treatment Notes Treatment Clinical Notes Section Notes 04/01/2024 ASHLEY (generalized anxiety disorder) (ICD-10 - F41.1) 04/12/2024 ASHLEY (generalized anxiety disorder) (ICD-10 - F41.1) 04/12/2024 Hypertension (ICD-10 - I10) 06/07/2024 Encounter for screening for depression (ICD-10 - Z13.31) 08/06/2024 ASHLEY (generalized anxiety disorder) (ICD-10 - F41.1) Patient reports manageable anxiety with occasional panic attacks. Lorazepam dosage reduced to 1.5 tablets. Patient prefers tapering off medication. - Continue lorazepam at 1.5 tablets. - Consider tapering lorazepam further in three months. - Evaluate anxiety symptoms at next visit. 08/06/2024 Negative depression screening (ICD-10 - Z13.31) 11/08/2024 Obstructive sleep apnea (adult) (pediatric) (ICD-10 - G47.33) 11/08/2024 ASHLEY (generalized anxiety disorder) (ICD-10 - F41.1) Symptoms include anxiety and panic attacks, with recent improvement and fewer episodes. Patient described a panic attack last month with heart racing and fear of heart issues. Medication management includes lorazepam and hydroxyzine, with adjustments based on sedation and daily needs. - Continue lorazepam 0.5 mg tablet, 1 tablet once a day and 1 tablet once a day as needed. - Decrease hydroxyzine from 25 mg to 10 mg, 1 tablet as needed, with 2 refills. 11/08/2024 Hypertension (ICD-10 - I10) History of high blood pressure, previously managed with carvedilol. Patient stopped carvedilol about a month and a half ago due to low blood pressure readings (105/65). Blood pressure has gradually decreased with weight loss. - Monitor blood pressure at least once or twice daily for the month without medication. - Discuss blood pressure management with hot mill observer at upcoming appointment. 08/06/2024 Encounter for screening for cardiovascular disorders (ICD-10 - Z13.6) 06/07/2024 Encounter for screening for cardiovascular disorders (ICD-10 - Z13.6) 08/06/2024 Obstructive sleep apnea (adult) (pediatric) (ICD-10 - G47.33) Patient has a history of obstructive sleep apnea diagnosed 10 years ago. Symptoms have improved with weight loss. Patient interested in reassessing condition. - Order home sleep study to reassess sleep apnea. - Review results with sleep specialist. - Provide CPAP machine if necessary. 06/07/2024 ASHLEY (generalized anxiety disorder) (ICD-10 - [...] primary care physician, Dr. Zhen Lloyd, and hot mill observer. - Reinforce the importance of therapy and [...] ensure accuracy, there may be errors, including resident care manager rn inaccuracies and misspellings of medication names. This document should not be considered a verbatim record, and any discrepancies should be verified with the provider. Plan Of Treatment Next Appt Details Provider Name:Adryan Langford , 01/31/2025 02:30:00 PM, [address], [facility] [address], [place], [address], Insurance Providers Payer Name Payer Address Payer Phone Subscriber Number Group Number Insured Name Patient Relationship to Insured Coverage Start Date Coverage End Date [employer] [address] [place] [address] [id number] NIMA GARCIA Spouse - patient is the spouse of [...] B12 deficiency: No vitamin D deficiency: No Generalized anxiety disorder Hypertension, previously managed with ca rvedilol Surgical History Surgery Date(Month/Year) knee replacement bariatric surgery- SLEEVE hernia repair Hospitalization History Reason Date(Month/Year) sepsis after bariatric surgery
--- OUTSIDE RECORDS SUMMARY | 2024-12-12 18:36 | XMS_ITS | Data Portability ---
Author Organization [place] - [facility] [employer], Main Office Address [address] [place] [address] Care Team Providers Care Telecom Manager Name Role Phone STUART BAUGH Primary Care Provider [phone] STUART BAUGH Referring Provider Assessment Encounter Date Assessment Date Assessment LastModified by Organization Details LastModified Time 07/20/2024 07/20/2024 04/29/2024: Free testosterone 0.29 BUN 22 H/H 11.0/34.7 Not available 07/20/2024 09:17:58 11/25/2024 11/25/2024 04/29/2024: Free testosterone 0.29 BUN 22 H/H 11.0/34.7 Not available 11/25/2024 09:20:59 Plan of Treatment Reminders Order Date Submit Date Provider Last Modified By Organization Details Last Modified Time Details Appointments Any 15 2025 02:30P M Tru hammer MD Not available Not available Not available Lab vitamin D, 25-hydrox y, total, serum 2024 025 [email or web address] [facility], [address] [place], [address], 11/25/2024 14:58:48 CMP, serum or plasma 2024 025 [email or web address] [facility], [address] [place], [address], 11/25/2024 14:58:47 CBC w/ auto diff [address], [address] [place], [address], 11/25/2024 14:58:48 lipid panel, serum [address], [address] [place] [address], [address], 11/25/2024 14:58:48 TSH, serum or plasma [address], [address] [place] [address], [address], 11/25/2024 14:58:49 vitamin B12 + folate, serum or blood [address], [address] [place] [address], [address], 11/25/2024 14:58:49 vitamin D, 25-hydrox y, total, serum [address] [place] [address], [address] [place] [address], [address], 07/28/2024 15:08:01 CMP, serum or plasma [address] [place] [address], [address] [place] [address], [address], 07/28/2024 15:00:59 CBC w/ auto diff [address], [address] [place] [address], [address], 07/28/2024 15:01:09 lipid panel, serum [address] [place] [address], [address] [place] [address], [address], 07/28/2024 15:01:19 TSH, serum or plasma [address] [place] [address], [address] [place], [address], 07/28/2024 15:08:21 vitamin B12 + folate, serum or blood [address], [address] [place] [address], [address], 07/28/2024 15:08:12 estrogen, total, serum 2024 025 [facility], [address] [place] [address], [address], 05/04/2024 00:07:48 progester one, serum 2024 025 [facility], [address] [place] [address], [address], 04/30/2024 12:10:48 testoster one, free + total, serum 2024 025 [facility], [address] [place] [address], [address], 05/04/2024 15:10:09 TSH, serum or plasma 2024 025 [facility], [address] [place] [address], [address], 04/29/2024 10:31:15 FSH (follicle -stimulat ing hormone), serum [address], [address] [place] [address], [address], 05/19/2024 15:13:02 lh (luteiniz ing hormone), serum [address], [address] [place] [address], [address], 05/19/2024 15:13:02 vitamin D, 25-hydrox y, total, serum [address], [address] [place], [address], 05/19/2024 15:13:02 CMP, serum or plasma 2024 025 [facility], [address] [place], [address], 04/29/2024 09:54:43 CBC w/ auto diff 2024 025 [facility], [address] [place] [address], [address], 04/29/2024 09:17:36 lipid panel, serum 2024 025 [facility], [address] [place] [address], [address], 04/29/2024 09:54:38 noninvasi ve colorecta l cancer DNA + occult blood screening , QL, stool 2024 025 [facility], [address], [address], [place], [address], 05/04/2024 18:10:11 vitamin B12 + folate, serum or blood 2024 025 [email or web address] [facility], [address] [place] [address], [address], 05/19/2024 15:13:03 drug screen, urine 2023 024 [email or web address] [facility], [address] [facility], [place], [address], 11/19/2023 08:03:46 Referral gynecolog ist referral - Please call patient to schedule an appointme nt. Thank you. 2024 025 [email or web address] Vilma Lowe MD, [address], [address], [place], [address], 12/06/2024 12:03:33 Procedures upper endoscopy procedure (EGD) (PROC) - Please call patient to schedule an appointme nt. Thank you. 2024 025 [facility] Lang Montez MD, [address] [facility], [facility] [address], [place], [address], 12/06/2024 10:38:39 Surgeries None recorded. Imaging MAMMO, screening , digital, bilateral - Please call patient to schedule. 2024 025 [facility] ([facility]), [address] [place], [address], 04/29/2024 11:15:34 bone density - Please call patient to schedule. [address] ([facility]), [address] [place], [address], 07/29/2024 12:03:29 Medication Orders Voquezna 10 mg tablet 2024 025 [facility].., [id number] [place] [address] [address], [place], [address], 11/25/2024 14:57:10 Patient TargetsNo targets recorded. Patient InstructionsNo instructions recorded. 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 Thank you. Referring Physician: Tru Garduno, Internal Medicine, Encounter Date: 04/22/2024 Results Created Date Observation Date Name Description Value Unit Range Abnormal Flag Note LastModifiedBy Organization Detail LastModifiedTime 11/21/19 24 11/21/2023 DRUG MONIT OR, PANEL 3, W/CON F, URINE amphetamines NEGATI VE NG/mL <500 Not Available [facility] [address] [place], [address], 11/21/2023 15:42:47 11/21/1911/21/2023 DRUG MONIT OR, PANEL 3, W/CON F, URINE benzodiazepi brittnee POSITI VE NG/mL <100 abnormal Not Available [facility] [address] [place], [address], 11/21/2023 15:42:47 11/21/19 24 11/21/2023 DRUG MONIT OR, PANEL 3, W/CON F, URINE alphahydroxy alprazolam NEGATI VE NG/mL <25 Not Available [address] [address] [address], [place], [address], 11/21/2023 15:42:47 11/21/19 24 11/21/2023 DRUG MONIT OR, PANEL 3, W/CON F, URINE alphahydroxy midazolam NEGATI VE NG/mL <50 Not Available [address] [address] [address], [place], [address], 11/21/2023 15:42:47 11/21/19 24 11/21/2023 DRUG MONIT OR, PANEL 3, W/CON F, URINE alphahydroxy triazolam NEGATI VE NG/mL <50 Not Available [address] [address] [address], [place], [address], 11/21/2023 15:42:47 11/21/19 24 11/21/2023 DRUG MONIT OR, PANEL 3, W/CON F, URINE aminoclonaze rhoda NEGATI VE NG/mL <25 Not Available [address] [address] [address], [place], [address], 11/21/2023 15:42:47 11/21/19 24 11/21/2023 DRUG MONIT OR, PANEL 3, W/CON F, URINE hydroxyethyl flurazepam NEGATI VE NG/mL <50 Not Available [address] [address], [place], [address], 11/21/2023 15:42:47 11/21/19 24 11/21/2023 DRUG MONIT OR, PANEL 3, W/CON F, URINE lorazepam 464 NG/mL <50 high Not Available [address] [address], [place], [address], 11/21/2023 15:42:47 11/21/19 24 11/21/2023 DRUG MONIT OR, PANEL 3, W/CON F, URINE nordiazepam NEGATI VE NG/mL <50 Not Available [address], [address], 11/21/2023 15:42:47 11/21/19 24 11/21/2023 DRUG MONIT OR, PANEL 3, W/CON F, URINE oxazepam NEGATI VE NG/mL <50 Not Available [address] [address] [place], [address], 11/21/2023 15:42:47 11/21/19 24 11/21/2023 DRUG MONIT OR, PANEL 3, W/CON F, URINE temazepam NEGATI VE NG/mL <50 Not Available [address], [address], 11/21/2023 15:42:47 11/21/19 24 11/21/2023 DRUG MONIT OR, PANEL 3, W/CON F, URINE benzodiazepi brittnee comments See Bautista montaño Notes , LDT Notes Not Available [address], [address], 11/21/2023 15:42:47 11/21/19 24 11/21/2023 DRUG MONIT OR, PANEL 3, W/CON F, URINE cocaine metabolite NEGATI VE NG/mL <150 Not Available [address], [address], 11/21/2023 15:42:47 11/21/19 24 11/21/2023 DRUG MONIT OR, PANEL 3, W/CON F, URINE marijuana metabolite NEGATI VE NG/mL <20 Not Available [address] [place], [address], 11/21/2023 15:42:47 11/21/19 24 11/21/2023 DRUG MONIT OR, PANEL 3, W/CON F, URINE opiates NEGATI VE NG/mL <100 Not Available [address] [address] [place], [address], 11/21/2023 15:42:47 11/21/19 24 11/21/2023 DRUG MONIT OR, PANEL 3, W/CON F, URINE oxycodone NEGATI VE NG/mL <100 Not Available [address] [address] [place], [address], 11/21/2023 15:42:47 11/21/19 24 11/21/2023 DRUG MONIT OR, PANEL 3, W/CON F, URINE creatinine 57.7 mg/dL > or = 20.0 Not Available [address] [address] [place], [address], 11/21/2023 15:42:47 11/21/19 24 11/21/2023 DRUG MONIT OR, PANEL 3, W/CON F, URINE pH 6.4 4.5-9. 0 Not Available [address] [address] [place], [address], 11/21/2023 15:42:47 11/21/19 24 11/21/2023 DRUG MONIT OR, PANEL 3, W/CON F, URINE oxidant NEGATI VE mcg/m L <200 Not Available [address] [address] [place], [address], 11/21/2023 15:42:47 11/21/19 24 11/21/2023 DRUG MONIT [...] ess of medic al condi tions . Benzo diaze pinesuha Notes : Loraz epam detec duane is consi stent with the use of the drug Loraz epam. LDT Notes : Confi rmati on tests were devel oped and their prisca tical perfo rmanc e juan cteri stics have been deter mined by [facility]. It has not been [...] M-F, 8am to 10pm EST Not Available [facility] [address] [address], [place], [address], 11/21/2023 15:42:48 04/29/19 25 04/29/2024 scree una breas t ozzie, bilat [facility] [address] [place] [address] Patien t Name: SOCO HERNANDEZ Access ion #: [id number] Sex: F : 1970 0 Dictat ed By: Kingsley prieto Attend ing Physic sana: USMAN DOUGHERTY Orderi donya Physic sana: USMAN DOUGHERTY Exam Date: 2024 08:39 AM Exam Name: MG MEADOWS BREAST OZZIE BILAT Admitt ing Diagno sis(es ): PROCED URE: SCREEN ING MAMMOG NIKKI WITH TOMOSY NTHESI S REASON FOR EXAM: screen ing mammog nikki. No person al histor y of breast cancer or prior breast interv ention . No family histor y of breast cancer . COMPAR DANIA: MG MEADOWS BREAST OZZIE BILAT 3D on DOS: 2 [...] annual mammog nikki. ASSESS MENT: Page 1 [facility] [address] [place] [address] [phone] [id number] Patien t Name: SOCO HERNANDEZ Access ion #: [id number] Sex: F : 1970 0 Dictat ed By: Kingsley prieto Attend ing Physic sana: AMITA CHRISTOPHER Physic sana: USMAN DOUGHERTY Exam Date: 2024 08:39 AM Exam Name: MG SCRN BREAST OZZIE BILAT Admitt ing Diagno sis(es ): BIRADS : 1 - Negati ve Electr onical ly Signed by: Kingsley prieto at 2024 08:11: 02 AM Page 2 INTERFACE [facility] (Imaging) [address] [place], [address], 04/29/2024 11:13:14 04/29/1904/29/2024 MAMMO , scree una, digit al, bilat eral No observ ation record ed. [facility] [address] [place], [address], 04/29/2024 11:15:34 03/05/20 2405/03/2024 DEXA, axial skele ton [facility] [address] [place] [address] [phone] Ren solano Name: SOCO HERNANDEZ Access ion #: [id number] Sex: F : 1970 7 Locati on: RAD Attend ing Physic sana: USMAN DOUGHERTY Orderi ng Physic sana: USMAN DOUGHERTY Exam Date: 05/04/19 7:48 AM Exam Name: [...] e of -1.4. Page 1 of 2 [facility] Ren solano Name: SOCO HERNANDEZ Access ion #: [id number] Sex: F : 1970 7 Exam [...] (CT) (CT) Page 2 of 2 INTERFACE [facility] (Imaging) [address] [place] [address], [address], 05/03/2024 15:12:47 Result Notes Documentation Provider Name and Address Organization Details Recorded Time Dexa, Axial Skeleton : [address] [address] Patient Name: SOCO GODINEZ Jase Sex: F : 1970 Location: [facility] Attending Physician: TRU GARDUNO Ordering Physician: TRU GARDUNO Exam Date: 05/03/2024 7:48 AM Exam Name: XR DEXA-HIPS PELVIS SPINE Admitting Diagnosis(es): RADIOLOGY REPORT - FINAL EXAM: XR DEXA-HIPS PELVIS SPINE HISTORY: screening for osteoporosis 53-year-old female with osteoporosis screening. COMPARISON: None available. TECHNIQUE: Dual energy x-ray of absorption examination of the bilateral hips and lumbar spine was performed in AP projection. FINDINGS: Lumbar Spine (L1-L4): The mean bone mineral density is 1.213 g/cm2 hydroxyapatite, correlating with a T-score of 0.2. Bilateral hips: The mean bone mineral density is 0.827 g/cm2 calcium hydroxyapatite, correlating with a T-score of -1.4. Page 1 of 2 [facility] Patient Name: SOCO GODINEZ Sex: F : 1970 Exam Date: 05/03/2024 7:48 AM Exam Name: XR DEXA-HIPS PELVIS SPINE Admitting Diagnosis(es): Risk of major osteoporotic fracture 5%; risk of hip fracture 0.5%. IMPRESSION: 1. The patient's lumbar spine T-score is consistent with normal bone mineral density. 2. The patient's bilateral hip T-score is consistent with osteopenia. According to the World Health Organization, T-score values greater than -1.0 are normal, values between -1.0 and -2.5 are categorized as osteopenia, T-score of -2.5 or more are categorized as osteoporosis. Created and electronically signed by: Pascual Abreu MD Signed Date: 05/03/2024 2:10 PM (CT) Dictated by: Pascual Abreu MD (CT) (CT) Page 2 of 2 Not Available [facility] 05/03/2024 15:1 2:47 Problems Name Problem SNOMED Code Status Onset Date Resolution Date Notes Provider Name and Address Organization Details Recorded Time Tobacco user 646314265 Active Not Available [facility] 3 00:15:43 Radiothera py follow-up 138924515 Active Not Available [facility] 3 00:15:43 Esophageal erosions 853701883 Active Not Available [facility] 3 00:15:43 Panic attack 066061524 Active Not Available [facility] 3 00:15:43 Current tear of medial cartilage AND/OR meniscus of knee Active Not Available [facility] 3 00:15:43 Knee pain Active Not Available [facility] 3 00:15:43 Bronchitis 14545192 Active Not Available [facility] 3 00:15:43 Sinusitis 11043828 Active Not Available [facility] 3 00:15:43 Hiatal hernia with gastroesop hageal reflux 659268039 Active Not Available [facility] 3 00:15:44 Umbilical hernia 054316428 Active Not Available [facility] 3 00:15:44 Spasm 04029026 Active Not Available [facility] 3 00:15:44 Anxiety 50088299 Active Tru clements MD [address], [facility] [address], [place], [address] , [facility] 5 09:21:03 Sprain of knee 95943864 Active Not Available [facility] 3 00:15:44 Chondromal acia 87897597 Active Not Available [facility] 3 00:15:44 Terminal esophageal web 57554947 Active Not Available [facility] 3 00:15:44 Cyst of ovary 60903237 Active Not Available [facility] 3 00:15:44 Hiatal hernia 93963055 Active Not Available [facility] 3 00:15:44 Obstructiv e sleep apnea syndrome 48654788 Active 2016 Not Available [facility] 3 00:15:44 Vitamin D deficiency 69547246 Active 2016 Tru clements MD [address] [facility], [address] [address], [place], [address] , [facility] Axial GROUP [facility] 5 09:21:03 Pain of bilateral knee joints 8015305098656 04 Active 2021 Not Available [facility] 3 00:15:44 Dizziness 226577848 Active 2022 Not Available [facility] 3 00:15:44 Acute conjunctiv itis 67085685 Active 2022 Not Available [facility] 3 00:15:44 Cough 01015565 Active 2022 Stuart Baugh MD [address], [facility] [address], [place], [address] , [facility] 3 13:18:08 Pain of left shoulder joint 1193444051727 9109 Active 2023 CLIFTON Robertson [address], [address], [place], [address] , [facility] 4 10:29:27 Insomnia 963189602 Active 2023 CLIFTON Robertson [address], [address], [place], [address] , [facility] 4 15:27:31 Essential hypertensi on 28609626 Active 2024 Tru clements MD [address], [address], [place], [address] , [facility] 5 15:14:52 Gastroesop hageal reflux disease without esophagiti s 276808500 Active 2024 Tru clements MD [address], [address], [place], [address] , [facility] 5 09:21:03 Serum vitamin B12 below reference range 869878662 Active 2024 Tru clements MD [address], [address], [place], [address] , [facility] 5 09:21:03 Anemia 237647043 Active 2024 Tru clements MD [address], [address], [place], [address] , [facility] 5 12:09:00 Injury of foot 224683743 Active 2024 Jenni Merino MA null, [facility] 5 14:48:36 Injury of foot 605632518 Active 2024 Jenni Merino MA null, [place] [facility] 5 14:52:16 Gastroesop hageal reflux disease 933042073 Active 2024 Tru clements MD [address], [address], [place], [address] , [facility] [employer] [facility] 14:55:16 Problem Notes None recorded. Procedures Surgical History Date Name Laterality Status Provider Name and Address Organization Details Recorded Time Knee Replacement completed Marissa Souza lakeishaEMILY moore [facility] [employer] 07/20/2024 12:01:52 Tubal Ligation completed Bella Thompson MA [facility] [employer] [facility] 04/22/2024 12:01:20 Imaging Results None recorded. Procedure Notes None recorded. Medical Equipment None Reported. Allergies Allergen ID Allergen Name Allergen Category Reaction Reaction Severity Criticality Documentation Date Start Date Code Code System Note Provider Name and Address Organization Details Recorded Time Product containin g penicilli n (product) medicatio n Not available Not available Not available 05/01/2022 91708 8001 SNOMED Not Available [facility] 3 08:14:06 ciproflox acin medicatio n myalgias (muscle pain) Not available Not available 05/01/2022 2551 RxNorm Not Available [facility] 3 08:14:06 Medications Name Sig Start Date [...] TABLET BY MOUTH ONCE A DAY active Has not taken in about a month due dizzines s and low BP Not Available Not Available Not Available Kenalog 40 mg/mL suspensio n for injection 1 ml IM x 1 12/21 completed [facility] 85543-28 61-01 Not Available Not Available Not Available [...] Not Available Not Available No t Available lorazepam 0.5 mg tablet TAKE 1 TABLET BY MOUTH ONCE A DAY NEEDED active Not Available Not Available No t [...] Not Available lorazepam 1 mg tablet TAKE 1 TABLET BY MOUTH EVERYDAY AT BEDTIME 11/25 completed Not Available Not Available Not Available methylpre dnisolone 4 mg tablets in a dose pack TAKE 6 TABLETS ON DAY 1 DIRECTED ON PACKAGE AND DECREASE BY 1 TAB EACH DAY FOR A TOTAL OF 6 DAYS 09/10 completed Not Available Not Available Not Available hydroxyzi ne HCl 10 mg tablet TAKE 1 TABLET BY MOUTH EVERY DAY NEEDED active Not Available Not Available No t Available hydrocodo ne 7.5 mg-acetam inophen 500 mg tablet 1 po qday prn 07/22 completed Not Available Not Available Not Available esomepraz ole magnesium 20 mg capsule,d elayed release TAKE 1 CAPSULE BY MOUTH EVERY DAY 04/22 completed Not Available Not Available Not Available hydroxyzi ne pamoate 25 mg capsule TAKE 1 CAPSULE BY MOUTH EVERY DAY NEEDED 11/25 completed Not Available Not Available Not Available Bactrim DS 800 mg-160 mg tablet [...] Not Available Nascobal 500 mcg/spray nasal spray [place] 1 spray every week by intranas al [...] Not Available Not Available No t Available Voquezna 10 mg tablet Take 1 tablet every day by oral route as needed for 90 days. 2024 active Not Available Not Available Not Avai lable Zepbound 5 mg/0.5 mL subcutane ous pen injector INJECT 1 PEN (5MG) SUBCUTAN EOUSLY EVERY WEEK. active Not Available Not Available No t Available Zepbound 2.5 mg/0.5 mL subcutane ous pen injector INJECT 2.5MG UNDER THE SKIN WEEKLY active Not Available Not Available No t Available Vitals Date Recorded Body height Body mass index (BMI) Body weight Body temperature Heart rate Oxygen saturation Oxygen saturation in Arterial blood by Pulse oximetry Pain severity - 0-10 verbal numeric rating [Score] - Reported Systolic And Diastolic Provider Name and Address Organization Details Last Updated DateTime 5 165.1 cm 38.3 kg/m2 444782. 25 g 98.2 [degF] 51 /min 99 % 99 % 0 140/84 mm[Hg] OBINNA Castano - S ND [facility] 5 11:55:35 Date Recorded Body height Body mass index (BMI) Body weight Body temperature Heart rate Systolic And Diastolic Provider Name and Address Organization Details Last Updated DateTime 5 165.1 cm 38.6 kg/m2 073483. 43 g 97.6 [degF] 60 /min 132/76 mm[Hg] EMILY Rodney [employer] 5 12:03:34 Date Recorded Body height Body mass index (BMI) Body weight Body temperature Heart rate Oxygen saturation Oxygen saturation in Arterial blood by Pulse oximetry Systolic And Diastolic Provider Name and Address Organization Details Last Updated DateTime 4 165.1 cm 36.1 kg/m2 23176.5 4 g 100 [degF] 70 /min 100 % 100 % 124/86 mm[Hg] Judith Dinero RN AL [employer] [facility] [employer] 4 10:30:43 Date Recorded Body height Body mass index (BMI) Body weight Body temperature Oxygen saturation Oxygen saturation in Arterial blood by Pulse oximetry Heart rate Pain severity - 0-10 verbal numeric rating [Score] - Reported Systolic And Diastolic Provider Name and Address Organization Details Last Updated DateTime 5 165.1 cm 37.1 kg/m2 808331. 1 g 97.6 [degF] 97 % 97 % 68 /min 0 110/72 mm[Hg] Bella Thompson MA AL [employer] 5 14:17:28 Social History Question Answer Notes LastModified by Organizat ion Details LastModified Time Tobacco Smoking Status Former Smoker quit 2015 EMILY Rodney coco, San[place] [facility] [employer] 07/20/2024 12:01:38 Do You Have An Advance Directive? No [id number] Information not available 05/01/2022 What Is Your Level Of Caffeine Consumption? Occasional [id number] Information not available 05/01/2022 In The 14 Days Before Symptom Onset, Have You Had Close Contact With A Laboratory-confi rmed COVID-19 While That Case Was Ill? No [id number] Information not available 05/01/2022 In The 14 Days Before Symptom Onset, Have You Had Close Contact With A Person Who Is Under Investigation For COVID-19 While That Person Was Ill? No [id number] Information not available 05/01/2022 What Type Of Diet Are You Following? SPECIFIC Keto [id number] Information not available 05/01/2022 Have There Been Any Changes To Your Family Or Social Situation? No Information not available 04/22/2024 When Did You Quit Smoking? 6-10yearssincelast cigarette [id number] Information not available 05/01/2022 Do You Use Insect Repellent Routinely? No Information not available 04/22/2024 Where [facility] You Live[facility] Information not available 04/22/2024 Do You Have A Medical Power Of Gaming Dealer? No [id number] [id number] Information not available 05/01/2022 What Was The Date Of Your Most Recent Tobacco Screening? 11/25/2024 Information not available 11/25/2024 How Many Children Do You Have? 4 [...] Age Did You Start Smoking Tobacco? 15 [id number] Information not available 05/01/2022 Are You Passively Exposed To Smoke? No Information not available 04/22/2024 Are There Any Smokers In Your House? No Information not available 04/22/2024 Do You Use Sunscreen Routinely? No Information not available 04/22/2024 Have You Recently Traveled Abroad? No [id number] Information not available 05/01/2022 Do You Have Any Dietary Restrictions? No [id number] Information not available 05/01/2022 Sex: Unknown Functional Status Question Answer Note LastModified by Organizat ion Details LastModified Time Do you use any illicit or recreational drugs? No Information not available 04/22/2024 Do you or have you ever used any other forms of tobacco or nicotine? No Information not available 04/22/2024 What is your level of alcohol consumption? None [id number] Information not available 05/01/2022 Are you currently employed? Yes Information not available 04/22/2024 What is your exercise level? Occasional [id number] Information not available 05/01/2022 Mental Status Question Answer Note LastModified by Organization D etails LastModified Time Do you feel stressed (tense, restless, nervous, or anxious, or unable to sleep at night)? [id number] Information not available 04/22/2024 Family History Relationship [...] Date of Last Mammogram Date of LMP Date of Last Pap Current Control Method Tubal Ligat ion Obstetrics History GPAL:G 4 P 4 0 0 4 Type Value Multiple Births 0 Full Term 4 Induced 0 Spontaneous 0 Premature 0 Living 4 Ectopics 0 Total 4 Immunizations Vaccine Type Date Status Note Provider Nam e and Address Organization Details Recorded Time Tdap 5 completed Jenni Merino MA null, Sanrad [facility] [employer] 10/18/2024 14:52:43 Influenza, MDCK, quadrivalent, PF 8 completed EMILY Rodney null, Sanrad [facility] [employer] 10/18/2024 10:27:21 Influenza, split virus, trivalent, preservative 2 completed EMILY Rodney null, Sanrad [facility] [employer] 10/18/2024 10:27:21 Influenza, split virus, quadrivalent, PF 9 completed Not Available [facility] 12/24/2022 00:15:44 Influenza, split virus, quadrivalent, preservative 6 completed Not Available [facility] 12/24/2022 00:15:44 Influenza, split virus, quadrivalent, PF 5 completed Not Available [facility] 12/24/2022 00:15:44 Influenza, split virus, quadrivalent, PF 7 completed Not Available [facility] 12/24/2022 00:15:44 Influenza, split virus, trivalent, PF 3 completed EMILY Rodney [place] [facility] [employer] [facility] 10/18/2024 10:27:21 Past Encounters Encounter ID Performer Location Encounter Start Date Encounter Closed Date Diagnosis/Indication Diagnosis SNOMED-CT Code Diagnosis ICD10 Code Diagnosis IMO Codes Diagnosis Note [id number] Stuart Baugh MD [facility] [address] [place] [address] [address] [place] [address] 06/22/2020 00:00:00 01/02/2022 14:32:00 [id number] Stuart Baugh MD [facility] Primary Care [address] [place] [address] 02/06/2021 00:00:00 02/26/2021 15:32:58 [id number] Stuart Baugh MD [facility] Primary Care [address] [place] [address] 05/08/2021 00:00:00 01/02/2022 14:27:48 [id number] Stuart Baugh MD [facility] Primary [address] [place] [address] 10/30/2021 00:00:00 10/30/2021 21:54:27 [id number] Stuart Baugh MD [facility] Primary [address] [place] [address] 01/16/2022 00:00:00 01/16/2022 18:19:25 [id number] SPIKE Lira [facility] Primary Care [address] [place] [address] 08/23/2022 08:05:01 08/23/2022 17:26:37 Anxiety 96173476 F41.9 stable, continue ativan Dizziness 218136584 R42 stable, possibly d/t decreased caffeine absorption continue bp meds as ordered Medication monitoring 39 0404506 Z51.81 [id number] Stuart Baugh MD [facility] Primary [facility] [address] [facility] [address] [place] [address] 09/10/2022 09:46:23 09/10/2022 10:20:59 Dietary management surveillance 960286231 Z71.3 ok to start topiramate 50 mg qday Anxiety 66079687 F41.9 stable on lorazepam 2 mg po bid prnUDS appropriat e 08/2022f/u in 6 months or sooner if needed [id number] Stuart Baugh MD [facility] Primary [facility] [address] [facility] [address] [place] [address] 03/13/2023 09:17:31 03/13/2023 10:11:20 Cough 55662113 R05.9 call/retur n if no improvemen t in 1-2 days or sooner if neededrevi ewed s/s that warrant urgent/neha rgent eval in meantime Anxiety 49784620 F41.9 stable on lorazepam 2 mg po bid prnUDS appropriat e 08/2022no refill neededf/u in 6 months or sooner if needed History of bariatric surgical procedure 542556423 Z98.[address] Carlos Alvarez q3 months for labs and f/urefill sent [id number] SPIKE Robertson-C [facility] Primary [facility] [address] [facility] [address] [place] [address] 09/16/2023 10:03:50 09/16/2023 11:01:03 Long-term drug therapy 932109268 Z79.899 Pt denies any lending, selling, or borrowing of medication s. Denies any cp, sob, palpitatio ns, or unusual weight loss.Revie wed controlled substance agreement requiremen ts. Refill given.[place] checked today. Anemia screening 07 Z13.0 Referral needed 12607526 9 Z76.89 Pain of le ft shoulder joint 1790312419 8400570 M25.823 [id number] CLIFTON Mendez [facility] Primary [facility] [address] [facility] [address] [place] [address] 11/06/2023 16:23:01 11/06/2023 16:39:09 [id number] Drew Gerard, [employer] [facility] Primary Care Henok england [address] [facility] [address] [place] [address] 11/12/2023 10:17:40 11/12/2023 11:39:31 Long-term drug therapy 918171448 Z79.899 Pt denies any lending, selling, or borrowing of medication s. Denies any cp, sob, palpitatio ns, or unusual weight loss.Revie wed controlled substance agreement requiremen ts. Refill given.[place] checked today.last time she took the lorazepam was 11/10 (half dose) Pre-surger y evaluation 160576532 Z01.818 EKG and labs done through surgeon-[facility] L[facility] clearance form filled out [id number] Tru clements MD [facility] [address] [facility], [address] [place] [address] 04/22/2024 11:27:53 04/22/2024 12:49:27 Screening - NAD 746814752 Z13.9 C-scope: Needs to do cologuard Mammogram: Get this PAP: See OB DEXA: Get this Get yearly flu shot, get tdapCan do Shingrix vaccineCan do COVID 19 boosters RTC in 3 months, do labs, ER if worse Screening mammography 24 618896 Z12.31 Screening for osteoporosis 068224403 Z13.820 Z78.0 Gynecologi c examination 69945047 Z01.419 Screening for malignant neoplasm of colon 572419992 Z12.11 Essential hypertension 81603766 I10 On coregGet labs Gastroesop hageal reflux disease without esophagitis 066172967 K21.9 On famotidine On omeprazole Declines any EGD, does understand s the risks for not doing the EGD History of bariatric surgical procedure 224816654 Z98.[address] [facility] Vitamin D deficiency 347 75476 E55.9 Serum dillon min B12 below reference range 222359133 R79.89 Anxiety 26312395 F41.9 On lorazepam 2mg dailyNot taking the hydroxyzin e as she has 'dreams with itNot suicidal or homicidalN ow must see psychiatry [id number] Tru clements MD [facility] [address] [facility], [facility] [address] [place] [address] 07/20/2024 11:37:11 07/20/2024 12:29:27 Screening - NAD 292811280 Z13.9 C-scope: Cologuard 04/27/2024 : Negative Mammogram: 04/29/2024 : Neg PAP: See OB referred last OV 04/22/2024 DEXA: 05/03/2024 : Osteopenia , more ca and vit d Get yearly flu shot, get tdapCan do Shingrix vaccineCan do COVID 19 boosters RTC in 3 months, do labs, ER if worse, she did verbalize her understand ing of the above Essential hypertension 69245725 I10 On coregGet labs Gastroesop hageal reflux disease without esophagitis 570459715 K21.9 On famotidine On omeprazole Declines any EGD, does understand s the risks for not doing the EGD History of bariatric surgical procedure 313410340 Z98.[address] [facility] discuss use of GLP-1 but she is reluctant to take this as she has a relative who ended with 'gastropar esis' and had to have a pacemaker in the stomach Vitamin D deficiency 347 23463 E55.9 Serum dillon min B12 below reference range 459540507 R79.89 Anxiety 64904733 F41.9 On lorazepam 1mg take 1.5 tabs dailyNot taking the hydroxyzin e as she has 'dreams with itNot suicidal or homicidalS ees Dr Langford Anemia 115358209 D64.9 14460230 More iron in diet, get labs [id number] Tru clements MD [facility] [address] [facility], [facility] [address] [place] [address] 11/25/2024 14:01:46 11/25/2024 15:00:30 Screening - NAD 933000856 Z13.9 C-scope: Cologuard 04/27/2024 : Negative Mammogram: 04/29/2024 : Neg PAP: See OB referred last OV 04/22/2024 DEXA: 05/03/2024 : Osteopenia , more ca and vit d Get yearly flu shot, get tdapCan do Shingrix vaccineCan do COVID 19 boosters RTC in 3 months, do labs, ER if worse, she did verbalize her understand ing of the above Essential hypertension 92882140 I10 On coregGet labsStates today 11/25/2024 that she did stop this as her BP was low now that she has started on Zepbound and lost weight, she states that the Zepbound was started by her Obesity MD and she is now to start 5mg weekly History of bariatric surgical procedure 302124974 Z98.[address] Gonzalez in [facility] discuss use of GLP-1 but she is reluctant to take this as she has a relative who ended with 'gastropar esis' and had to have a pacemaker in the stomach Vitamin D deficiency 347 99764 E55.9 Serum dillon min B12 below reference range 706717762 R79.89 Anxiety 97557733 F41.9 On lorazepam 1mg take 1.5 tabs dailyNot taking the hydroxyzin e as she has 'dreams with itNot suicidal or homicidalS ees Dr Langford Anemia 607619928 D64.9 21375204 More iron in diet, get labs Gastroesop hageal reflux disease 135010311 K21.9 28148680 Not on famotidine Not on omeprazole Declines any EGD, does understand s the risks for not doing the EGD OV 11/25/2024 :States that has tried and failed nexium, prilosecGe t EGD doneGet on VoquenzaAl l side effects explained Health Concerns Section Related Observation LastModified by Organization Detai ls LastModified Time None Recorded Concern Status LastModified by Organization Details LastModified Time None Recorded Advance Directives Directive N: Payers Insurance Date Sequence Insurance Name Policy Number Policy Ott Covered Member ID Ott Member ID Guarantor Name 11/22/2024 1 [employer] (POS) [id number] Malachi Godinez [id number] [place] Godinez Notes Date Note Type Note Provider Name and Address Organization Details Recorded Time 11/12/2023 text/html pt is here for surg clearance CLIFTON Robertson [address], [address], [place], [address], [employer] 11/12/2023 10:59:06 04/22/2024 text/html OV 04/22/2024:Here to establish care Present Hx:HTNGERDAnxiet y Here to discuss above and also get labs, she would like to get labs for also 'menopause' Tru Garduno MD [address], [address], [place], [address], [employer] 04/22/2024 18:43:31 07/20/2024 text/html OV 04/22/2024:Here to establish care Present Hx:HTNGERDAnxiet y Here to discuss above and also get labs, she would like to get labs for also 'menopause' OV 07/20/2024: Here for her f/u apt, she is doing well today Tru Garduno MD [address], [address], [place], [address], [employer] 07/20/2024 17:49:06 11/25/2024 text/html OV 04/22/2024:Here to establish care Present Hx:HTNGERDAnxiet y Here to discuss above and also get labs, she would like to get labs for also 'menopause' OV 07/20/2024: Here for her f/u apt, she is doing well today OV 11/25/2024: Here for her f/u apt, she feels well todayShe states that the PPI she has taken for GERD are not helping, she is now also on GLP-1 Tru Garduno MD [address], [address], [place], [address], [employer] 11/25/2024 18:49:54 OBGyn Episode No OBEpisode recorded.
[2024-12-12 18:37] VITALS: BP 142/86; PULSE 76; RESP 20; TEMP 37; O2SAT 100
[2024-12-12 19:02] LABS: Hematocrit 38.7 % (37.0-47.0); Hemoglobin 12.6 g/dL (12.0-15.0); Immature Granulocyte Percent A 0.2 % (0-0.5); Lymphocytes Absolute Auto 2.05 K/mm3 (0.9-3.2); Mean Corpuscular HGB Conc 32.6 g/dl (32-36); Mean Corpuscular Hemoglobin 27.0 pg (26-34); Mean Corpuscular Volume 83.0 fl (80-100); Nucleated Red Blood Cells Absolute Auto 0.000 K/mm3 (0.0-0.012); Nucleated Red Blood Cells Perc 0.0 % (0.0-0.2); Platelet Count Result 194 k/mm3 (150-375); Red Blood Count 4.66 M/mm3 (4.2-5.4); White Blood Count 6.6 K/mm3 (4.5-10.0)
[2024-12-12 19:13] LABS: INR 1.0; Prothrombin Time 13.1 Seconds (11.1-14.7)
[2024-12-12 19:14] LABS: Partial Thromboplastin Time 40.5 Seconds (22.3-36.8)
[2024-12-12 19:18] LABS: Alanine Aminotransferase 17 U/L (6-35); Albumin Level 4.2 g/dL (3.5-5.1); Alkaline Phosphatase 60 U/L (38-126); Anion Gap 11 mmol/L (4-12); Aspartate Amino Transferase 28 U/L (14-36); Bilirubin,Total 0.4 mg/dL (0.2-1.3); Blood Urea Nitrogen 24 mg/dL (7-17); Calcium 9.5 mg/dL (8.4-10.2); Carbon Dioxide 23 mmol/L (22-30); Chloride 103 mmol/L (98-107); Estimated CRCL calculation 99 ml/min; Estimated Glomerular Filt Rate > 60; Glucose 79 mg/dL (65-110); Lipase 70 U/L (23-300); Potassium 3.8 mmol/L (3.4-5.0); Sodium 137 mmol/L (137-145); Total Protein 7.4 g/dL (6.3-8.2)
[2024-12-12 19:25] LABS: Troponin I < 0.012 ng/mL (0.000-0.034)
--- NOTE | 2024-12-12 22:10 | ECG_ITS ---
Test Date: 2024-12-12 22:12:36 Measurements Intervals Jackson Rate: 54 P: 32 CT: 204 QRS: 9 QRSD: 116 T: 12 QT: 435 QTc: 414 Interpretive Statements SINUS BRADYCARDIA BORDERLINE AV CONDUCTION DELAY CONSIDER INFERIOR INFARCT, AGE INDETERMINATE BASELINE ARTIFACT- I, II, III, AVR, AVL ABNORMAL ECG Compared to ECG 12/12/2024 18:43:39 HEART RATE HAS DECREASED Electronically Signed On 12-13-2024 07:54:33 CDT by Marlon Pierce D.O.
[2024-12-12 22:38] LABS: Troponin I < 0.012 ng/mL (0.000-0.034)
--- NOTE | 2024-12-12 23:16 | PC.NURSE ---
pt refused to wear gown
--- NOTE | 2024-12-12 23:36 | ED.CHESTPAIN ---
HPI - Chest Pain General Chief Complaint: Chest Pain Stated Complaint: CHEST PAIN SINCE 1800 Time Seen by Provider: 12/12/24 23:22 History of Present Illness HPI narrative: Patient is a 54-year-old female presents to the ER with chest pain. She reports she is on a GLP 1 and thinks her symptoms may have been related to digestion issues. Patient reports her symptoms have now resolved at time of examination. She reports prior to experiencing the chest pain she is eating spicy food and drank a [employer] drink. Patient endorses a history of high blood pressure, which has recently resolved and she no longer takes medication. She denies any shortness of breath, lower extremity swelling, cough or upper respiratory symptoms. Related Data Home Medications ?Medication ?Instructions ?Recorded ?Confirmed ?Last Taken ?Type lorazepam 2 mg tablet 2 mg PO DAILY PRN 02/19/19 06/17/23 Unknown History carvedilol 6.25 mg tablet 3.125 mg PO ONCE 10/16/22 06/17/23 Unknown History Allergies Allergy/AdvReac Type Severity Reaction Status Date / Time erythromycin base Allergy Intermediate Nausea and Verified 12/12/24 18:34 Vomiting Penicillins Allergy Intermediate Nausea and Verified 12/12/24 18:34 Vomiting amoxicillin (From Amoxil) Allergy Rash Verified 12/12/24 18:34 Review of Systems Review of Systems: All systems reviewed & are unremarkable except as noted in HPI and below PMFSH Past Medical History Medical History Hernia Degenerative arthritis of knee, bilateral H/O blood clots Bilateral bunions History of deep venous thrombosis (DVT) of distal vein of left lower extremity BILL on CPAP Osteoarthritis involving multiple joints on both sides of body Morbid obesity with BMI of 50.0-59.9, adult Primary hypertension GERD (gastroesophageal reflux disease) Arthritis Anxiety Surgical History Surgical History History of hernia surgery History of sleeve gastrectomy Hx of knee surgery 05/26/2015 Arthroscopy w/ chondroplasty, LT [place]; two previous arthroscopies on the right Family History Family History Grandparent No problems noted. Grandparent Cerebrovascular accident Grandparent No problems noted. Grandparent Carcinoma of colon Social History Social History Smoking packs per day: 2 Smoking cigarettes per day: 40.0 Years smoked: 3 Smoking pack-years: 6.00 Smoking status: Former smoker Alcohol intake: never Substance use: never Do You Feel Safe in your Home?: Yes Lack of Transportation: No Lack of Food: Never True Current Housing: I Have Housing Concerned About Future Housing: No Difficulty Paying Gas/Electric Bills: No Difficulty Paying for Meds: No Currently Unemployed: No Education: High School Diploma/GED Difficulty w/ Childcare or Family Care: No Living arrangements: with family Occupation/Education: occupation 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 HEAD: Normocephalic, atraumatic. NECK: Supple. No adenopathy, no masses. RESPIRATORY: Airway patent, respirations nonlabored. Clear to auscultation bilaterally, no rales, rhonchi, wheezing. CARDIOVASCULAR: Regular rate and rhythm without murmurs, rubs, or gallops. Peripheral pulses 2+ and equal bilaterally. ABDOMINAL: Soft, nontender, nondistended, no hepatosplenomegaly. Normoactive BS. MUSCULOSKELETAL: Moves all extremities. Strength/ROM intact without gross deformities. SKIN: Warm, dry, normal color. No rashes. NEURO: A&O X3. Speech clear. Cranial nerves II-XII intact. No ataxic movements. PSYCHIATRIC: Appropriate mood and affect. Normal interaction. Course Vital Signs Vital signs: Vital Signs Temperature 37.0 C 12/12/24 18:37 Pulse Rate 76 12/12/24 18:37 Respiratory Rate 20 12/12/24 18:37 Blood Pressure 142/86 H 12/12/24 18:37 Pulse Oximetry 100 12/12/24 18:37 Oxygen Delivery Room Air 12/12/24 18:37 Temperature 37.0 C 12/12/24 18:37 Pulse Rate 76 12/12/24 18:37 Respiratory Rate 20 12/12/24 18:37 Blood Pressure 142/86 H 12/12/24 18:37 Pulse Oximetry 100 12/12/24 18:37 Oxygen Delivery Room Air 12/12/24 18:37 MDM - Chest Pain MDM Narrative Medical decision making narrative: Patient is a 54-year-old female presents to the ER with chest pain. She reports she is on a GLP 1 and thinks her symptoms may have been related to digestion issues. Patient reports her symptoms have now resolved at time of examination. She reports prior to experiencing the chest pain she is eating spicy food and drank a [employer] drink. Patient endorses a history of high blood pressure, which has recently resolved and she no longer takes medication. She denies any shortness of breath, lower extremity swelling, cough or upper respiratory symptoms. Labs Ordered: CBC, CMP, troponin, PTT, INR, lipase Imaging Ordered: Chest x-ray Medications Ordered: None necessary Results: Patient's chest x-ray indicates No acute cardiopulmonary abnormality. Diagnosis: Atypical chest pain, GERD Risks: HEART score: low risk HEART Score for Major Cardiac Events from [employer] on 12/12/2024 All calculations should be rechecked by clinician prior to use RESULT SUMMARY: 3 points Low Score (0-3 points) Risk of MACE of 0.9-1.7%. INPUTS: History ?> 1 = Moderately suspicious EKG ?> 0 = Normal Age ?> 1 = 45-64 Risk factors ?> 1 = 1-2 risk factors Initial troponin ?> 0 = <Normal limit Patient Education/Shared MDM: Results of lab work and imaging shared with patient. She endorses improvement of symptoms without any intervention. Patient is requesting to be discharged home without any further testing or treatment. Her blood work and imaging was all reassuring. She was strongly advised to maintain hydration status upon discharge and follow-up with her PCP as soon as possible. She will not be discharged home with any new prescriptions. Strict return precautions provided. Patient verbalized understanding and is in agreement with plan. Vital signs stable at time of discharge. All questions answered. Differential Diagnosis Differential diagnosis: Likely fracture of rib, atypical chest pain, st elevation myocardial infarction and chest pain Lab Data Attestation: I reviewed the patient's lab results. 12/12/24 18:52 12/12/24 18:52 Labs: Lab Results 12/12/24 12/12/24 Range/Units 18:52 22:08 WBC 6.6 (4.5-10.0) K/mm3 RBC 4.66 (4.2-5.4) M/mm3 Hgb 12.6 (12.0-15.0) g/dL Hct 38.7 (37.0-47.0) % MCV 83.0 (80-100) fl MCH 27.0 (26-34) pg MCHC 32.6 (32-36) g/dl RDW 15.1 H (11.5-14.5) % Plt Count 194 (150-375) k/mm3 MPV 11.5 H (7.4-10.4) fl Immature Gran % (Auto) 0.2 (0-0.5) % Neut % (Auto) 54.2 (45.5-73.1) % Lymph % (Auto) 31.3 (18.3-44.2) % [place] % (Auto) 10.7 H (2.6-8.5) % Eos % (Auto) 3.1 (0-4.4) % Baso % (Auto) 0.5 (0.2-1.2) % Lymph # (Auto) 2.05 (0.9-3.2) K/mm3 [place] # (Auto) 0.7 H (0.1-0.6) K/mm3 Eos # (Auto) 0.2 (0-0.3) K/mm3 Baso # (Auto) 0.0 (0.0-0.1) K/mm3 Abs Immat Gran (auto) 0.01 (0.00-0.031) K/mm3 Absolute Neuts (auto) 3.6 (1.3-6.7) K/mm3 Absolute Nucleated RBC 0.000 (0.0-0.012) K/mm3 Nucleated RBC % 0.0 (0.0-0.2) % PT 13.1 (11.1-14.7) Seconds INR 1.0 APTT 40.5 H (22.3-36.8) Seconds Sodium 137 (137-145) mmol/L Potassium 3.8 (3.4-5.0) mmol/L Chloride 103 (98-107) mmol/L Carbon Dioxide 23 (22-30) mmol/L Anion Gap 11 (4-12) mmol/L BUN 24 H (7-17) mg/dL Creatinine 0.65 L (0.7-1.0) mg/dL Estim Creat Clear Calc 99 ml/min Estimated GFR > 60 (59 - ) Glucose 79 (65-110) mg/dL Calcium 9.5 (8.4-10.2) mg/dL Total Bilirubin 0.4 (0.2-1.3) mg/dL AST 28 (14-36) U/L ALT 17 (6-35) U/L Alkaline Phosphatase 60 (38-126) U/L Troponin I < 0.012 < 0.012 (0.000-0.034) ng/mL Total Protein 7.4 (6.3-8.2) g/dL Albumin 4.2 (3.5-5.1) g/dL Lipase 70 (23-300) U/L Imaging Data Attestation: I personally reviewed and interpreted this imaging study as follows: Radiologist's impression: Impressions Chest X-Ray 12/12/24 19:00 Impression: No acute cardiopulmonary abnormality. Discharge Plan Discharge Clinical Impression: Atypical chest pain, Anxiety, GERD (gastroesophageal reflux disease) Patient Disposition: Home Condition: Stable Instructions: Antibiotic Form, Noncardiac Chest Pain (ED) Additional Instructions: Please return to the ER with any worsening symptoms. Follow-up with primary care provider as soon as possible for further evaluation. Take all medications as prescribed, including regularly scheduled medications. You may take Tylenol as needed for pain control. Patient Language: Sammarinese Prescriptions: No Action lorazepam 2 mg tablet 2 mg PO DAILY PRN esomeprazole magnesium 20 mg capsule,delayed release(DR/EC) 20 mg PO DAILY Qty: 30 11RF carvedilol 6.25 mg tablet 3.125 mg PO ONCE Follow-up/Referrals: Laureen,MD Tru [Primary Care Provider, Unknown] Time of Disposition: 23:45
--- OUTSIDE RECORDS SUMMARY | 2024-12-12 23:41 | XMS_ITS | Encounter Summary ---
Author Organization [facility] Address [address] [place] [address] Care Team Providers Care Echocardiograph Tech Name Role Phone Laura Baugh MD Primary Care Provider + Reason for Visit * Reason Onset Date Comments Medical management 02/05/2022 Gave message to INGA Shields/Chayito finley Encounter Details Date Type Department Care Team (Late st Contact Info) Description 02/05/2022 Telephone [facility] Admitting [address] [place] [address] [place] [address] [place] [address] Medical management (Gave message to [...] Coronavirus/COVID-19? 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
--- OUTSIDE RECORDS SUMMARY | 2024-12-12 23:42 | XMS_ITS | Clinical Summary ---
Author Organization [facility] [employer] Address [address] [place] [address] Care Team Providers Care Automotive Maintenance Technician Name Role Phone Laura Baugh MD Primary Care Provider [phone] Source Comments [facility],non-owned Affiliates and Associated Physician Practices is amultiple site organization consisting of ambulatory clinics and hospital sitesin [place], [place] and [place]. This disclosure is being madepursuant to the Care Everywhere program and may not contain all information available regarding this patient. Last updated 17.[facility] Allergies Active Allergy Reactions Criticality Noted Date [...] complete this topic Insurance AETNA Care Teams Automotive Maintenance Technician Relationship Specialty Start Date End Date Laura Baugh MD [address] [place] [id number] PCP - General Family Medicine 11/15/16
--- OUTSIDE RECORDS SUMMARY | 2024-12-12 23:42 | XMS_ITS | Clinical Summary ---
Author Organization [facility] Address [address] [place] [address] Care Team Providers Care Boat Driver Name Role Phone Laura Baugh MD Primary [...] Mrx - she will upload this into [employer] for me to review. I think it [...] age to complete this topic Insurance [place] HMO/POS [facility] Care Teams Boat Driver Relationship Specialty Start Date End Date Laura Baugh MD PCP - General 12/26/16
--- OUTSIDE RECORDS SUMMARY | 2024-12-12 23:42 | XMS_ITS | Clinical Summary ---
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 Gender Identity Not on file Sexual Orientation Not on file Last Filed Vital Signs Vital Sign Reading Time Taken Comments Blood Pressure 136/82 02/11/2020 8:09 AM MANAGER REGIONAL SALES Pulse 61 02/11/2020 8:09 AM MANAGER REGIONAL SALES Temperature 36.8 C (98.3 F) 02/11/2020 8:09 AM MANAGER REGIONAL SALES Respiratory Rate 18 02/11/2020 8:09 AM MANAGER REGIONAL SALES Oxygen Saturation 98% 02/11/2020 8:09 AM MANAGER REGIONAL SALES Inhaled Oxygen Concentration - - Weight 145.2 kg (320 lb) 02/11/2020 8:09 AM MANAGER REGIONAL SALES Height - - Body Mass Index - [...] this topic Insurance LUDIVINA JACOB Care Teams Claims Vice President Relationship Specialty Start Date End Date Laura Solitario MD [address] [place] [address] PCP - General Family Medicine 02/11/20
== END 2024-12-13 00:11 | disposition home or self-care (01) ==
PROVIDERS: Emergency Medicine; Emergency Provider Registered Nurse; PCP Internal Medicine
DX: R07.89 Other chest pain (principal); F41.9 Anxiety disorder, unspecified; K21.9 Gastro-esophageal reflux disease without esophagitis; R94.31 Abnormal electrocardiogram [ECG] [EKG]; M19.90 Unspecified osteoarthritis, unspecified site; Z86.718 Personal history of other venous thrombosis and embolism; G47.30 Sleep apnea, unspecified; I10 Essential (primary) hypertension; E66.9 Obesity, unspecified; Z68.37 Body mass index [BMI] 37.0-37.9, adult
CPT/HCPCS: 36415; 71046; 80053; 83690; 84484; 85025; 85610; 85730; 93005; 99284

== ENCOUNTER 2025-01-19 10:36 | Outpatient (CLI) | payer OTHER, SELFPAY ==
--- NOTE | ~2025-01-19 | US_ITS ---
ULTRASOUND ABDOMEN LIMITED (RIGHT UPPER QUADRANT) Clinical History: RUQ pain Comparison: CT abdomen pelvis 05/31/2022 Technique: Right upper quadrant sonography Findings: Liver: Enlarged. Echogenic. No intrahepatic biliary ductal dilatation. Normal hepatopedal flow main portal vein. Common Duct: Normal caliber. 3 mm. Gallbladder: No stones. No wall thickening. No pericholecystic fluid. Pancreas: Unremarkable. IMPRESSION: 1. No acute findings. Reviewed, dictated and finalized at location R. R SLAGMAN IMPRESSION: 1. No acute findings.
--- OUTSIDE RECORDS SUMMARY | 2025-01-19 15:25 | XMS_ITS | Clinical Summary ---
Author Organization [facility] Address [address] [place] [address] Phone Care Team Providers Care Thermodynamics Professor Name Role Phone Laura Baugh MD Primary [...] daily. 60 Tablet 2 02/06/2022 7:54 AM FLIGHT RESERVATIONS MANAGER 02/04/2022 Active ondansetron (Zofran) 4 mg Tablet Take 1 Tablet (4 mg) by mouth every 8 hours as needed for Nausea/Vomi ting. 50 Tablet 02/06/2022 7:54 AM FLIGHT RESERVATIONS MANAGER 02/04/2022 Active HYDROcodone-acet aminophen (HYCET) 7.5-325 mg/15 [...] Comments Blood Pressure 119/88 02/18/2022 12:51 PM FLIGHT RESERVATIONS MANAGER Pulse 76 02/18/2022 12:51 PM FLIGHT RESERVATIONS MANAGER Temperature 36.8 C (98.2 F) 02/18/2022 7:55 AM FLIGHT RESERVATIONS MANAGER Respiratory Rate 25 02/18/2022 12:51 PM FLIGHT RESERVATIONS MANAGER Oxygen Saturation 98% 02/18/2022 12:51 PM FLIGHT RESERVATIONS MANAGER Inhaled Oxygen Concentration - - Weight 123.4 kg (272 lb) 02/18/2022 7:55 AM FLIGHT RESERVATIONS MANAGER Height 162.6 cm (5' 4) 02/18/2022 7:55 AM FLIGHT RESERVATIONS MANAGER Body Mass Index 46.69 02/18/2022 7:55 AM FLIGHT RESERVATIONS MANAGER Plan of Treatment Health Maintenance Due Date [...] (1 of 2) 2022 INFLUENZA VACCINE (#1) 2024 9, 12/12/2016, 01/15/2016, Additional history exists Medical Devices Implanted Type Area Credit Risk Management Director Device Identifier Shelf Expiration Date Model / Serial / Lot Seamguard Endogia 60 Blk [id number] - [id number] Implanted:Qty : 2 on 02/04/2022 by Lashell Huang MD at [facility] N/A: Abdomen [employer] [id number] / / Seamguard Endogia 60 Prpl [id number] - [id number] Implanted:Qty : 3 on 02/04/2022 by Lashell Huang MD at [facility] N/A: Abdomen [employer] [id number] / / Insurance AETNA CHOICE POS II RX [facility] [employer] Advance Directives For more information, please contact: [phone] * Full Code (Latest Code Status on File) Date Activated Date Inactivated Comments 02/04/2022 8:26 PM 02/06/2022 12:34 AM * Full Code Date Activated Date Inactivated Comments 02/04/2022 8:14 AM 02/04/2022 8:25 PM Care Teams Thermodynamics Professor Relationship Specialty Start Date End Date Laura Baugh MD [address] [place] [phone] PCP - General Family Practice 02/05/22
--- OUTSIDE RECORDS SUMMARY | 2025-01-19 15:26 | XMS_ITS | Encounter Summary ---
Author Organization [facility] Address [address] [place] [address] Care Team Providers Care Local Superintendent Name Role Phone aLura Baugh MD Primary Care Provider + Reason for Visit * Reason Onset Date Comments Medical management 02/05/2022 Gave message to INGA Shields/Chayito finley Encounter Details Date Type Department Care Team (Late st Contact Info) Description 02/05/2022 Telephone [facility] Admitting [address] [place] [address] [place] [address] [place] [address] [place] [address] Medical management (Gave message to [...] Coronavirus/COVID-19? No / Unsure 01/30/2022 8:01 AM OIL HEATER OPERATOR documented as of this encounter Plan of Treatment Not on file documented as of this encounter Visit Diagnoses Not on filedocumented in this encounter Care Teams Local Superintendent Relationship Specialty Start Date End Date Laura Baugh MD [address] [place] [address] PCP - General Family Practice 02/05/22 documented as of this encounter
--- OUTSIDE RECORDS SUMMARY | 2025-01-19 15:26 | XMS_ITS | Clinical Summary ---
Author Organization [facility] Address [address] [place] [phone] Care Team Providers Care Paper Mill Manager Name Role Phone Laura Baugh MD [...] Mrx - she will upload this into [employer] for me to review. I think it [...] age to complete this topic Insurance AETNA [place] [address] LUDIVINA PEETZ HMO/POS Care Teams Paper Mill Manager Relationship Specialty Start Date End Date Laura Baugh MD PCP - General 12/26/16
--- OUTSIDE RECORDS SUMMARY | 2025-01-19 15:26 | XMS_ITS | Clinical Summary ---
Author Organization [facility] Address [address] [place] [address] Care Team Providers Care Second Cutter Name Role Phone Laura Baugh MD Primary Care Provider [phone] Source Comments [facility],non-owned Affiliates and Associated Physician Practices is amultiple site organization consisting of ambulatory clinics and hospital sitesin [place], [place], [place] and [place]. This disclosure is being madepursuant to the Care Everywhere program and may not contain all information available regarding this patient. Last updated 17.[facility] Allergies Active Allergy Reactions Criticality Noted Date [...] Years Used Date Smoking Tobacco: Former Cigarettes 0 Q uit: 2017 Smokeless Tobacco: Never Tobacco [...] of 3 - 19+ 3-dose series) 10/30/1991 Cervical Cancer Screening 1993 PAP SMEAR 1993 PAP with HPV 2002 SCREENING FOR DIABETES 07/10/2018 PNEUMOCOCCAL VACCINE 50+ (1 of 1 - PCV) 2022 ZOSTER VACCINE (1 of 2) 2022 DEPRESSION SCREENING 03/03/2024 COVID-19 VACCINE (1 - 2024- season) 2024 INFLUENZA VACCINE (#1) 2024 9, [...] complete this topic Insurance AETNA Care Teams Second Cutter Relationship Specialty Start Date End Date Laura Baugh MD [address] [place] [address] PCP - General Family Medicine 11/15/16
--- OUTSIDE RECORDS SUMMARY | 2025-01-19 15:26 | XMS_ITS | Clinical Summary ---
Author Organization [facility] Address [address] [place] [address] Phone Care Team Providers Care Business Applications Analyst Name Role Phone Laura Solitario MD Primary Care Provider [phone] Allergies Active Allergy Reactions Criticality Noted Date [...] on file Legal Sex Female 7:32 AM NATIONAL INSURANCE OFFICER Gender Identity Not on file Sexual Orientation Not on file Last Filed Vital Signs Vital Sign Reading Time Taken Comments Blood Pressure 136/82 02/11/2020 8:09 AM NATIONAL INSURANCE OFFICER Pulse 61 02/11/2020 8:09 AM NATIONAL INSURANCE OFFICER Temperature 36.8 C (98.3 F) 02/11/2020 8:09 AM NATIONAL INSURANCE OFFICER Respiratory Rate 18 02/11/2020 8:09 AM NATIONAL INSURANCE OFFICER Oxygen Saturation 98% 02/11/2020 8:09 AM NATIONAL INSURANCE OFFICER Inhaled Oxygen Concentration - - Weight 145.2 kg (320 lb) 02/11/2020 8:09 AM NATIONAL INSURANCE OFFICER Height - - Body Mass Index - - Plan of Treatment Health Maintenance Due Date Last Done Comments Hepatitis C Virus (HCV) Screening 1972 TdaP Immunization 1972 Varicella Immunization (1 of 2 - 13+ 2-dose series) 1985 Hepatitis B Immunization (1 of 3 - 19+ 3-dose series) 10/30/1991 Pap Smear 1993 Cervical Cancer Screening (CCS) 2002 HPV/Cotest 2002 Cologuard 2017 Colonoscopy 2017 Colorectal Cancer Screening 2017 Immunochemical Fecal Occult Blood 2017 Pneumococcal Immunization (50+ years) (1 of 1 - PCV) 2022 Zoster Immunization (1 of 2) 2022 Influenza Immunization (#1) 11/01/202412/02, 12/19/2017, 12/12/2016, Additional history exists SARS-COV-2 Immunization ( - 2024- season) 2024 Respiratory Syncytial Virus (RSV) Immunization [...] this topic Insurance LUDIVINA JACOB Care Teams Business Applications Analyst Relationship Specialty Start Date End Date Laura Solitario MD [address] [place] [address] PCP - General Family Medicine 02/11/20
--- OUTSIDE RECORDS SUMMARY | 2025-01-19 15:26 | XMS_ITS | Patient Health Record ---
Author Organization [facility] [employer] Address [address] [facility] [address] [place] [address] Care Team Providers Care Software Maintenance Engineer Name Role Phone Laureen CARRERA, Tru Primary Care Provider Un available Adryan Langford Unavailable [phone] Miguel Calles Unavailable [phone] Allergies Allergen (clinical drug ingredient) Drug/Non Drug Allergy documented on EMR Reaction Allergy Type Onset Date Status ciprofloxacin Cipro Unknown Drug Allergy Act kayla amoxicillin Amoxicillin Unknown Drug Allergy Act kayla Penicillin Unknown Drug Allergy Active Results Component Value Reference Range Flag Notes DRUG MONITOR, BENZO, QN, URI NE ([id number]) Reviewed date:04/06/2024 10:13:15 AM Interpretation: Performing Lab:CB, [facility] [id number] [id number] Samson Cuevas, Director - [id number] [facility] Notes/Report: FASTING: NO Alphahydroxyalprazolam NEGATIVE <25 [...] analytical performance characteristics have been determined by [employer]. It has not been cleared or approved by the FDA. This assay has been validated pursuant to the CLIA regulations and is used for clinical purposes. medMATCH(R) enables providers to identify if drug use is consistent or inconsistent with a corresponding prescribed medication(s) list. Healthcare Providers needing Interpretation assistance, please contact us at [phone] ( ) M-F, 8am to 10pm EST PRESCRIBED DRUGS, medMATCH(R ) ([id number]) Reviewed date:04/06/2024 10:13:25 AM Interpretation: Performing Lab:KS, [id number] Rabia Burks, [id number] Jenaro Viramontes MD Notes/Report: FASTING: NO medMATCH Summary Prescribed Prescribed Not Prescribed Consistent Inconsistent Inconsistent Lorazepam UDT Reviewed date:04/01/2024 11:57:43 AM Interpretation: Performing Lab: Notes/Report: Amphetamine (AMP) N 0 - 1000 ng/ml Buprenorphine (BUP) N 0 - 10 ng/ml Oxazepam (BZO) P 0 - 300 ng/ml Cocaine (SHEREE) N 0 - 300 ng/ml Methamphetamine (mAMP) N 0 - 300 ng/ml Methylenedioxymethamphetamin e (MDMA) N 0 - 500 ng/ml Morphine (MOP) N 0 - 25 ng/ml Methadone (MTD) N 0 - 300 ng/ml Oxycodone (OXY) N 0 - 300 ng/ml THC N 0 - 50 ng/ml x N 0 - 1000 ng/ml x N 0 - 1000 ng/ml x N 0 - 300 ng/ml x N 0 - 300 ng/ml x N 0 - 300 ng/ml UDT Reviewed date:06/08/2024 04:47:19 PM Interpretation: Performing Lab: Notes/Report: Amphetamine (AMP) N 0 - 1000 ng/ml Buprenorphine (BUP) N 0 - 10 ng/ml Oxazepam (BZO) P 0 - 300 ng/ml Cocaine (SHEREE) N 0 - 300 ng/ml Methamphetamine (mAMP) N 0 - 300 ng/ml Methylenedioxymethamphetamin e (MDMA) N 0 - 500 ng/ml Morphine (MOP) N 0 - 25 ng/ml Methadone (MTD) N 0 - 300 ng/ml Oxycodone (OXY) N 0 - 300 ng/ml THC N 0 - 50 ng/ml x N 0 - 1000 ng/ml x N 0 - 1000 ng/ml x N 0 - 300 ng/ml x N 0 - 300 ng/ml x N 0 - 300 ng/ml UDT Reviewed date:08/06/2024 02:10:02 PM Interpretation: Performing Lab: Notes/Report: Amphetamine (AMP) N 0 - 1000 ng/ml Buprenorphine (BUP) N 0 - 10 ng/ml Oxazepam (BZO) P 0 - 300 ng/ml Cocaine (SHEREE) N 0 - 300 ng/ml Methamphetamine (mAMP) N 0 - 300 ng/ml Methylenedioxymethamphetamin e (MDMA) N 0 - 500 ng/ml Morphine (MOP) N 0 - 25 ng/ml Methadone (MTD) N 0 - 300 ng/ml Oxycodone (OXY) N 0 - 300 ng/ml THC N 0 - 50 ng/ml x N 0 - 1000 ng/ml x N 0 - 1000 ng/ml x N 0 - 300 ng/ml x N 0 - 300 ng/ml x N 0 - 300 ng/ml Benzodiazepines Reviewed date:06/14/2024 05:10:15 PM Interpretation: Performing Lab:[address] [place] [address], [address] [place] [address], Director - [id number] Notes/Report: An exception occurred while processing this report and so it has incomplete data. Please contact [employer] for assistance. Not Medicated Consistent Not [...] date:06/14/2024 05:10:15 PM Interpretation: Performing Lab: Notes/Report: Validity Testing Reviewed date:08/13/2024 03:51:21 PM Interpretation: Performing Lab: Notes/Report: Not Medicated Consistent Not Medicated Consistent Not Medicated Consistent Not Medicated Consistent Specific [place] 1.017 1.003 - 1.030 pH 6.9 3.0 - 10.9 Oxidants -15 200 g/mL Creatinine 61.3 20.0 - 300.0 mg/dL Benzodiazepines Reviewed date:08/13/2024 03:51:21 PM Interpretation: Performing Lab:[address] [place] [address], [address] [place] [address], Director - [id number] Notes/Report: An exception occurred while processing this report and so it has incomplete data. Please contact [facility] for assistance. Not Medicated Consistent Not Medicated [...] day; Duration: 30 days 11/08/2024 Active GLP-1 Nursing Teacher - Kit as directed Active Magnesium Active [...] decision-maker Yes Do you have Power of Survey Chief for Health or [facility]? No Safety issues: Are there any [...] Notes Problem Obstructive sleep apnea syndrome (disorder) (77648749) Obstructive sleep apnea (adult) (pediatric) (G47.33) Active confirmed Problem Generalized anxiety disorder (11978118) ASHLEY (generalized anxiety disorder) (F41.1) Active confirmed Problem Hypertension (41899538) Hypertension (I10) 0 Active confirmed Vital Signs Heart Rate 66 /min 11/08/2024 Height-cm 162.56 cm 11/08/2024 Blood pressure diastolic 73 mm Hg 11/08/2024 Weight-kg 102.06 kg 11/08/2024 Height 64 in 11/08/2024 Blood pressure systolic 111 mm Hg 11/08/2024 Weight 225 lbs 11/08/2024 BMI 38.62 kg/m2 11/08/2024 Encounters Encounter Location Date Provider Diagnosis [facility], [place] [address] [facility] [address] [address] 04/01/2024 Miguel Clubb ASHLEY (generalized anxiety disorder) F41.[address] [address] 04/12/2024 Adryan Primitivo ASHLEY (generalized anxiety disorder) F41.1 and Hypertension I10 [address] [address] 06/07/2024 Adryan Primitivo Encounter for screen ing for depression Z13.31 ; Encounter for screening for cardiovascular disorders Z13.6 ; ASHLEY (generalized anxiety disorder) F41.1 and Hypertension I10 [address] [address] 08/06/2024 Adryan Primitivo ASHLEY (generalized anxiety disorder) F41.1 ; Negative depression screening Z13.31 ; Encounter for screening for cardiovascular disorders Z13.6 and Obstructive sleep apnea (adult) (pediatric) G47.[address] [address] 11/08/2024 Adryan Primitivo ASHLEY (generalized anxiety disorder) F41.1 ; Obstructive sleep apnea (adult) (pediatric) G47.33 and Hypertension I10 [address] [address] 11/05/2024 Adryan Primitivo [address] [address] 11/05/2024 Adryan Primitivo Assessments Encounter Date Diagnosis (ICD Code) Assessment Notes Treatment Notes Treatment Clinical Notes Section Notes 04/01/2024 ASHLEY (generalized anxiety disorder) (ICD-10 - F41.1) 06/07/2024 Encounter for screening for depression (ICD-10 - Z13.31) 11/08/2024 Obstructive sleep apnea [...] 1 tablet as needed, with 2 refills. 08/06/2024 ASHLEY (generalized anxiety disorder) (ICD-10 - F41.1) Patient reports manageable anxiety with occasional panic attacks. Lorazepam dosage reduced to 1.5 tablets. Patient prefers tapering off medication. - Continue lorazepam at 1.5 tablets. - Consider tapering lorazepam further in three months. - Evaluate anxiety symptoms at next visit. 08/06/2024 Negative depression screening (ICD-10 - Z13.31) 04/12/2024 ASHLEY (generalized anxiety disorder) (ICD-10 - F41.1) 04/12/2024 Hypertension (ICD-10 - I10) 08/06/2024 Encounter for screening for cardiovascular disorders (ICD-10 - Z13.6) 11/08/2024 Hypertension (ICD-10 - I10) History of high blood pressure, previously managed with carvedilol. Patient stopped carvedilol about a month and a half ago due to low blood pressure readings (105/65). Blood pressure has gradually decreased with weight loss. - Monitor blood pressure at least once or twice daily for the month without medication. - Discuss blood pressure management with wire inserter at upcoming appointment. 06/07/2024 Encounter for screening for cardiovascular disorders (ICD-10 - Z13.6) 06/07/2024 ASHLEY (generalized anxiety disorder) (ICD-10 - F41.1) 08/06/2024 Obstructive sleep apnea (adult) (pediatric) (ICD-10 - G47.33) Patient has a history of obstructive sleep apnea diagnosed 10 years ago. Symptoms have improved with weight loss. Patient interested in reassessing condition. - Order home sleep study to reassess sleep apnea. - Review results with sleep specialist. - Provide CPAP machine if necessary. 06/07/2024 Hypertension (ICD-10 - I10) 04/01/2024 Other [...] primary care physician, Dr. Zhen Lloyd, and wire inserter. - Reinforce the importance of therapy and [...] ensure accuracy, there may be errors, including ammonia nitrate operator inaccuracies and misspellings of medication names. This document should not be considered a verbatim record, and any discrepancies should be verified with the provider. Plan Of Treatment Next Appt Details Provider Name:Adryan Langford , 01/31/2025 02:30:00 PM, [address], [facility] [address], [place], [address], Insurance Providers Payer Name Payer Address Payer Phone Subscriber Number Group Number Insured Name Patient Relationship to Insured Coverage Start Date Coverage End Date Jg MUNROE [id number] DEL[place]IS AMBROCIO [id number] NIMA GARCIA Spouse - patient is the [...]
== END 2025-01-19 10:37 | disposition home or self-care (01) ==
PROVIDERS: PCP Internal Medicine; Visit Provider Surgery
DX: R10.10 Upper abdominal pain, unspecified (principal)
CPT/HCPCS: 76705